=== PATIENT | male | born 1960 | race Asian ===

== ENCOUNTER 2023-02-26 10:39 | Emergency (ER) | payer OTHER, SELFPAY ==
[2023-02-26 10:58] VITALS: BP 159/106; PULSE 75; RESP 16; TEMP 36.3; O2SAT 99
--- NOTE | 2023-02-26 11:13 | ED.URI ---
HPI - URI/Sore Throat General Chief Complaint: Upper Respiratory Infection Stated Complaint: congestion,cough,sore throat,headache Time Seen by Provider: 02/26/23 11:02 Source: patient and RN notes reviewed Mode of arrival: ambulatory Limitations: no limitations History of Present Illness HPI Narrative: Patient presents today complaining of sore throat, congestion, cough, headache since last night with worsening this morning. Denies fever or shortness of breath. States son is also sick with similar symptoms. Currently rates his sore throat 03/07 and has been taking Tylenol with some mild relief of headache. Related Data Home Medications Medication Instructions Recorded Confirmed allopurinol 100 mg tablet mg 02/26/23 canagliflozin 300 mg tablet mg 02/26/23 (Invokana) enalapril maleate 5 mg tablet mg 02/26/23 fenofibrate 160 mg tablet mg 02/26/23 fluoxetine 40 mg capsule mg 02/26/23 glipizide 2.5 mg tablet, extended mg PO 02/26/23 release 24 hr loratadine 10 mg tablet mg 02/26/23 metformin 500 mg tablet,extended mg PO 02/26/23 release 24 hr metoprolol succinate 50 mg mg PO 02/26/23 tablet,extended release 24 hr metoprolol succinate 50 mg mg PO 02/26/23 tablet,extended release 24 hr montelukast 10 mg tablet mg 02/26/23 omega-3 fatty acids 500 mg PO DAILY 02/26/23 02/26/23 Review of Systems Review of Systems: CONSTITUTIONAL: Denies body aches, fever, chills, or sweats. EYES: Denies visual changes, redness, or discharge. ENT: Denies rhinorrhea, or otalgia.+ sore throat, congestion CARDIOVASCULAR: Denies chest pain, palpitations, or edema. RESPIRATORY: Denies dyspnea.+ cough GASTROINTESTINAL: Denies abdominal pain, nausea, vomiting, or diarrhea. GENITOURINARY: Denies dysuria or hematuria. SKIN: Denies rash, itching, or wounds. MUSCULOSKELETAL: Denies back pain, joint pain, or myalgia. NEUROLOGIC: Denies numbness, tingling, or weakness.+ headache PSYCH: Denies depression or anxiety. PMFSH Comments At time of signature, I have reviewed and agree with nursing past medical, surgical, social and family history unless otherwise noted. Please see nursing chart for further information. There is no relevant family history pertinent to the presenting complaint Exam Narrative: GENERAL: Mildly ill-appearing, well-nourished, and in no acute distress. HEAD: Normocephalic, atraumatic. EYES: EOMI. No redness or drainage. Conjunctivae normal. ENT: Mucous membranes pink and moist. Nares congested with rhinorrhea. TMs normal bilaterally. Throat normal. Uvula midline. NECK: Normal AROM. Supple. No lymphadenopathy. CHEST: No respiratory distress. Clear to auscultation. HEART: Regular rate and rhythm. No murmur appreciated. Normal peripheral pulses. EXTREMITIES: Normal range of motion. No edema. SKIN: Warm, dry, no rash. Capillary refill normal. Normal skin turgor. NEURO: No focal deficits. Alert and oriented x3. Gait steady. PSYCH: Normal affect. No signs of depression or anxiety. Course Course Level of Care: Express Care Visit Vital Signs Vital signs: Vital Signs Temperature 97.3 F L 02/26/23 10:58 Pulse Rate 75 02/26/23 10:58 Respiratory Rate 16 02/26/23 10:58 Blood Pressure 159/106 H 02/26/23 10:58 Pulse Oximetry 99 02/26/23 10:58 Temperature 97.3 F L 02/26/23 10:58 Pulse Rate 75 02/26/23 10:58 Respiratory Rate 16 02/26/23 10:58 Blood Pressure 159/106 H 02/26/23 10:58 Pulse Oximetry 99 02/26/23 10:58 Reviewed. Pt has been instructed to follow up with his PCP regarding his elevated blood pressure today. MDM - URI/Sore Throat MDM Narrative Medical decision making narrative: Given patient's early swab collection and son positive during this visit as well with patient with similar symptoms, I will also treat patient with amoxicillin for presumed strep infection. Anticipatory guidance given. Differential Diagnosis Differential diagnosis: Likely
== END 2023-02-26 11:33 | disposition home or self-care (01) ==
PROVIDERS: Emergency Provider Nurse Practitioner
DX: J02.9 Acute pharyngitis, unspecified (principal); Z79.84 Long term (current) use of oral hypoglycemic drugs
CPT/HCPCS: 87081; 87880; 99213; G0463

== ENCOUNTER 2024-05-05 08:03 | Emergency (ER) | payer OTHER, SELFPAY ==
--- NOTE | 2024-05-05 08:16 | ED.SKABFB ---
HPI - Skin/Abscess/Foreign Bdy General Chief complaint: Skin/Abscess/Foreign Body Stated complaint: Bite left leg Time Seen by Provider: 05/05/24 08:22 Source: patient, RN notes reviewed and old records reviewed Mode of arrival: ambulatory Limitations: no limitations History of Present Illness HPI narrative: 63 year old male patient presents to Express Care with complaints of being bit or stung by something on his left lower leg on Thursday when he was outside. He has had progressively increased redness around area with swelling of left lower leg into foot. Patient reports that he has not had any fevers chills or sweats or any body aches. Patient has 0.5cm raised lesion to the left lower medial aspect of his left lower leg with surrounding redness noted and swelling. Patient denies any pain to his left calf negative CORINNA's sign. MD complaint: insect bite/sting Onset (ago): day(s) (day 3 of symptoms) Location: [facility] Severity scale (1-10): 7 Pain Consistency: constant Treatments prior to arrival: other (cortisone ointment to area) Related Data Home Medications Medication Instructions Recorded Confirmed allopurinol 100 mg tablet 100 mg PO BID 02/26/23 05/05/24 atorvastatin 80 mg tablet 80 mg PO DAILY 02/26/23 05/05/24 canagliflozin 300 mg tablet 300 mg PO DAILY 02/26/23 05/05/24 (Invokana) enalapril maleate 5 mg tablet 5 mg PO DAILY 02/26/23 05/05/24 fenofibrate 160 mg tablet 160 mg PO DAILY 02/26/23 05/05/24 fluoxetine 40 mg capsule 40 mg PO DAILY 02/26/23 05/05/24 glipizide 2.5 mg tablet, extended 2.5 mg PO DAILY 02/26/23 05/05/24 release 24 hr loratadine 10 mg tablet 10 mg PO BID 02/26/23 05/05/24 metformin 500 mg tablet,extended 2,000 mg PO DAILY 02/26/23 05/05/24 release 24 hr metoprolol succinate 50 mg 50 mg PO DAILY 02/26/23 05/05/24 tablet,extended release 24 hr montelukast 10 mg tablet 10 mg PO DAILY 02/26/23 05/05/24 omega-3 fatty acids 500 mg PO DAILY 02/26/23 05/05/24 Allergies Allergy/AdvReac Type Severity Reaction Status Date / Time acetaminophen [From Percocet] Allergy Swelling Verified 05/05/24 08:37 lisinopril Allergy Swelling Verified 05/05/24 08:37 oxycodone [From Percocet] Allergy Swelling Verified 05/05/24 08:37 Review of Systems Review of Systems: CONSTITUTIONAL: Denies fever, chills, or sweats. CARDIOVASCULAR: Denies chest pain, palpitations, or edema. RESPIRATORY: Denies cough or dyspnea. GASTROINTESTINAL: Denies abdominal pain, nausea, vomiting SKIN: Reports redness and swelling. to the medial posterior aspect of left lower leg with lesion from bite or sting with surrounding redness Denies purulent drainage, pain to area with palpation and itching MUSCULOSKELETAL: Denies myalgia. NEUROLOGIC: Denies headache, numbness All systems reviewed & are unremarkable except as noted in HPI and below PMFSH Past Medical History Medical History Diabetes Elevated cholesterol Hypertension Sleep apnea with use of continuous positive airway pressure (CPAP) Surgical History Surgical History History of ankle surgery right ankle fusion Social History Social History (Updated 05/05/24 @ 16:29 by Dee Terry NP) Smoking status: Former smoker Additional smoking assessment comments: quit 15 years ago Alcohol intake: current Alcohol use details: rare social Substance use type: does not use Living arrangements: with family Gender identity (if verbalized by the patient): Male Comments At time of signature, agree with nursing past medical, surgical, social and family history. There is no relevant family history pertinent to the presenting complaint Exam Narrative: GENERAL: Well-appearing, well-nourished, and in no acute distress. HEAD: Normocephalic, atraumatic. EYES: PERRLA and EOMI. ENT: Nares clear, no rhinorrhea or epistaxis. Mucous membranes moist. NECK: S
[2024-05-05 08:18] VITALS: BP 160/100; PULSE 66; RESP 16; TEMP 36.6; O2SAT 100
== END 2024-05-05 08:53 | disposition home or self-care (01) ==
PROVIDERS: Emergency Provider Registered Nurse; PCP Nurse Practitioner
DX: L03.116 Cellulitis of left lower limb (principal); S80.862A Insect bite (nonvenomous), left lower leg, initial encounter; W57.XXXA Bitten or stung by nonvenomous insect and other nonvenomous arthropods, initial encounter; Z87.891 Personal history of nicotine dependence; E11.9 Type 2 diabetes mellitus without complications; Z79.84 Long term (current) use of oral hypoglycemic drugs; E78.00 Pure hypercholesterolemia, unspecified; I10 Essential (primary) hypertension; G47.30 Sleep apnea, unspecified
CPT/HCPCS: 99213; G0463

== ENCOUNTER 2024-05-10 15:42 | Emergency (ER) | payer OTHER, SELFPAY ==
[2024-05-10 15:58] VITALS: BP 142/96; PULSE 74; RESP 16; TEMP 37.1; O2SAT 99
--- NOTE | 2024-05-10 16:43 | ED.GENADULT ---
HPI - General Adult General Chief complaint: Extremity Problem,Nontraumatic Stated complaint: Left Leg Pain Time Seen by Provider: 05/10/24 16:40 Source: patient, RN notes reviewed and old records reviewed Mode of arrival: ambulatory Limitations: no limitations History of Present Illness HPI narrative: 63-year-old male to Express Care for complaint left knee pain for 2 days. Patient states that he was seen here on 05/05 and diagnosed/ treated for cellulitis left lower leg. Patient states that he returned to work on Thursday. Patient states that yesterday and today are his scheduled days off and that he has had difficulty bearing weight on left leg due to severe pain in left knee. Patient denies any prior injury or surgery to knee. Patient denies numbness, tingling, weakness. Patient ambulated to exam room with slow but steady gait. Patient sitting in exam room in no acute distress. Respirations even and nonlabored. Related Data Home Medications Medication Instructions Recorded Confirmed allopurinol 100 mg tablet 100 mg PO BID 02/26/23 05/10/24 atorvastatin 80 mg tablet 80 mg PO DAILY 02/26/23 05/10/24 canagliflozin 300 mg tablet 300 mg PO DAILY 02/26/23 05/10/24 (Invokana) enalapril maleate 5 mg tablet 5 mg PO DAILY 02/26/23 05/10/24 fenofibrate 160 mg tablet 160 mg PO DAILY 02/26/23 05/10/24 fluoxetine 40 mg capsule 40 mg PO DAILY 02/26/23 05/10/24 glipizide 2.5 mg tablet, extended 2.5 mg PO DAILY 02/26/23 05/10/24 release 24 hr loratadine 10 mg tablet 10 mg PO BID 02/26/23 05/10/24 metformin 500 mg tablet,extended 2,000 mg PO DAILY 02/26/23 05/10/24 release 24 hr metoprolol succinate 50 mg 50 mg PO DAILY 02/26/23 05/10/24 tablet,extended release 24 hr montelukast 10 mg tablet 10 mg PO DAILY 02/26/23 05/10/24 omega-3 fatty acids 500 mg PO DAILY 02/26/23 05/10/24 Allergies Allergy/AdvReac Type Severity Reaction Status Date / Time acetaminophen [From Percocet] Allergy Swelling Verified 05/10/24 17:30 lisinopril Allergy Swelling Verified 05/10/24 17:30 oxycodone [From Percocet] Allergy Swelling Verified 05/10/24 17:30 Review of Systems Review of Systems: All systems reviewed & are unremarkable except as noted in HPI and below Constitutional: Constitutional: Reports no additional constitutional complaints Eyes: Eyes: Reports no additional eye complaints ENT: Reports system reviewed and no additional complaints, except as documented Cardiovascular: Cardiovascular: Reports no additional cardiovascular complaints, Denies chest pain and Denies dyspnea Respiratory: Respiratory: Reports no additional respiratory complaints, Denies cough and Denies dyspnea Musculoskeletal: Musculoskeletal: Reports as per HPI, Reports abnormal gait, Reports arthralgias ( left knee), Denies muscle weakness, Denies numbness and Denies tingling Neurologic: Reports system reviewed and no additional complaints, except as documented Psychiatric: Psychiatric: Reports no additional psychiatric complaints PMFSH Past Medical History Medical History Diabetes Elevated cholesterol Hypertension Sleep apnea with use of continuous positive airway pressure (CPAP) Surgical History Surgical History History of ankle surgery right ankle fusion Social History Social History Smoking status: Former smoker Additional smoking assessment comments: quit 15 years ago Alcohol intake: current Alcohol use details: rare social Substance use type: does not use Living arrangements: with family Gender identity (if verbalized by the patient): Male Comments At the time of my signature, I reviewed and agree with the nursing past medical, surgical, social, and family history. There is no relevant family history pertinent to the patient complaint. Exa
== END 2024-05-10 17:07 | disposition short-term general hospital (02) ==
LOC: EXPGOSH 15:45
PROVIDERS: Emergency Provider Nurse Practitioner Family; PCP Nurse Practitioner
DX: M25.562 Pain in left knee (principal); Z87.891 Personal history of nicotine dependence; E11.9 Type 2 diabetes mellitus without complications; Z79.84 Long term (current) use of oral hypoglycemic drugs; E78.00 Pure hypercholesterolemia, unspecified; I10 Essential (primary) hypertension; G47.30 Sleep apnea, unspecified
CPT/HCPCS: 99212; G0463

== ENCOUNTER 2024-05-10 17:29 | Emergency (ER) | payer OTHER, SELFPAY ==
--- NOTE | ~2024-05-10 | XR_ITS ---
EXAM: XR knee LT min 4V DATE: 05/10/2024 18:30 HISTORY: left knee pain . COMPARISON: None available. FINDINGS: Normal mineralization. No fracture or dislocation. No lytic or blastic lesion. Mild tricom partmental left knee osteoarthritis. Quadriceps enthesopathy. No erosion or periosteal change. Soft t issue thickening and swelling anterior to the patellar tendon. IMPRESSION: No acute osseous finding the left knee. Anterior soft tissue swelling, correlate for cont usion/cellulitis. Reviewed, dictated and finalized at location K. IMPRESSION: No acute osseous finding the left knee. Anterior soft tissue swelli ng, correlate for contusion/cellulitis.
--- NOTE | ~2024-05-10 | US_ITS ---
EXAMINATION: US venous doppler [facility] DATE: 05/10/2024 18:54 INDICATION: leg swelling pain r/o dvt . TECHNIQUE: Grayscale images without and with compression and Doppler images of the left lower extremi ty veins were obtained. COMPARISON: None FINDINGS: The left common femoral vein, profunda (deep) femoral vein, femoral vein, popliteal vein, peroneal v ein, posterior tibial veins, and greater saphenous vein are patent. IMPRESSION: Patent left lower extremity veins. No evidence of deep venous thrombosis. Reviewed, dictated and finalized at location K.
[2024-05-10 17:35] VITALS: BP 157/92; PULSE 78; RESP 20; TEMP 36.6; O2SAT 100
--- NOTE | 2024-05-10 18:14 | ED.EXTPRO ---
HPI - Extremity Problem General Chief complaint: Extremity Problem,Nontraumatic Stated complaint: sent from for possible cellulitis Time Seen by Provider: 05/10/24 20:46 Source: patient Mode of arrival: ambulatory Limitations: no limitations History of Present Illness HPI Narrative: This is a 63-year-old male that presents to the emergency department for left knee pain. Ongoing since last night. Reports swelling of the area. Reports history of gout. Reports pain with range of motion and weight-bearing. No recent injury or trauma. Denies fevers, erythema. Related Data Home Medications Medication Instructions Recorded Confirmed allopurinol 100 mg tablet 100 mg PO BID 02/26/23 05/10/24 atorvastatin 80 mg tablet 80 mg PO DAILY 02/26/23 05/10/24 canagliflozin 300 mg tablet 300 mg PO DAILY 02/26/23 05/10/24 (Invokana) enalapril maleate 5 mg tablet 5 mg PO DAILY 02/26/23 05/10/24 fenofibrate 160 mg tablet 160 mg PO DAILY 02/26/23 05/10/24 fluoxetine 40 mg capsule 40 mg PO DAILY 02/26/23 05/10/24 glipizide 2.5 mg tablet, extended 2.5 mg PO DAILY 02/26/23 05/10/24 release 24 hr loratadine 10 mg tablet 10 mg PO BID 02/26/23 05/10/24 metformin 500 mg tablet,extended 2,000 mg PO DAILY 02/26/23 05/10/24 release 24 hr metoprolol succinate 50 mg 50 mg PO DAILY 02/26/23 05/10/24 tablet,extended release 24 hr montelukast 10 mg tablet 10 mg PO DAILY 02/26/23 05/10/24 omega-3 fatty acids 500 mg PO DAILY 02/26/23 05/10/24 Allergies Allergy/AdvReac Type Severity Reaction Status Date / Time acetaminophen [From Percocet] Allergy Swelling Verified 05/10/24 17:30 lisinopril Allergy Swelling Verified 05/10/24 17:30 oxycodone [From Percocet] Allergy Swelling Verified 05/10/24 17:30 Review of Systems Review of Systems: CONSTITUTIONAL: Denies fever SKIN: Denies erythema MUSCULOSKELETAL: Reports joint pain, and myalgia. NEUROLOGIC: Denies numbness All systems reviewed & are unremarkable except as noted in HPI and below PMFSH Past Medical History Medical History Diabetes Elevated cholesterol Hypertension Sleep apnea with use of continuous positive airway pressure (CPAP) Surgical History Surgical History History of ankle surgery right ankle fusion Social History Social History Smoking status: Former smoker Additional smoking assessment comments: quit 15 years ago Alcohol intake: current Alcohol use details: rare social Substance use type: does not use Living arrangements: with family Gender identity (if verbalized by the patient): Male Exam Narrative: GENERAL: Well-appearing, well-nourished, and in no acute distress. HEAD: Normocephalic, atraumatic. EYES: EOMI. CHEST: Clear to auscultation. No respiratory distress. No wheezes rales or rhonchi HEART: Regular rate and rhythm. No murmur heard. Normal peripheral pulses. EXTREMITIES: Normal range of motion. Mild edema about the left knee anteriorly. No erythema. Normal DP pulse SKIN: Warm, dry, no rash. NEURO: No focal deficits. Alert and oriented x3. PSYCH: Normal mood and affect Course Course Emergency Course: Patient was updated on workup and recommendation for further evaluation. He would like to be discharged at this time. Reports he has an appointment with his primary tomorrow and will follow-up Vital Signs Vital signs: Vital Signs Temperature 98 F 05/10/24 17:35 Pulse Rate 78 05/10/24 17:35 Respiratory Rate 20 05/10/24 17:35 Blood Pressure 157/92 H 05/10/24 17:35 Pulse Oximetry 100 05/10/24 17:35 Oxygen Delivery Room Air 05/10/24 17:35 Temperature 97.7 F 05/10/24 22:03 Pulse Rate 67 05/10/24 22:03 Respiratory Rate 18 05/10/24 22:03 Blood Pressure 176/96 H 05/10/24 22:03 Pulse Oximetry 97 05/10/24 22:03 Oxygen
[2024-05-10 21:35] LABS: Basophils Absolute Auto 0.1 K/mm3 (0.0-0.1); Basophils Percent Auto 0.8 % (0.2-1.2); Eosinophils Absolute Auto 0.2 K/mm3 (0-0.3); Eosinophils Percent Auto 2.8 % (0-4.4); Hematocrit 41.9 % (42.0-52.0); Hemoglobin 14.3 g/dL (14.0-18.0); Immature Granulocyte Absolute 0.03 K/mm3 (0.00-0.031); Immature Granulocyte Percent A 0.4 % (0-0.5); Lymphocytes Absolute Auto 1.49 K/mm3 (0.9-3.2); Lymphocytes Percent Auto 20.7 % (18.3-44.2); Mean Corpuscular HGB Conc 34.1 g/dl (32-36); Mean Corpuscular Hemoglobin 30.4 pg (26-34); Mean Corpuscular Volume 89.1 fl (80-100); Mean Platelet Volume 9.5 fl (7.4-10.4); Monocytes Absolute Auto 0.6 K/mm3 (0.1-0.6); Monocytes Percent Auto 8.6 % (2.6-8.5); Neutrophils Absolute Auto 4.8 K/mm3 (1.3-6.7); Neutrophils Percent Auto 66.7 % (45.5-73.1); Platelet Count Result 245 k/mm3 (150-375); Red Cell Distribution Width 12.5 % (11.5-14.5); White Blood Count 7.2 K/mm3 (4.5-10.0)
[2024-05-10 21:44] LABS: Lactic Acid Reflex 3.2 mmol/L (0.7-2.0)
[2024-05-10 21:45] LABS: Uric Acid 4.9 mg/dL (3.5-8.5)
[2024-05-10 21:51] LABS: Alanine Aminotransferase 18 U/L (6-50); Albumin Level 4.3 g/dL (3.5-5.1); Alkaline Phosphatase 49 U/L (38-126); Anion Gap 10 mmol/L (4-12); Aspartate Amino Transferase 24 U/L (17-59); Bilirubin,Total 0.6 mg/dL (0.2-1.3); Blood Urea Nitrogen 18 mg/dL (9-20); CRP 1.2 mg/dL (<1.0); Calcium 9.2 mg/dL (8.4-10.2); Carbon Dioxide 23 mmol/L (22-30); Chloride 104 mmol/L (98-107); Estimated CRCL calculation 90 ml/min; Estimated Glomerular Filt Rate > 60; Glucose 186 mg/dL (65-110); Potassium 3.8 mmol/L (3.4-5.0); Sodium 137 mmol/L (137-145)
[2024-05-10] MEDS: INDOMETHACIN 25 MG CAPSULE 50 MG PO (21:55)
[2024-05-10 22:03] VITALS: BP 176/96; PULSE 67; RESP 18; TEMP 36.5; O2SAT 97
[2024-05-10] MEDS: SODIUM CHLORIDE 0.9% IV 1,000 ML 999 ML IV CONT (22:27)
[2024-05-10 22:32] LABS: Erythrocyte Sedimentation Rate 15 mm/hr (0-20)
[2024-05-11 00:31] LABS: Reflex Lactic Acid Yes or No Add Lactic
[2024-05-11 00:34] VITALS: BP 137/79; PULSE 79; RESP 16; TEMP 36.5; O2SAT 98
--- NOTE | 2024-05-11 00:36 | PC.NURSE ---
pt verbalized to JOSHUA Cho that he had an eve wrap at home. No eve wrap applied in this er.
== END 2024-05-11 00:36 | disposition home or self-care (01) ==
PROVIDERS: Nurse Practitioner Family; Emergency Provider Physician Assistant; PCP Family Medicine
DX: M70.52 Other bursitis of knee, left knee (principal); M10.9 Gout, unspecified; E87.20 Acidosis, unspecified; R60.0 Localized edema; I10 Essential (primary) hypertension; E11.9 Type 2 diabetes mellitus without complications; E78.00 Pure hypercholesterolemia, unspecified; G47.30 Sleep apnea, unspecified; Z87.891 Personal history of nicotine dependence; Z79.899 Other long term (current) drug therapy; Z79.84 Long term (current) use of oral hypoglycemic drugs
CPT/HCPCS: 36415; 73564; 80053; 83605; 84550; 85025; 85652; 86140; 93971; 96360; 99284; A9270; J7030

== ENCOUNTER 2025-04-01 21:01 | Emergency (ER) | payer OTHER, SELFPAY ==
[2025-04-01 21:02] VITALS: BP 155/91; PULSE 73; RESP 20; TEMP 36.4; O2SAT 95
--- OUTSIDE RECORDS SUMMARY | 2025-04-01 21:03 | XMS_ITS | Encounter Summary ---
Author Name [facility] Organization [facility] Address [address] [place] [address] Care Team Providers Care Maintenance Department Manager Name Role Phone DILEEP HENNING Primary Care Provider Unavailabl e Selected Encounter This section includes the information on record at [place] for the Encounter. Date/Time Encounter Type Encounter Description Reason Pro vider Source IHE Encounter Template Text not used by [facility] Advance Directives: All historical and current Section Date Range: From patient's date of to the date document was created. This section includes ALL of a patient's completed or amended [place] Advance and Rescinded Directives. The entries below indicate that a directive exists for the patient, but an actual copy is not included with this document. The data comes from all [place] facilities. Date Advance Directives Provider Source February 19, 2017 ADVANCE DIRECTIVE DISCUSSION MICHEAL DALTON [facility]
--- OUTSIDE RECORDS SUMMARY | 2025-04-01 21:03 | XMS_ITS | Data Portability ---
Author Organization [facility], 800 [facility] ([place]) Address [address] [place] [address] Care Team Providers Care Cleat Blanker Name Role Phone LISA TANO Primary Care Provider [facility] Referring Provider Assessment Encounter Date Assessment Date Assessment LastModified by Organization Details LastModified Time 11/17/2024 11/17/2024 ASSESSMENT: 1. Right acute ankle pain, status post injury. 2. 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 PLAN: At this point in time this could be an exacerbation of severe arthrosis with an injury. The arthrosis probably stems from his tibiotalar fusion. Our recommendation is to obtain an weightbearing CAT scan to evaluate this. We will see him back after the results. CHIEF COMPLAINT: Right ankle pain. HISTORY OF PRESENT ILLNESS: The patient presents today regarding his right ankle. He had a fusion a few years ago, but recently a couple of months ago he stepped off of some type of platform approximately 2-3 feet high, and landed awkwardly. He has had pain ever since. He has been concerned about this as it is an achy pain. It hurts him all throughout the ankle, but anterolaterally specifically. He has been taking anti-inflammatorie s, modifying his activities. He is here today for evaluation and treatment. PHYSICAL EXAMINATION: CONST: No acute distress. EYES: No icterus. RESP: Breathing appears normal. No use of accessory muscles. CV: Pulses palpable in feet. MSK: On standing alignment, unable to do single-leg heel rise. On sitting examination, tender over the sinus tarsi, slightly over the medial malleolus and lateral malleolus. There is mild edema. SKIN: No jaundice. PSYCH: Stable mood and affect. NEURO: No speech difficulty. Reviewed pertinent diagnostic tests, lab work, and imaging. These were reviewed with the patient. X-rays independently reviewed. 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 PLAN: At this point in time, we discussed his findings of severe arthrosis. We talked about operative and nonoperative treatment. Operative intervention would entail right subtalar fusion at proximal tibia autograft. The risks, benefits and alternatives were discussed. CHIEF COMPLAINT: Right ankle CT follow up. HISTORY OF PRESENT ILLNESS: The patient returns today overall doing the same. He is having pain on a daily basis. It hurts him. It is an achy pain in his ankle. He is here today to discuss his CT scan. PHYSICAL EXAMINATION: CONST: No acute distress. EYES: No icterus. RESP: Breathing appears normal. No use of accessory muscles. CV: Pulses palpable in feet. MSK: Patient s right lower extremity is neurovascularly intact, strength is 5/5, capillary refill is brisk, and sensations are intact. Range of motion is intact as expected. Minimal pain with subtalar motion. Mild edema. Tender over the sinus tarsi. SKIN: No jaundice. PSYCH: Stable mood and affect. NEURO: No speech difficulty. Reviewed pertinent diagnostic tests, lab work, and imaging. These were reviewed with the patient. X-rays and CT scan reviewed independently. [email or web address] Not available 12/06/2024 18:22:51 03/30/2025 03/30/2025 Grant returns today following right ankle hardware removal, subtalar fusion, proximal tibial bone graft. Patient is doing well. Pain has been well-controlled. Physical exam: Incision is well-healed. Calf is soft and nontender on operative extremity. Normal neurovascular function to the operative extremity. Plan: Patient was placed into boot today. Boot is to remain on at all times. Continue to remain nonweightbearing. Patient is to contact our office if they have any questions, concerns, or further problems. Follow up at 6 weeks post-op with x-rays. Patient was also given physical therapy order to set up physical therapy to start after their next appointment. [email or web address] Not available 03/30/2025 10:19:38 Plan of Treatment Reminders Order Date Submit Date Provider Last Modified By Organization Details Last Modified Time Details Appointments Establish ed Patient 10 XR.EST 2024 09:50A M Dr. Brian Marcos Not available Not available Not available Lab None recorded. Referral None recorded. Procedures None recorded. Surgeries None recorded. Imaging CT, ankle, w/o contrast - Procedure : RT ANKLE CT W/O CPT: 64507 ICD10/Dx: M25.571 DOS: TBD Facility: [address] Ordering Provider: BRIAN MARCOS MD Insurance : [place] Notes: 2024 025 [facility], [address] [place] [address], [address], 11/29/2024 14:52:48 Medication Orders None recorded. Patient TargetsNo targets recorded. Patient InstructionsNo instructions recorded. Reason for Referral None Reported. Results Created Date Observation Date Name Description Value Unit Range Abnormal Flag Note LastModifiedBy Organization Detail LastModifiedTime 11/22/19 25 11/17/2024 XR, ankle , 3 or more view [address] [address] Teleph one Name: Grant Sr [id number] am Date: 2024 Age: 63Phys ician: Ezequiel tinoco MD, Luca in : 1960Ex aminat ion: XR ANKLE COMPLE TE RIGHT EXAM: 3 views right ankle HISTOR Y: Pain FINDIN GS: Previo us tibiot alar arthro desis site appear s be well-h ealed. Subtal ar arthro sis is noted in appear s to be modera te to severe . There may be promin ent hardwa re within the subtal ar joint. No acute fractu res. IMPRES KYLE: Likely modera te to severe subtal ar arthro sis. Previo us tibiot alar arthro desis. Electr onical ly signed in Osborn cribe by: LUCA Tinoco MD on:10/30 7:14 AM cc: Page PAGE 1 of [facility] ES 1 INTERFACE [facility] Only - [facility] [address], [place], [address], 11/22/2024 08:17:50 11/30/19 25 11/29/2024 CT, ankle , w/o contr ast [facility] [address] [place] [address] Teleph one [phone] Name: Grant Sr [id number] am Date: 2024 Age: 63Phys ician: Ezequiel tinoco MD, Benjam in : 1960Ex aminat ion: CT ANKLE RIGHT EXAM: CT right ankle and foot withou t IV contra st HISTOR Y: Sandra g injury on right ankle a few months ago. Contin ued pain to rosmery latera l region . Prior fusion . TECHNI QUE: CT of the right ankle and foot was perfor med withou t IV contra st admini strati on. Campbell l and sagitt al reform atted images were obtain ed. Automa josep exposu re contro l was used as a dose optimi zation techni que for the examin ation. 3-D volume render ed images were also obtain ed. COMPAR JOSUE: X-rays 025. FINDIN GS: There is solid tibiot alar and distal tibiof ibular osseou s bridgi ng. There is dorsal plate and screw fixati on fernando sing the tibiot alar joint. No hardwa re compli cation presen t. There is severe anteri or production broacher ior subtal ar osteoa rthrit is. There is mild to modera te midfoo t and first MTP osteoa rthrit is. There are small degene rative calcan eal enthes ophyte s. No fractu re, disloc ation or osseou s resorp tion presen t. IMPRES KYLE: 1. Solid ankle arthro deses. No compli cation . 2. Severe subtal ar osteoa rthrit is. Electr onical ly signed in Osborn cribe by: DANIEL SANTANA MD on:11/29 1:49 PM cc: Page PAGE 1 of [facility] ES 1 [email or web address] [facility] [address], [place], [address], 11/29/2024 17:31:24 01/24/20 25 06/19/2021 imagi ng/di agnos tic resul t No observ ation record ed. [email or web address] Not Available 07:29:34 01/24/2009/18/2021 imagi ng/di agnos tic resul t No observ ation record ed. [email or web address] Not Available 07:29:37 Result Notes Documentation Provider Name and Address Organization Details Recorded Time Xr, Ankle, 3 Or More View : [facility] [address] [place] [address] Name: Grant Saenz Date: 11/17/2024 Age: 63Physician: MD Marcos Benjamin : 1960Examination: XR ANKLE COMPLETE RIGHT EXAM: 3 views right ankle HISTORY: Pain FINDINGS: Previous tibiotalar arthrodesis site appears be well-healed. Subtalar arthrosis is noted in appears to be moderate to severe. There may be prominent hardware within the subtalar joint. No acute fractures. IMPRESSION: Likely moderate to severe subtalar arthrosis. Previous tibiotalar arthrodesis. Electronically signed in PowerScribe by: BRIAN MARCOS MD on:11/22/2024 7:14 AM cc: Page PAGE 1 of [facility] 1 [facility] Available [facility] 11/22/[facility]24 08:17:50 Ct, Ankle, W/o Contrast : [facility] [address] [place] [address] Name: Grant Saenz Date: 11/29/2024 Age: 63Physician: MD Marcos Benjamin : 1960Examination: CT ANKLE RIGHT EXAM: CT right ankle and foot without IV contrast HISTORY: Landing injury on right ankle a few months ago. Continued pain to anterolateral region. Prior fusion. TECHNIQUE: CT of the right ankle and foot was performed without IV contrast administration. Coronal and sagittal reformatted images were obtained. Automated exposure control was used as a dose optimization technique for the examination. 3-D volume rendered images were also obtained. COMPARISON: X-rays 11/17/2024. FINDINGS: There is solid tibiotalar and distal tibiofibular osseous bridging. There is dorsal plate and screw fixation traversing the tibiotalar joint. No hardware complication present. There is severe anterior posterior subtalar osteoarthritis. There is mild to moderate midfoot and first MTP osteoarthritis. There are small degenerative calcaneal enthesophytes. No fracture, dislocation or osseous resorption present. IMPRESSION: 1. Solid ankle arthrodeses. No complication. 2. Severe subtalar osteoarthritis. Electronically signed in PowerScribe by: DANIEL SANTANA MD on:11/29/2024 1:49 PM cc: Page PAGE 1 of [facility] 1 Brian Marcos MD [address] [place] [address], [phone], [facility] 11/29/2024 17:31:24 Problems Name Problem SNOMED Code Status Onset Date Resolution Date Notes Provider Name and Address Organization Details Recorded Time Chronic ankle pain 3509688095354 9 [facility] 2024 [facility] 14:29:15 Osteoarthri tis of joint of right ankle and/or foot 9521664599963 09 Active 2024 Daisy Ortiz [facility] 5 21:04:36 Problem Notes None recorded. Procedures Surgical History Date Name Laterality Status Provider Name and Address Organization Details Recorded Time 03/15/20 25 subtalar arthrodesis [facility] 03/15/2025 16:21:17 Colonoscopy with biopsy completed Not Available Health Note 11/11/2024 17:12:04 Imaging Results None recorded. Procedure Notes None recorded. Medical Equipment None Reported. Allergies Allergen ID Allergen Name Allergen Category Reaction Reaction Severity Criticality Documentation Date Start Date Code Code System Note Provider Name and Address Organization Details Recorded Time 2457801 Product containin g angiotens in-conver ting enzyme inhibitor (product) medicatio n cough Not available Not available 10/28/20232013 75450 009 SNOMED React ion: Cough ; Not Available [facility] 4 04:30:11 7732274 empaglifl ozin medicatio n Not available Not available Not available 07/06/20242023 46585 53 RxNorm Not Available [facility] 4 20:28:10 5820328 acetamino phen / oxycodone medicatio n Not available Not available [facility] 07/06/20242012 31890 3 RxNorm throa t swell ing Antoinette Tanmay [facility] 5 13:23:33 8729895 lisinopri l medicatio n swelling Not available Not available 07/06/20242017 40393 RxNorm Antoinette Keavy [facility] 5 13:22:41 9971125 chlorphen iramine / phenylpro panolamin e medicatio n Not available Not available Not available 02/27/20252006 32805 4 RxNorm Antoinette Tanmay [facility] 5 13:23:49 907849 acetamino phen / oxycodone medicatio n Not available Not available Not available 10/26/20232011 89406 3 RxNorm Not Available [facility] 4 21:48:02 168439 losartan potassium medicatio n Not available Not available Not available 10/26/20232011 00088 0 RxNorm Not Available [facility] 4 21:48:02 Medications Name Sig Start Date Stop Date Status Note LastModified by Organization Details LastModified Time clindamycin HCl 300 mg capsule TAKE 1 CAPSULE BY MOUTH EVERY 8 HOURS WITH FOOD active Not Available Not Available No t Available hydrocodone 5 mg-acetamin ophen 325 mg tablet Take 1-2 tablet(s) EVERY 6 HOURS by oral route. 2024 active Not Available Not Available Not Avai lable acetaminoph en 300 mg-codeine 30 mg tablet TAKE 1-2 TABLETS BY MOUTH EVERY 6 HOURS NEEDED 02/27 completed Not Available Not Available Not Available hydrocodone 7.5 mg-acetamin ophen 325 mg tablet TAKE 1 TABLET BY MOUTH EVERY 6 HOURS NEEDED FOR PAIN active Not Available Not Available No t Available indomethaci n 50 mg capsule TAKE 1 CAPSULE BY MOUTH THREE TIMES DAILY WITH FOOD OR MILK FOR 1 WEEK active Not Available Not Available No t Available mupirocin 2 % topical ointment APPLY TOPICALLY TO THE AFFECTED AREA TWICE DAILY active Not Available Not Available No t Available Vitals None Recorded Social History Question Answer Notes LastModified by Organizat ion Details LastModified Time Tobacco Smoking Status Former Smoker Not Available Health Note 11/11/2024 17:12:04 Do You Have An Advance Directive? No [email or web address] Information not available 11/11/2024 What Is Your Level Of Caffeine Consumption? Occasional [email or web address] Information not available 11/11/2024 How Many Times Per Week Do You Exercise? Less Than 1 Time Per Week [email or web address] Information not available 11/11/2024 When Did You Quit Smoking? 2005 [email or web address] Information not available 11/11/2024 What Was The Date Of Your Most Recent Tobacco Screening? 11/17/2024 [email or web address] Information not available 11/11/2024 What Is Your Relationship Status? [email or web address] Information not available 11/11/2024 Sex: Unknown Functional Status Question Answer Note LastModified by Organizat ion Details LastModified Time How many times per week do you consume alcohol? Less than 1 time per week [email or web address] Information not available 11/11/2024 Do you use any illicit or recreational drugs? No [email or web address] Information not available 11/11/2024 What is your level of alcohol consumption? Occasional [email or web address] Information not available 11/11/2024 Are you currently employed? 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 Occasional [email or web address] Information not available 11/11/2024 Mental Status None recorded. Family History Relationship Description Onset Age of this Age Resolved Age Notes LastModified by Organization Details LastModified Time Mother Alzheimer's disease [email or web address] Not available 2024 17:12:03 Mother Arthritis [email or web address] Not available 11/11/2024 17:12:03 Mother Kidney disease [email or web address] Not available 2024 17:12:03 Brother Asthma [email or web address] Not available 0 11/11/2024 17:12:03 Brother Hypertensive disorder [email or web address] Not available 2024 17:12:03 Sister Family history of malignant neoplasm [email or web address] Not available 2024 17:12:03 Father Hypertensive disorder [email or web address] Not available 2024 17:12:03 Father Cerebrovascu lar accident [email or web address] Not available 17:12:03 Medical History Condition Response High Blood Pressure Y COPD N Depression N Anxiety Disorder N Arthritis Y Cancer N Stroke N Fibromyalgia N Kidney Disease N Attention-deficit Hyperactivity Disorder N Thyroid Problems Y Anemia N Diabetes Y Bleeding Disorder N Hyperlipidemia N Asthma N Seizures N Heart Disease N Osteoporosis Y Past Encounters Encounter ID Performer Location Encounter Start Date Encounter Closed Date Diagnosis/Indication Diagnosis SNOMED-CT Code Diagnosis ICD10 Code Diagnosis Note [id number] Brian Marcos MD [address] [facility]) [address] [place] [address] 11/17/2024 10:03:30 11/17/2024 11:25:56 Chronic ankle pain 3023757265 9109 M25.571 G89.29 Exhaustion due to excessive exertion 77488546 X50.1XXA History of arthrodesis 952162910 Z98.1 [id number] Brian Marcos MD [facility] ([place]) [address], [place] [address] 12/06/2024 09:25:36 12/06/2024 09:47:36 Osteoarthritis of joint of right ankle and/or foot 5533812088 92042 M19.071 History of arthrodesis 318483616 Z98.1 [id number] Germain Powers PA-C [address] [facility] ([place] [address] [place] [address] 03/30/2025 10:14:48 03/31/2025 06:44:49 Osteoarthritis of joint of right ankle and/or foot 7640209074 92742 M19.071 Health Concerns Section Related Observation LastModified by Organization Detai ls LastModified Time None Recorded Concern Status LastModified by Organization Details LastModified Time None Recorded Advance Directives Directive N: Payers Insurance Date Sequence Insurance Name Policy Number Policy Lund Covered Member ID Lund Member ID Guarantor Name 03/29/2025 [facility] Grant Saenz [id number] Grant Saenz 03/27/2025 [employer] (MOVED TO HOLD) Grant Saenz Notes Date Note Type Note Provider Name and Address Organization Details Recorded Time 11/17/2024 text/html Grant Aly a 63 year oldmalepresenting for care. Visit Reason: Ankle or Foot Ankle/Foot/Toe Concerns: -Location: -arch of right foot, dorsal surface of right foot -right anterior, posterior, lateral ankle -Setting of injury/concern: Lost balance and fell approx. 2 -3 ft. High -Sports related injury: no -Duration: approximately 03 month(s) -Pain onset/timing: sudden onset, occurs at night, interrupts sleep -Severity of pain: current severity 06/07 -Quality of pain: aching, sharp, stabbing, throbbing -Exacerbating factors: weight-bearing, walking -Alleviating factors: elevation of ankle/foot, non-weight bearing -Patient complains of: difficulty ambulating, limited ROM -Denies: ecchymosis, catching/locking, deformity, drainage, fevers, warmth, instability, numbness, popping/clicking, erythema, swelling of surrounding area, tightness of shoes, wound/laceration of the affected area -Supportive treatments tried: OTC ankle brace -Prior ankle/foot surgery: yes, described by patient as Right ankle fused, done approximately 04 year(s) ago -Pain impacting ADLs: yes Treatments: -Seen by outside providers: yes, per patient Idusuyi -Prior imaging/studies:MRI, X-ray -Prior imaging/studies location:[facility] -Previous treatments: injections, medications, occupational therapy, physical therapy, surgery -Prior injections: did not improve pain, last injection approximately 6 year(s) ago -Prior medications: Ibuprofen, tylenol , last treatment approximately 3 year(s) ago -Prior occupational therapy: improved symptoms a little, last treatment approximately 3 year(s) ago -Denies prior: acupuncture, chiropractic treatments -Prior injury/difficulty with affected area: patient denies Additional Information: -[place] Referral: Yes -Concern origination: OTHER Camping ROS: General:Unplanned Weight Gain/Loss Cardiac:Negative Respiratory:Negative GI:Negative :Negative Musculoskeletal:Negati ve Skin:Negative Neuro:Negative Endo:Negative Hem:Negative Brian Marcos MD [address] [place] [address], [phone], [facility] 11/18/2024 08:45:26 12/06/2024 text/html Grant Felicianogermaine a 63 year oldmalepresenting for care. Brian Marcos MD [address] [place] [address], [phone], [facility] 12/07/2024 13:41:39 03/30/2025 text/html Grant Aly a 64 year oldmalepresenting for care. Germain Powers PA-C [address] [place] [address], [phone], [facility] 03/30/2025 10:31:13
--- OUTSIDE RECORDS SUMMARY | 2025-04-01 21:04 | XMS_ITS | Encounter Summary ---
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
--- OUTSIDE RECORDS SUMMARY | 2025-04-01 21:04 | XMS_ITS | Encounter Summary ---
Author Name [facility] [place] [facility] [place] [facility] [place] Address [address] [place] [address] Care Team Providers Care Scientist Immunology Name Role Phone DILEEP HENNING Primary Care Provider Unavailabl e Selected Encounter This section includes the information on record at [place] for the Encounter. Date/Time Encounter Type Encounter Description Reason Pro vider Source Mar 01, 2025 05:59 AM Outpatient Encounter COMMUNITY CARE CONSULT IHE Encounter Template Text not used by [place] Plan of Treatment: Future Appointments (+ 6 months) and Future Tests (+/- 45 days) The Plan of Treatment section includes future care activities for the patient from all [place] treatmentfacilities. This section includes future appointments and future orders which are active, pending or scheduled. Future Appointments This section includes appointments that were scheduled to occur 6 months from the date of the Encounter, up to a maximum of 20 appointments. The data comes from all [place] treatment facilities. Appointment Date/Time Appointment Type Appointme nt Facility Name Apr 07, 2025 10:30 AM AMBULATORY - NONE [facility] May 23, 2025 11:00 AM AMBULATORY - MEDICINE [facility] Active, Pending, and Scheduled Orders This section includes a listing of several types of active, pending, and scheduled orders, including clinic medications orders, diagnostic test orders, procedure orders and consult orders; where the start date of the order is 45 days before the date of the Encounter or 45 days after the date of theEncounter. The data comes from all [place] treatment facilities. Test Date/Time Test Type Test Details Facility Name Feb 28, 2025 04:44 PM Consult Order [facility]LE[facility] MANDIBULAR REPOSITIONING DEVICE STL Cons [employer] [facility] Social History: Smoking Status (Most current) and Tobacco Use (All prior to encounter date) This section includes the most current, and the historical, smoking and tobacco- related health factors from the [place] facility where the Encounter took place. Current Smoking Status This section includes the most current smoking, or tobacco-related health factor, from the [place] facility where the Encounter took place. Date/Time Current Smoking Status Comment Facil ity Sep 30, 2019 11:19 AM VA-TOBACCO FORMER USER [facility] Tobacco Use History This section includes a history of the smoking, or tobacco-related health factors, that were collected on or before the date of the Encounter. The data comes from the [place] facility where the Encounter took place. Date/Time Smoking Status/Tobacco Use Comment F acility Sep 30, 2019 11:19 AM [place]-TOBACCO QUIT 5 TO < 15 YRS [facility] February 11, 2017 09:46 AM QUIT TOBACCO >7 YEARS AGO [facility] February 20, 2016 09:01 AM LIFETIME NON-USER OF TOBACCO [facility] Dec 22, 2014 11:03 AM LIFETIME NON-USER OF TOBACCO [facility] Dec 30, 2013 09:52 AM LIFETIME NON-USER OF TOBACCO [facility] Aug 03, 2012 10:16 AM QUIT TOBACCO >12 M O & <7 YRS AGO [facility] Advance Directives: All historical and current Section Date Range: From patient's date of to the date document was created. This section includes ALL of a patient's completed or amended [place] Advance and Rescinded Directives. The entries below indicate that a directive exists for the patient, but an actual copy is not included with this document. The data comes from all [place] facilities. Date Advance Directives Provider Source February 19, 2017 ADVANCE DIRECTIVE DISCUSSION MICHEAL DALTON [facility] Encounter Notes: All associated encounter notes This section contains the clinical notes associated to the Encounter. Date/Time Encounter Note(s) Provider Source Mar 01, 2025 05:59 AM NONVA NOTE: LOCAL TITLE: COMMUNITY CARE-CARE COORDINATION PLAN NOTE [address] STAND[address] TITLE: NONVA NOTE DATE OF NOTE: MAR 01, 2025@05:59 ENTRY DATE: MAR 01, 2025@05:59:43 AUTHOR: RAVINDRA PRICE EXP COSIGNER: URGENCY: STATUS: COMPLETED Community Care Consult: [facility] SLEEP MANDIBULAR REPOSITIONING DEVICE Consult No: [id number] [facility] Referral #: [id number] Chief Complaint: Obstructive Sleep Apnea Patient Admitted? No Level of Care Coordination Moderate Care Coordination was determined from: Chart Review Facility Community Care Office Contact Care Coordination Point of Contact: Ravindra Price RN Services: Moderate Care Coordination Services Case Management, if appropriate Direct communications with interdisciplinary team Continuation of care with current Provider. Auth. to be sent to [facility] and Fax to Provider. Assistance with navigation of scheduling, as needed. Obtain medical records and/or RFS form. Follow up with Episodes of care for Sleep medicine and recommended treatment. /es/ RAVINDRA PRICE REGISTERED NURSE Signed: 03/01/2025 06:02 RAVINDRA PRICE [facility]
--- OUTSIDE RECORDS SUMMARY | 2025-04-01 21:04 | XMS_ITS | Encounter Summary ---
Author Name [facility] [place] Organization [facility] [place] Address [address] [place] [address] Care Team Providers Care Peoplesoft Functional Analyst Name Role Phone DILEEP HENNING Primary Care Provider Unavailabl e Selected Encounter This section includes the information on record at [place] for the Encounter. Date/Time Encounter Type Encounter Description Reason Provider Source Aug 18, 2024 02:30 PM OFFICE O/P EST LOW 20 MIN PRIMARY CARE/MEDICINE ICD-10-CM M25.571 Pain in right ankle and joints of right foot DILEEP HENNING [facility] Encounter Template Text not used by [place] Assessments - Encounter Diagnoses This section includes the primary and secondary diagnoses documented for the Encounter. Date/Time Primary/Secondary Diagnosis Diagnosis Name Provider Source Aug 18, 2024 03:38 PM PRIMARY Pain in right ankle and joints of right foot DILEEP HENNING [facility] Aug 18, 2024 03:38 PM SECONDARY Encounter for immunization KALEN REYES [facility] Plan of Treatment: Future Appointments (+ 6 months) and Future Tests (+/- 45 days) The Plan of Treatment section includes future care activities for the patient from all [place] treatmentfacilities. This section includes future appointments and future orders which are active, pending or scheduled. Future Appointments This section includes appointments that were scheduled to occur 6 months from the date of the Encounter, up to a maximum of 20 appointments. The data comes from all [place] treatment facilities. Appointment Date/Time Appointment Type Appointme nt Facility Name Nov 17, 2024 10:00 AM AMBULATORY - SURGERY [facility] Cate [facility] Nov 23, 2024 09:00 AM AMBULATORY - MEDICINE [facility] Lab Results: +/- 30 days of the encounter This section includes the Chemistry and Hematology Lab Results on record with [place] for the patient. Radiology Reports and Pathology Reports are provided separately, in subsequent sections. Lab Results This section contains the Chemistry/Hematology Results that were resulted 30 days before or 30 daysafter the date of the Encounter. Date/Time Source Result Type Result - Unit Interpretation Reference Range Specimen Type Comment Aug 18, 2024 02:33 PM [facility] GLUCOSE,BLOOD-poct (STL) BLOOD Specimen Type: BLOOD Comment: Test Performed by: [id number] Meter #: [id number] Ordering Provider: DILEEP HENNING Report Released Date/Time: Aug 18, 2024 03:57 PM Reporting Lab: [address] [id number] Performing Lab: [address] [id number] GLUCOSE,BLOOD-poct (STL) 124 mg/dL H 72-99 Vital Signs: All taken on the encounter date This section contains inpatient and outpatient Vital Signs collected on the date of the Encounter. Date/Time Temperature Pulse Blood Pressure Respiratory Rate SP02 Pain Height Weight Body Mass Index Source Aug 18, 2024 02:31 PM 98 79 128/75 16 97 4 71 216.2 30 [facility] Immunizations: All administered on the encounter date This section contains immunizations associated to the Encounter. Immunization Series Date Issued Administered By Site Reaction Lot Number CVX Code Drug Sales Leader Comment(s) Source INFLUENZA, SPLIT VIRUS, TRIVALENT, PF Aug 18, 2024 JACOB REYES A LEFT DELTO ID [id number] [facility] Social History: Smoking Status (Most current) and Tobacco Use (All prior to encounter date) This section includes the most current, and the historical, smoking and tobacco- related health factors from the [facility] where the Encounter took place. Current Smoking Status This section includes the most current smoking, or tobacco-related health factor, from the [place] facility where the Encounter took place. Date/Time Current Smoking Status Comment Suresh diamond May 24, 2024 09:00 AM VA-TOBACCO FORMER USER [facility] Tobacco Use History This section includes a history of the smoking, or tobacco-related health factors, that were collected on or before the date of the Encounter. The data comes from the [place] facility where the Encounter took place. Date/Time Smoking Status/Tobacco Use Comment F acility May 24, 2024 09:00 AM VA-TOBACCO QUIT 15 YRS OR MORE [facility] Apr 23, 2023 11:00 AM VA-TOBACCO FORMER USER [facility] Apr 23, 2023 11:00 AM VA-TOBACCO QUIT 5 TO < 15 YRS [facility] Mar 20, 2022 11:00 AM VA-TOBACCO FORMER USER [facility] Mar 20, 2022 11:00 AM VA-TOBACCO QUIT 5 TO < 15 YRS [facility] Nov 22, 2020 11:00 AM VA-TOBACCO FORMER USER [facility] Nov 22, 2020 11:00 AM VA-TOBACCO QUIT 15 YRS OR MORE [facility] Jan 18, 2018 03:50 PM QUIT TOBACCO >7 YEARS AGO [facility] Oct 09, 2017 10:53 AM QUIT TOBACCO >7 YEARS AGO [facility] Advance Directives: All historical and current Section Date Range: From patient's date of to the date document was created. This section includes ALL of a patient's completed or amended [place] Advance and Rescinded Directives. The entries below indicate that a directive exists for the patient, but an actual copy is not included with this document. The data comes from all [facility]. Date Advance Directives Provider Source February 19, 2017 ADVANCE DIRECTIVE DISCUSSION MICHEAL DALTON [facility] Radiology Reports: +/- 30 days of the encounter Radiology Reports For cases when an order for radiology services may have been completed prior to the date of the Encounter, the report list includes the Radiology Reports that were completed up to 30 days before dateof the Encounter. For cases when an order for radiology services may have been completed after the date of the Encounter, the report list also includes the Radiology Reports that were completed up to30 days after date of the Encounter. The data comes from all [place] treatment facilities. Date/Time Radiology Report Provider Source Aug 18, 2024 06:46 AM ANKLE,RIGHT, 3 VIE WS: ISSAC BUTLER [id number] M Exm Date: AUG 18, 2024@06:46 Req Phys: DILEEP HENNING Pat Loc: -[facility] PACT B PCP (Katy'g Loc) Img Loc: -[facility] RADIOLOGY SUITE Service: Unknown [facility], [address] [place] [address] (Case [id number] COMPLETE) ANKLE,RIGHT, 3 VIEWS (RAD Detailed) CPT:73753 Proc Modifiers : RIGHT, Stand AP, APLatMorts Reason for Study: right ankle pain Clinical History: Report Status: Verified Date Reported: AUG 18, 2024 Date Verified: AUG 18, 2024 Electronic Systems Technician E-Sig:/ES/CATHIE PINK Report: CASE #: [id number] DATE:08/18/2024 3:17 PM CLINICAL HISTORY:right ankle pain TECHNIQUE: ANKLE,RIGHT, 3 VIEWS COMPARISON: Right ankle radiograph from 05/31/2024. Redemonstration of surgical fusion of the ankle joint. No evidence of prosthesis loosening. No new lytic or blastic bony lesion is seen. Marginal osteophytic spur seen at the talonavicular joint. Calcaneal spurs noted. No soft tissue swelling around the ankle seen. Impression: Redemonstration of fusion at the ankle joint without significant interval change Dictated by Adeline Concepcion M.D. (Diagnostic Graphic Engineer). Icathie, have reviewed the images and report and concur with these findings. Primary Interpreting Staff: CATHIE PINK, RADIOLOGIST (Electronic Systems Technician) Primary Interpreting Resident: ADELINE CONCEPCION Resident Physician /CATHIE [facility] Encounter Notes: All associated encounter notes This section contains the clinical notes associated to the Encounter. Date/Time Encounter Note(s) Provider Source Aug 18, 2024 02:58 PM PRIMARY CARE NOTE: LOCAL TITLE: PRIMARY CARE PROVIDER ESTABLISHED VISIT [facility] STANDARD TITLE: PRIMARY CARE NOTE DATE OF NOTE: AUG 18, 2024@14:58 ENTRY DATE: AUG 18, 2024@14:58:43 AUTHOR: DILEEP HENNING EXP COSIGNER: URGENCY: STATUS: COMPLETED PRIMARY CARE PROVIDER ESTABLISHED VISIT ST Has ADDENDA ESTABLISHED PATIENT VDCP-GX-IOGG: REASON FOR VISIT/CHIEF COMPLAINT: - c/o right ankle pain He lost balance & landed on hisbright foot from a height . happened 10 days ago since then his chronic right ankle pain flared up. It is especially worse after walking and when he keeps it in the dependent position for more than half an hour ALLERGIES: PERCOCET, LOSARTAN, LISINOPRIL ALLERGY REVIEW: Allergy list reviewed and remains current. MEDICATION RECONCILIATION: I have reviewed the patient's medication list with the patient and/or his/her care-product manager medical device. Handwritten corrections, additions and/or deletions were made to the list. Corrected Outpatient Medication List was provided to the patient/caregiver. Active Outpatient Medications (including Supplies): Active Non-VA Medications Status 1) Non-VA ALLOPURINOL 100MG TAB 100MG BY MOUTH TWICE A ACTIVE DAY 2) Non-VA ATORVASTATIN CALCIUM 80MG TAB 40MG BY MOUTH ACTIVE EVERY EVENING 3) Non-VA CANAGLIFLOZIN 300MG TAB 300MG BY MOUTH ONCE A ACTIVE DAY 4) Non-VA CHOLECALCIF 50MCG (D3-2,000UNIT) TAB 50MCG BY ACTIVE MOUTH ONCE A DAY 5) Non-VA ENALAPRIL MALEATE 5MG TAB 5MG BY MOUTH ONCE A ACTIVE DAY 6) Non-VA FENOFIBRATE 160MG TAB 160MG BY MOUTH ONCE A ACTIVE DAY 7) Non-VA FISH OIL 1000MG (500MG DHA/EPA) CAP 1000MG BY ACTIVE MOUTH TWICE A DAY 8) Non-VA FISH OIL 1000MG (500MG DHA/EPA) CAP,ORAL BY ACTIVE MOUTH 9) Non-VA FLUOXETINE HCL 20MG CAP 40MG BY MOUTH EVERY ACTIVE MORNING 10) Non-VA FLUTICASONE PROP 50MCG 120D NASAL INHL 2 ACTIVE SPRAYS NOSTRIL(S) ONCE A DAY 11) Non-VA GLIPIZIDE 5MG TAB 2.5MG BY MOUTH EVERY DAIY ACTIVE 12) Non-VA LORATADINE 10MG TAB 10MG BY MOUTH ONCE A DAY ACTIVE 13) Non-VA METFORMIN HCL 1000MG TAB 1000MG BY MOUTH TWICE ACTIVE A DAY WITH MEALS 14) Non-VA METOPROLOL SUCCINATE 100MG SA TAB 50MG BY ACTIVE MOUTH ONCE A DAY Most recent labs : LDL : 90 mg/dL L (05/24/24 09:30) HDL : 36 mg/dL L (05/24/24 09:30) TRI : 1148 mg/dL H (05/24/24 09:30) CHOLESTEROL 197 mg/dL 05/24/2024 09:30 HGA1C 6.6 H % 05/24/2024 09:30 HGA1C 6.2 H % 04/20/2023 09:22 HGA1C 7.0 H % 05/27/2022 10:01 HGA1C 7.4 H % 05/01/2021 13:04 HGA1C 7.5 H % 03/29/2020 09:19 VITAMIN D, 25-HYDROXY 21.2 L ng/mL 05/24/2024 09:30 TSH 0.621 uIU/mL 05/24/2024 09:30 PROST. SPECIFIC AG.(PB-STL) 0.422 ng/mL 05/24/2024 09:30 WBC : 4.9 10*3/uL (05/24/24 09:30) HGB 15.4 g/dL 05/24/2024 09:30 MCV :88.1 fL (05/24/24 09:30) PLT 359 10*3/uL 05/24/2024 09:30 SODIUM 135 L mEq/L 05/24/2024 09:30 POTASSIUM 3.6 mEq/L 05/24/2024 09:30 CALCIUM : 9.9 mg/dL (05/24/24 09:30) CREATININE 0.93 mg/dL 05/24/2024 09:30 GLUCOSE 234 H mg/dL 05/24/2024 09:30 SGOT : 31 U/L (05/24/24 09:30) SGPT : 21 U/L (05/24/24 09:30) ALKALINE PHOSPHATASE 67 U/L 05/24/2024 09:30 Weight : Patient Weight History - Last Four 1. 216.2 lbs. / 98.1 kg. on AUG 18, 2024@14:31:22 2. 214.6 lbs. / 97.3 kg. on MAY 24, 2024@09:44:42 3. 215.8 lbs. / 97.9 kg. on MAR 22, 2024@09:53:26 4. 219.0 lbs. / 99.3 kg. on FEBRUARY 25, 2024@13:03:32 Vitals : ----- Temp : 98 F [36.7 C] (08/18/2024 14:31) BP : 128/75 (08/18/2024 14:31) MI : 79 (08/18/2024 14:31): RR : 16 (08/18/2024 14:31) POX: 97% (08/18/2024:) Objective findings: Alert , oriented X 3 Not in acute distress Extremities- no pedal edema , good pedal pulses, both feet warm Rt ankle : slightly bigger than left ankle , no erythema midline scar anteriorly no point tenderness on palpation ASSESSMENT/PLAN: Above labs reviewed with patient Patient gives verbal permission to leave messages on voice mail # Acute over chronic Rt ankle pain : he had multiple surgeries on Rt ankle , s/p fusion . Xrays : pending advised rest ( he works at [employer]),local ice , elevation of feet Ibuprofen 600 mgs tid , icy hot advised rest for a week from work , but patient declined & requests letter only for 3 days SUMMARY STATEMENT: Plan of care has been discussed with including expected therapeutic benefits and potential side effects of prescribed medication and treatments. verbalizes understanding and is in agreement with the plan of care. Patient was instructed to keep all scheduled appointments and contact spare person for any additional problems. Medication Reconciliation Opt STL: I have reviewed the patient's medication list (including active outpatient prescriptions dispensed from this [facility] (local) and dispensed from another [place] or [facility] facility (remote) as well as inpatient orders (local pending and active), local clinic medications, locally documented non-VA medications, and local prescriptions that have or been discontinued in the past 90 days.) with the patient and/or his/her care-product manager medical device. Handwritten corrections, additions and/or deletions were made to the list, as appropriate. Corrected Outpatient Medication List was provided to the patient/caregiver. RTc :10/2024 /mark/ DILEEP HENNING MD Staff Physician Signed: 08/18/2024 15:38 08/18/2024 ADDENDUM STATUS: COMPLETED Right ankle xray 08/18/2024: COMPARISON: Right ankle radiograph from 05/31/2024. Redemonstration of surgical fusion of the ankle joint. No evidence of prosthesis loosening. No new lytic or blastic bony lesion is seen. Marginal osteophytic spur seen at the talonavicular joint. Calcaneal spurs noted. No soft tissue swelling around the ankle seen. Impression: Redemonstration of fusion at the ankle joint without significant interval change discussed with patient /mark/ DILEEP HENNING MD Staff Physician Signed: 08/18/2024 17:57 DILEEP HENNING [facility] Aug 18, 2024 02:34 PM NURSING NOTE: LOCAL TITLE: V15 PACT FACE TO FACE NOTE STL STANDARD TITLE: NURSING NOTE DATE OF NOTE: AUG 18, 2024@14:34 ENTRY DATE: AUG 18, 2024@14:34:19 AUTHOR: NICKI REYES COSIGNER: URGENCY: STATUS: COMPLETED V15 PACT FACE TO FACE NOTE STL Has ADDENDA Provider Visit: Patient Identifiers : Full Name Date of Reason for visit: Established Follow-Up Mode of Arrival: Ambulatory Allergy Review: PERCOCET, LOSARTAN, LISINOPRIL Allergy list reviewed and remains current. Recent Vital Signs: Temperature: 98 F [36.7 C] (08/18/2024 14:31) Pulse: 79 (08/18/2024 14:31) Respiration: 16 (08/18/2024 14:31) B/P: 128/75 (08/18/2024 14:31) Pain: 4 (08/18/2024 14:31) Wt: 216.2 lb [98.07 kg] (08/18/2024 14:31) Ht: 71 in [180.3 cm] (08/18/2024 14:31) BMI: 30.2 POX: 97% (08/18/2024 14:31) Blood sugar glucometer reading: NA PERSONAL HEALTH INVENTORY Notes: No data available for PHI note titles PERSONAL HEALTH INVENTORY - MAP: Personal Health Inventory (Short) 10/05/2019 Phis What Do You Live For I WOULD REALLY LIKE TO GET A HOLD OF MY DIABETES MANAGEMENT. Php 05/24/2024 Personal Health Plan [place], [place], Purpose (MAP) family What matters most to you in your life right now? --- 's Response: FAMILY WHOLE HEALTH SHARED GOALS: PERSONAL HEALTH PLAN - SHARED GOALS: 05/24/2024 Php Shared Goals management of diabetes 10/05/2019 Php Shared Goals Better DM managment so can be able to do better in life SHARED GOALS == TO STAY HEALTHY Would you like to discuss any personal problem, family problem, alcohol use, drug use, or a mental or emotional illness? No Contact provided Primary Care phone number and encouraged to call if any questions or concerns. Review that after hours nurse line ext.[phone] and emergency room are available 20/04 for patient use. Contact verbalized good understanding. Influenza Immunization - L,N,P,PH,U: Influenza, Trivalent, Preservative Free (Fluarix-Syringe) Administered: INFLUENZA, SPLIT VIRUS, TRIVALENT, PF Date Administered: Aug 18, 2024 14:30 Sales Leader: [employer] Lot: [id number] Exp Date: Mar 27, 2025 [facility]: [phone] Admin Route/Site: INTRAMUSCULAR/LEFT DELTOID Dosage: 0.5mL Vaccine Information Statement(s): INFLUENZA(FLU) VACC(INACTIVATED OR RECOMBINANT)VIS May 03, 2021 ([place]ICAN) Order By: Policy Administered By: Nicki Reyes The Influenza Vaccine Information Statement (VIS) was reviewed with the patient/caregiver which lists the benefits and risks of the vaccine and the risks of not receiving the Influenza vaccine. The patient/caregiver denied any prior severe reaction to this vaccine or its components or a severe allergic reaction, such as anaphylaxis, to any vaccine or any injectable therapy. The patient/caregiver gave verbal consent to receive the vaccine. COVID-19 Immunization - L,N,P,PH,U: Refused Pfizer Monovalent COVID-19 vaccine Immunization: COVID-19 (PFIZER), MRNA, LNP-S, PF, YOSELIN-SUCROSE, 30 MCG/0.3 ML (AGES 12+ YEARS) Refusal Reason: PATIENT DECISION Patient refuses all immunization(s) in the COVID-19 group Date Documented: 08/18/24 14:39 /mark/ NICKI REYES PIT RECORDER LICENSED PRACTIAL NURSE Signed: 08/18/2024 14:40 08/18/2024 ADDENDUM STATUS: COMPLETED RNCM typed letter for pt- excuse from work per PCP until 08/23/2024 /mark/ CLIFF MONTANO MSM, RN,[facility] REGISTERED NURSE Signed: 08/18/2024 15:24 NICKI REYES [facility]
--- OUTSIDE RECORDS SUMMARY | 2025-04-01 21:04 | XMS_ITS | Encounter Summary ---
Author Name [facility] ([place]) Organization [facility] of [facility] ([place]) Address [address] [place] [address] Care Team Providers Care Planning Specialist Name Role Phone DILEEP HENNING Primary Care Provider Unavailabl e Selected Encounter This section includes the information on record at [place] for the Encounter. Date/Time Encounter Type Encounter Description Reason Provider Source May 24, 2024 09:00 AM OFFICE O/P EST MOD 30 MIN PRIMARY CARE/MEDICINE ICD-10-CM I10 Essential (primary) hypertension DILEEP HENNING Stuart Encounter Template Text not used by [place] Assessments - Encounter Diagnoses This section includes the primary and secondary diagnoses documented for the Encounter. Date/Time Primary/Secondary Diagnosis Diagnosis Name Provider Source May 24, 2024 04:24 PM PRIMARY Essential (primary) hypertension DILEEP HENNING [facility] May 24, 2024 04:24 PM SECONDARY Encounter for immunization WANDA PUENTE [facility] May 24, 2024 04:24 PM SECONDARY Gout, unspecified DILEEP HENNING [facility] May 24, 2024 04:24 PM SECONDARY Hyperlipidemia, unspecified DILEEP HENNING [facility] May 24, 2024 04:24 PM SECONDARY Obstructive sleep apnea (adult) (pediatric) DILEEP HENNING [facility] May 24, 2024 04:24 PM SECONDARY Palmar fascial fibromatosis [Dupuytren] DILEEP HENNING [facility] May 24, 2024 04:24 PM SECONDARY Type 2 diabetes mellitus with unspecified complications DILEEP HENNING [facility] Plan of Treatment: Future Appointments (+ 6 months) and Future Tests (+/- 45 days) The Plan of Treatment section includes future care activities for the patient from all [place] [facility] This section includes future appointments and future orders which are active, pending or scheduled. Future Appointments This section includes appointments that were scheduled to occur 6 months from the date of the Encounter, up to a maximum of 20 appointments. The data comes from all [facility]. Appointment Date/Time Appointment Type Appointme nt Facility Name May 25, 2024 01:30 PM AMBULATORY - MEDICINE [facility] Jul 08, 2024 10:00 AM AMBULATORY - MEDICINE [facility] Aug 18, 2024 02:30 PM AMBULATORY MEDICINE [facility] Nov 17, 2024 10:00 AM AMBULATORY - SURGERY [facility] Nov 23, 2024 09:00 AM AMBULATORY - MEDICINE [facility] Active, Pending, and Scheduled Orders This section includes a listing of several types of active, pending, and scheduled orders, including clinic medications orders, diagnostic test orders, procedure orders and consult orders; where the start date of the order is 45 days before the date of the Encounter or 45 days after the date of theEncounter. The data comes from all [facility]. Test Date/Time Test Type Test Details Facility Name May 25, 2024 12:00 AM Laboratory - Chemi stry Order LIPID PANEL (STL) GREEN LI/HEP BLD/PLAS PLASMA SP [facility] Lab Results: +/- 30 days of the encounter This section includes the Chemistry and Hematology Lab Results on record with [place] for the patient. Radiology Reports and Pathology Reports are provided separately, in subsequent sections. Lab Results This section contains the Chemistry/Hematology Results that were resulted 30 days before or 30 daysafter the date of the Encounter. Date/Time Source Result Type Result - Unit Interpretation Reference Range Specimen Type Comment May 24, 2024 09:30 AM [facility] MAGNESIUM PLASMA Specimen Type: PLASMA Comment: LDL calculation invalid when Triglyceride exceeds 250 mg/dl No hemolysis noted. Ordering Provider: DILEEP HENNING Report Released Date/Time: May 24, 2024 10:03 AM Reporting Lab: [facility] [address] [facility] [place] [address] Performing Lab: [facility] [address] [place] [phone] MAGNESIUM 1.9 mg/dL 1.6-2.6 May 24, 2024 09:30 AM [facility] URIC ACID PLASMA Specimen Type: PLASM A Comment: LDL calculation invalid when Triglyceride exceeds 250 mg/dl No hemolysis noted. Ordering Provider: DILEEP HENNING Report Released Date/Time: May 24, 2024 10:11 AM Reporting Lab: [address] [address] Performing Lab: [address] [address] URIC ACID 4.9 mg/dL 3.5-7.2 May 24, 2024 09:30 AM [facility] HGA1C BLOOD Specimen Type: BLOOD No comment entered. Ordering Provider: DILEEP HENNING Report Released Date/Time: May 24, 2024 09:16 AM Reporting Lab: [address] [address] Performing Lab: [address] [address] HGA1C 6.6 H 4.0-6.0 May 24, 2024 09:30 AM [facility] PROST. SPECIFIC AG.(PB-STL) SERUM Specimen Ty pe: SERUM Comment: The listed sex of this patient may not be a typical indication for this test. Therefore, reference ranges or interpretive criteria listed may not be valid. Clinical correlation suggested. Ordering Provider: DILEEP HENNING Report Released Date/Time: May 24, 2024 09:16 AM Reporting Lab: [address] [address] Performing Lab: [address] [address] PROST. SPECIFIC AG.(PB-STL) 0.422 ng/mL 0-4 May 24, 2024 09:30 AM [facility] MICRAL/CREAT PROFILE (STL) URINE Specimen Typ e: URINE No comment entered. Ordering Provider: DILEEP HENNING Report Released Date/Time: May 24, 2024 09:16 AM Reporting Lab: [facility] [address] [place] [phone] Performing Lab: [address] [address] URINE ALBUMIN (PB-STL) 25.7 mg/L uACR (STL) 42 mg/g H 0-29 CREATININE URINE/OTHERS 61.8 mg/dL L 63-16 6 May 24, 2024 09:30 AM [facility] LIPID PANEL (STL) PLASMA Specimen Type: PLASM A Comment: LDL calculation invalid when Triglyceride exceeds 250 mg/dl No hemolysis noted. Ordering Provider: DILEEP HENNING Report Released Date/Time: May 24, 2024 09:16 AM Reporting Lab: [address] [phone] Performing Lab: [address] [address] CHOLESTEROL 197 mg/dL 0-200 TRIGLYCERIDE 1148 mg/dL H 0-150 DIRECT LDL 90 mg/dL L >100 CALCULATED LDL comment mg/dL HDL(New) 36 mg/dL L >40 May 24, 2024 09:30 AM [facility] TSH (MA-PB) SERUM Specimen Type: SERUM Comment: The listed sex of this patient may not be a typical indication for this test. Therefore, reference ranges or interpretive criteria listed may not be valid. Clinical correlation suggested. Ordering Provider: DILEEP HENNING Report Released Date/Time: May 24, 2024 09:16 AM Reporting Lab: [facility] [address] [place] [phone] Performing Lab: [address] [address] TSH 0.621 u[IU]/mL 0.47-5 May 24, 2024 09:30 AM [facility] COMPREHENSIVE METABOLIC PANEL PLASMA Specimen Type: PLASMA Comment: LDL calculation invalid when Triglyceride exceeds 250 mg/dl No hemolysis noted. Ordering Provider: DILEEP HENNING Report Released Date/Time: May 24, 2024 09:16 AM Reporting Lab: [facility] [address] [facility] [address] Performing Lab: [address] [address] CREATININE 0.93 mg/dL 0.7-1.3 UREA NITROGEN 15.3 mg/dL 9.0-25.0 GLUCOSE 234 mg/dL H 72-99 SODIUM 135 meq/L L 136-145 POTASSIUM 3.6 meq/L 3.5-5 CHLORIDE 105 meq/L 98-107 CARBON DIOXIDE 17 meq/L L 22-31 CALCIUM 9.9 mg/dL 8.4-10.4 PROTEIN 8.5 g/dL 6-8.6 ALBUMIN 4.3 g/dL 3.4-5 TOTAL BILIRUBIN 0.5 mg/dL 0.2-1.2 ALKALINE PHOSPHATASE 67 U/L 40-150 AST/SGOT 31 U/L 5-34 ALT/SGPT 21 U/L 8-40 EGFR (CKD-EPI 2020) 93.4 >60 May 24, 2024 09:30 AM [facility] VITAMIN D, 25-HYDROXY SERUM Specimen Type: SE RUM Comment: The listed sex of this patient may not be a typical indication for this test. Therefore, reference ranges or interpretive criteria listed may not be valid. Clinical correlation suggested. Ordering Provider: DILEEP HENNING Report Released Date/Time: May 24, 2024 09:16 AM Reporting Lab: [address] [address] Performing Lab: [address] [address] VITAMIN D, 25-HYDROXY 21.2 ng/mL L 30-96 May 24, 2024 09:30 AM [facility] URINALYSIS W/ CX REFLEX (STL-PB) URINE Specim en Type: URINE Comment: High concentrations of glucose and protein affect specific gravity. Therefore, specific gravity is corrected using the concentrations of glucose and protein obtained from test strip measurement. Very high concentrations of glucose (>1000 mg/dL) or protein (>600 mg/dL) in the urine may affect the reliability of the specific gravity results. Clinical correlation is suggested. Ordering Provider: DILEEP HENNING Report Released Date/Time: May 24, 2024 09:16 AM Reporting Lab: [address] [address] Performing Lab: [address] [address] URINE COLOR Light-Yellow Yellow U.BILIRUBIN Negative mg/dL Negative U.PH 6.0 5.0-8.0 APPEARANCE Clear Clear U.NITRITE Negative mg/dL Negative URN.GLUCOSE > mg/dL H Negative URN.PROTEIN Negative mg/dL Negative-20 URN.UROBILINOGEN Normal mg/dL Normal URN.BLOOD Negative mg/dL Negative-Trace URN.KETONES Negative mg/dL Negative-Trac e URN.LEUK.EST. Negative mg/dL Negative-Tr eve URN.SPECIFIC GRAVITY 1.040 H 1.005-1.029 May 24, 2024 09:30 AM [facility] CBC BLOOD Specimen Type: BLOOD No comment entered. Ordering Provider: DILEEP HENNING Report Released Date/Time: May 24, 2024 09:16 AM Reporting Lab: [address] [address] Performing Lab: [address] [address] WBC 4.9 10*3/uL 3.6-11.2 RBC 5.14 10*6/uL 4.10-5.70 HGB 15.4 g/dL 13.1-16.8 HCT 45.3 38.2-48.4 MCV 88.1 fL 80.0-100.0 MCH 30.0 pg 27.0-34.0 MCHC 34.0 g/dL 33.0-36.0 PLT 359 10*3/uL 150-400 MPV 10.4 fL 7.5-11.2 RDW 12.4 11.8-15.1 LYMPHOCYTES, AUTO % 26 MONOCYTES, AUTO % 5 NEUTROPHILS, AUTO % 64 EOSINOPHILS, AUTO % 3 BASOPHILS, AUTO % 2 LYMPHOCYTES, ABSOLUTE 1.30 10*3/uL 0.77- 4.50 MONOCYTES, ABSOLUTE 0.26 10*3/uL 0.19-0. 80 NEUTROPHILS, ABSOLUTE 3.13 10*3/uL 2.10- 8.00 EOSINOPHILS, ABSOLUTE 0.16 10*3/uL 0.00- 0.60 BASOPHILS, ABSOLUTE 0.08 10*3/uL 0.00-0. 20 Vital Signs: All taken on the encounter date This section contains inpatient and outpatient Vital Signs collected on the date of the Encounter. Date/Time Temperature Pulse Blood Pressure Respiratory Rate SP02 Pain Height Weight Body Mass Index Source May 24, 2024 09:44 AM 97.5 76 134/88 16 98 3 214.6 30 [facility] Immunizations: All administered on the encounter date This section contains immunizations associated to the Encounter. Immunization Series Date Issued Administered By Site Reaction Lot Number CVX Code Drug Threader Operator Comment(s) Source TDAP May 24, 2024 WANDA PUENTE RIGHT DELTO ID [id number] 115 [facility] D AT [facility] Social History: Smoking Status (Most current) and [...] Date/Time Current Smoking Status Comment Facil ity May 24, 2024 09:00 AM [place]-TOBACCO QUIT 15 YRS OR MORE [facility] Tobacco Use History This section includes a history of the smoking, or tobacco-related health factors, that were collected on or before the date of the Encounter. The data comes from the [place] facility where the Encounter took place. Date/Time Smoking Status/Tobacco Use Comment F acility May 24, 2024 09:00 AM [place]-TOBACCO QUIT 15 YRS OR MORE [facility] Apr 23, 2023 11:00 AM VA-TOBACCO FORMER USER [facility] Apr 23, 2023 11:00 AM VA-TOBACCO QUIT 5 TO < 15 YRS [facility] Mar 20, 2022 11:00 AM VA-TOBACCO FORMER USER [facility] Mar 20, 2022 11:00 AM VA-TOBACCO QUIT 5 TO < 15 YRS [facility] Nov 22, 2020 11:00 AM VA-TOBACCO FORMER USER [facility] Nov 22, 2020 11:00 AM [place]-TOBACCO QUIT 15 YRS OR MORE [facility] Jan 18, 2018 03:50 PM QUIT TOBACCO >7 YEARS AGO [facility] Oct 09, 2017 10:53 AM QUIT TOBACCO >7 YEARS AGO [facility] Advance Directives: All historical and current Section [...] 19, 2017 ADVANCE DIRECTIVE DISCUSSION MICHEAL DALTON [facility] Radiology Reports: +/- 30 days of the [...] the Encounter. The data comes from all [place] treatment facilities. Date/Time Radiology Report Provider Source May 31, 2024 08:36 AM ANKLE,RIGHT, 3 VIE WS: GRANT BUTLER [id number] -1960 M Ex Date: MAY 31, 2024@08:36 Req Phys: DILEEP HENNING Pat [facility] P[facility] (Req'g Loc) Img Loc: -MAIN RADIOLOGY SUITE Service: [facility], [address] [address] (Case [id number] COMPLETE) ANKLE,RIGHT, 3 VIEWS (RAD Detailed) CPT:18121 Proc Modifiers : RIGHT, Stand AP, APLatMorts Reason for Study: ANKLE PAIN & SWELLING Clinical History: MULTIPLE SURGEIES WITH FUSIOIN IN 2020 Report Status: Verified Date Reported: MAY 31, 2024 Date Verified: MAY 31, 2024 Special Crimes Investigator E-Sig:/ES/ANABELL DAVIS MD Report: Case #[id number]. Right ankle examination. COMPARISON: 02/11/2022. Finding: Three views of the right ankle examination shows surgical fusion of the ankle joint. No evidence of prosthesis loosening. No new lytic or blastic bony lesion is seen. Marginal osteophytic spur seen at the talonavicular joint. Calcaneal spurs noted. Mild soft tissue swelling around the ankle seen. No radiopaque foreign body. Impression: Soft tissue swelling. Surgical fusion at the ankle joint shows no significant interval change. No radiopaque foreign body. Primary Interpreting Staff: ANABELL DAVIS MD, Staff Physician - Radiologist (Special Crimes Investigator) /ANABELL SALES [facility] Encounter Notes: All associated encounter notes This section contains the clinical notes associated to the Encounter. Date/Time Encounter Note(s) Provider Source May 25, 2024 03:30 PM PHYSICIAN LETTERS: LOCAL TITLE: TEST RESULT GENERAL LETTER STL STANDARD TITLE: PHYSICIAN LETTERS DATE OF NOTE: MAY 25, 2024@15:30 ENTRY DATE: MAY 25, 2024@15:30:30 AUTHOR: DILEEP HENNING EXP COSIGNER: URGENCY: STATUS: COMPLETED [facility] [address] [place] [address] MAY 25, 2024 GRANT BUTLER [address] [place] [address] DR NENO COLLINS [address] [place] [address] Dear Grant Butler, I would like to update you on your recent test results. LIPID PROFILE - High cholesterol and triglycerides (lipids) are risk factors for heart disease. Your cholesterol should fall between 140 and 200, and your triglycerides levels should be less than or equal to 150. HDL is the good cholesterol and should ideally be greater than 40. LDL is the bad cholesterol and optimal levels should be less than 100 (near optimal is between 100 and 129). TRIGLYCERIDE 1148 H mg/dL 05/24/2024 09:30 CHOLESTEROL 197 mg/dL 05/24/2024 09:30 HDL(New) 36 L mg/dL 05/24/2024 09:30 DIRECT LDL 90 L mg/dL 05/24/2024 09:30 These results are abnormal. Triglycerides are very high. Please have a repeat cholesterol test drawn after fasting for 10 hours. This can be done at [facility] or through [facility]. Continue atorvastatin, fenofibrate and fish oil capsules. Avoid sweets and sweetened drinks HEMOGLOBIN A1C - Gives us information about your diabetes (sugar or glucose) control over the past 3 months. HGA1C 6.6 H % 05/24/2024 09:30 These readings are within normal limits. CBC - A complete blood count (CBC) gives important information about the kinds and numbers of cells in the blood, especially red blood cells, white blood cells, and platelets. HGB 15.4 g/dL 05/24/2024 09:30 HEMATOCRIT 45.3 % (05/24/24 09:30) PLT 359 10*3/uL 05/24/2024 09:30 WHITE BLOOD COUNT 4.9 10*3/uL (05/24/24 09:30) These readings are within normal limits. CHEM 7 - This is important information about the current status of your kidneys, liver, and electrolyte and acid/base balance as well as of your blood sugar and blood proteins. SODIUM 135 L mEq/L 05/24/2024 09:30 POTASSIUM 3.6 mEq/L 05/24/2024 09:30 CHLORIDE 105 mEq/L 05/24/2024 09:30 UREA NITROGEN 15.3 mg/dL 05/24/2024 09:30 CREATININE 0.93 mg/dL 05/24/2024 09:30 CALCIUM 9.9 mg/dL 05/24/2024 09:30 CARBON DIOXIDE 17 L mEq/L 05/24/2024 09:30 GLUCOSE 234 H mg/dL 05/24/2024 09:30 EGFR (CKD-EPI 2020) 93.4 05/24/2024 09:30 Glucose readings are high. LIVER FUNCTION PANEL - These are tests for liver function: PROTEIN 8.5 g/dL 05/24/2024 09:30 ALBUMIN 4.3 g/dL 05/24/2024 09:30 TOTAL BILIRUBIN 0.5 mg/dL 05/24/2024 09:30 ALKALINE PHOSPHATASE 67 U/L 05/24/2024 09:30 AST/SGOT 31 U/L 05/24/2024 09:30 ALT/SGPT 21 U/L 05/24/2024 09:30 These readings are within normal limits. PSA - Prostate-specific antigen is a protein produced by cells of the prostate gland. The PSA test measures the level of PSA in the blood. PSA PROST. SPECIFIC AG.(PB-STL) 0.422 ng/mL 05/24/2024 09:30 These readings are within normal limits. TSH - Thyroid-stimulating hormone (also known as TSH or thyrotropin) is a peptide hormone synthesized and secreted by thyrotrope cells in the anterior pituitary gland, which regulates the endocrine function of the thyroid gland. TSH TSH 0.621 uIU/mL 05/24/2024 09:30 These readings are within normal limits. VITAMIN D - Helps promote the proper utilization of calcium and phosphorus, thereby producing proper bone maintenance. VITAMIN D, 25-HYDROXY 21.2 L ng/mL 05/24/2024 09:30 These readings are low. Recommend taking cholecalciferol 2000 units daily URINALYSIS - A urinalysis (or UA) is an array of tests performed on urine and one of the most common methods of medical diagnosis. URINALYSIS URINE COLOR Light-Yellow 05/24/2024 09:30 APPEARANCE Clear 05/24/2024 09:30 U.PH 6.0 05/24/2024 09:30 U.BILIRUBIN Negative mg/dL 05/24/2024 09:30 U.NITRITE Negative mg/dL 05/24/2024 09:30 These readings are within normal limits. PLAN If you have any questions please call your watch caser. I look forward to seeing you at your next clinic appointment. Thank you for choosing the [facility] for your healthcare. FUTURE APPOINTMENTS: 11/23/2024 09:00 [facility] PACT B PCP 05/23/2025 11:00 [facility] P[facility] Sincerely, DILEEP HENNING MD Staff Physician GRANT BUTLER RAMA D [facility] May 24, 2024 10:06 AM PRIMARY CARE NOTE: LOCAL TITLE: PRIMARY CARE PROVIDER ESTABLISHED VISIT ST STANDARD TITLE: PRIMARY CARE NOTE DATE OF NOTE: MAY 24, 2024@10:06 ENTRY DATE: MAY 24, 2024@10:06:20 AUTHOR: DILEEP HENNING EXP COSIGNER: URGENCY: STATUS: COMPLETED ESTABLISHED PATIENT [id number]: REASON FOR VISIT/CHIEF COMPLAINT: - - Chief Complaint: Follow-up on diabetes and hypertriglyceridemia c/p cramps in bila lower extremities , worse in RLE He is compliant with all his medications He follows multiple private physicians including [facility] PCP :[facility] :[facility] -No chest pain/dyspnea on exertion/lightheadedness -Normal appetite, no blood in stool Significant medical history: Type 2 diabetes mellitus Hypertension Hyperlipidemia (hypertriglyceridemia) Chronic right ankle pain with multiple surgeries, s/p fusion Left fifth metatarsal fracture 01/2022, healed now Chronic low back pain Gout Bilateral Dupuytren's contractures s/p surgery on Left s/p xiaflex inj & manipulation 01/2024 of Rt ring finger Bilateral hearing loss-uses hearing aids Chronic Tinnitus Sleep apnea Mood disorder Past surgical history: Multiple surgeries on right ankle... In 1994 and 1995 while in service Right ankle fusion in November/2020 Colonoscopy spring: Normal as per patient, due again in 10 years SH : ----- Quit tobacco in 2013 Quit alcohol in 2013 No recreational drug use Occupation: Works in [employer] ALLERGIES: PERCOCET, LOSARTAN, LISINOPRIL ALLERGY REVIEW: Allergy list reviewed and remains current. MEDICATION RECONCILIATION: I have reviewed the patient's medication list with the patient and/or his/her care-finance assistant. Handwritten corrections, additions and/or deletions were made to the list. Corrected Outpatient Medication List was provided to the patient/caregiver. Active Outpatient Medications (including Supplies): Active Outpatient Medications Status 1) ACETAMINOPHEN 500MG TAB TAKE ONE TABLET BY MOUTH FOUR ACTIVE TIMES A DAY NEEDED CAUTION: DO NOT EXCEED 4000MG PER DAY ACETAMINOPHEN (APAP) FROM ALL MEDS. Active Non-VA Medications Status 1) Non-VA ALLOPURINOL [...] (500MG DHA/EPA) CAP 1000MG BY ACTIVE MOUTH ONCE A DAY 8) Non-VA FISH OIL 1000MG [...] 50MG BY ACTIVE MOUTH ONCE A DAY 15 Total Medications Most recent labs : LDL : 91 HDL : 46 mg/dL (04/20/23 09:22) TRI : 132 mg/dL (04/20/23 09:22) CHOLESTEROL 163 mg/dL 04/20/2023 09:22 HGA1C 6.2 H % 04/20/2023 09:22 HGA1C 7.0 H % 05/27/2022 10:01 HGA1C 7.4 H % 05/01/2021 13:04 HGA1C 7.5 H % 03/29/2020 09:19 HGA1C 7.8 H % 10/05/2019 12:36 VITAMIN D, 25-HYDROXY 26.6 L ng/mL 04/20/2023 09:22 TSH 0.634 uIU/mL 04/20/2023 09:22 PROST. SPECIFIC AG.(PB-STL) 0.324 ng/mL 04/20/2023 09:22 WBC : 4.6 10*3/uL (04/20/23 09:22) HGB 14.5 g/dL 04/20/2023 09:22 MCV :89.5 fL (04/20/23 09:22) PLT 306 10*3/uL 04/20/2023 09:22 SODIUM 139 mEq/L 04/20/2023 09:22 POTASSIUM 3.8 mEq/L 04/20/2023 09:22 CALCIUM : 9.8 mg/dL (04/20/23 09:22) CREATININE 0.95 mg/dL 04/20/2023 09:22 GLUCOSE 116 H mg/dL 04/20/2023 09:22 SGOT : 17 U/L (04/20/23 09:22) SGPT : 21 U/L (04/20/23 09:22) ALKALINE PHOSPHATASE 52 U/L 04/20/2023 09:22 Weight : Patient Weight History - Last Four 1. 214.6 lbs. / 97.3 kg. on MAY 24, 2024@09:44:42 2. 215.8 lbs. / 97.9 kg. on MAR 22, 2024@09:53:26 3. 219.0 lbs. / 99.3 kg. on FEBRUARY 25, 2024@13:03:32 4. 218.3 lbs. / 99.0 kg. on FEBRUARY 23, 2024@10:54:04 Vitals : ----- Temp : 97.5 F [36.4 C] (05/24/2024 09:44) BP : 134/88 (05/24/2024 09:44) ID : [id number] (05/24/2024 09:44): RR : 16 (05/24/2024 09:44) POX: 98% (05/24/2024 09:44) Objective findings: Alert , oriented X 3 Not in acute distress HEENT - moist mucous membranes NECK - supple , no adenopathy, no bruits Heart - s1s2, rrr, no murmurs Chest - CTA regina with no distress Abdomen - soft, nontender, no organomegaly Extremities- no pedal edema , good pedal pulses, both feet warm fused mildly edematous Rt ankle ASSESSMENT/PLAN: --Above labs reviewed with patient Patient gives verbal permission to leave messages on voice mail # Type 2 diabetes mellitus: Well controlled He is on Metformin 1000 mg twice daily, Canagliflozin 300 mg daily, Glipizide 2.5 mgs daily # Hypertension: Blood pressure well controlled Continue Enalapril 5 mg, Metoprolol succinate 50 mg once daily # Hyperlipidemia::LDL at goal , He is on Atorvastatin 40 mgs daily .He is also on Fenofibrate and Fish oil for high triglycerides, prescribed by private PCP Triglycerides improved # Gout: Recent gout falre in Rt knee 2 weeks ago , continue Allopurinol 100 mg twice daily; check Uric acid # Right ankle pain with multiple surgeries: he is seeing private Ortho He has both service connection and workman comp for right ankle pain Currently not using any anti-inflammatory medications # Sleep apnea: Continue to use a CPAP machine # Mood disorder : Stable on Fluoxetine 40 mg # Allergic rhinitis: Continue Flonase spray, Loratadine . Symptoms stable # Vitamin d def : advised choolecalcifetol 2000 units daily # RT janette contracture :s/p xiaflex inj & manipulation 01/2024 not an active issue now # Cramps : discussed streching daily, if cramps are bad , stop atorvostatin for 4-5 days & restart gradually every other day SUMMARY STATEMENT: Plan of care has been discussed with including expected therapeutic benefits and potential side effects of prescribed medication and treatments. [place] verbalizes understanding and is in agreement with the plan of care. Patient was instructed to keep all scheduled appointments and contact curber for any additional problems. Medication Reconciliation Opt STL: I have reviewed the patient's medication list (including active outpatient prescriptions dispensed from this [place] (local) and dispensed from another [place] or DoD facility (remote) as well as inpatient orders (local pending and active), local clinic medications, locally documented non-VA medications, and local prescriptions that have or been discontinued in the past 90 days.) with the patient and/or his/her care-finance assistant. Handwritten corrections, additions and/or deletions were made to the list, as appropriate. Corrected Outpatient Medication List was provided to the patient/caregiver. RTC :10/2024 /mark/ DILEEP HENNING MD Staff Physician Signed: 05/24/2024 16:24 DILEEP HENNING [facility] May 24, 2024 09:45 AM NURSING NOTE: LOCAL TITLE: V15 PACT FACE TO FACE NOTE STL STANDARD TITLE: NURSING NOTE DATE OF NOTE: MAY 24, 2024@09:45 ENTRY DATE: MAY 24, 2024@09:45:50 AUTHOR: CLIFF PUENTE EXP COSIGNER: URGENCY: STATUS: COMPLETED V15 PACT FACE TO FACE NOTE STL Has ADDENDA Provider Visit: Patient Identifiers : Full Name Date of Telephone Number Full Address Reason for visit: Established Follow-Up pt here for pain in right leg - groin Mode of Arrival: Ambulatory Allergy Review: PERCOCET, LOSARTAN, LISINOPRIL Allergy list reviewed and remains current. Recent Vital Signs: Temperature: 97.5 F [36.4 C] (05/24/2024 09:44) Pulse: 76 (05/24/2024 09:44) Respiration: 16 (05/24/2024 09:44) B/P: 134/88 (05/24/2024 09:44) Pain: 3 (05/24/2024 09:44) Wt: 214.6 lb [97.34 kg] (05/24/2024 09:44) Ht: 71 in [180.3 cm] (02/25/2024 13:03) BMI: 30.0 POX: 98% (05/24/2024 09:44) PERSONAL HEALTH INVENTORY Notes: No data available for PHI note titles PERSONAL HEALTH INVENTORY - MAP: Personal Health Inventory (Short) 10/05/2019 Phis What Do You Live For I WOULD REALLY LIKE TO GET A HOLD OF MY DIABETES MANAGEMENT. What matters most to you in your life right now? [place] Response: family WHOLE HEALTH SHARED GOALS: PERSONAL HEALTH PLAN - SHARED GOALS: Php 10/05/2019 Php Shared Goals Better DM managment so can be able to do better in life SHARED GOALS management of diabetes Would you like to discuss any personal problem, family problem, alcohol use, drug use, or a mental or emotional illness? No Contact provided Primary Care phone number and encouraged to call if any questions or concerns. Review that after hours nurse line [phone] and emergency room are available 20/04 for patient use. Contact verbalized good understanding. Alcohol Use Screen (AUDIT-C): Alcohol Screen: SCREEN FOR ALCOHOL (AUDIT-C) An alcohol screening test (AUDIT-C) was negative (score=2). 1. How often did you have a drink containing alcohol in the past year? Consider a drink to be a 12 ounce can or bottle of regular beer, 8 ounces of malt liquor, a 5 ounce glass of table wine, or a 1.5 ounce shot of liquor (like scotch, gin, or vodka). Monthly or less 2. How many drinks containing alcohol did you have on a typical day when you were drinking in the past year? One or two drinks 3. How often did you have six or more drinks on one occasion in the past year? Less than monthly Depression Screening: Perform PHQ-2 A PHQ-2 screen was performed. The score was 0 which is a negative screen for depression. Over the past two weeks, how often have you been bothered by the following problems? 1. Little interest or pleasure in doing things Not at all 2. Feeling down, depressed, or hopeless Not at all Tobacco Use Screening: The patient is a former tobacco user. The patient quit fifteen or more years ago. PAVE Foot Check: A complete foot check was completed at this encounter. VISUAL INSPECTION: Includes inspection for skin breaks, deformity, erythema, trauma, pallor on elevation, dependent rubor, nail deformities, extensive callus and pitting edema. Visual exam results: Normal Comment: calluses bilateral great toes PEDAL PULSES: Includes palpation of dorsalis and posterior tibial pulses and signs/symptoms of vascular compromise like pain, pallor, parasthesia or paralysis. Present (even if diminished) SENSORY CHECK: Includes 10 gram Monofilament (Stratford-Sandra) test of sensation. Intact (Greater than or equal to 80% of sites checked) Abnormal (Less than 80% of sites checked): Intact LOW-RISK: LOW RISK INFORMATION PROVIDED: 1. Advised patient not to walk barefoot. 2. Explained the importance of daily foot checks for changes. 3. Stressed the importance of daily foot hygiene, including bathing and complete drying. The patient verbalized understanding and was offered a detailed handout on diabetic foot care. Homelessness/Food Insecurity Screen: In the past 2 months, have you been living in stable housing that you own, rent, or stay in as part of a household? Yes - Living in stable housing. Are you worried or concerned that in the next 2 months you may NOT have stable housing that you own, rent, or stay in as part of a household? No - Not worried about housing near future The [place] reports the following: Within the past 12 months, you worried whether your food would run out before you got money to buy more. Never true Within the past 12 months, the food you bought just didn't last and you didn't have money to get more. Never true Cigarette Pack Year History: The patient previously used cigarettes and quit smoking greater than or equal to 15 years ago. /mark/ CLIFF PUENTE MSM, RN,CCM REGISTERED NURSE Signed: 05/24/2024 10:03 05/24/2024 ADDENDUM STATUS: COMPLETED Td / Tdap Immunization: Administered: TDAP Date Administered: May 24, 2024 09:00 Series: (None selected) Threader Operator: SANOFI PASTEUR Lot: [id number] Exp Date: Sep 27, 2025 [facility]: [phone] Admin Route/Site: INTRAMUSCULAR/RIGHT DELTOID Dosage: 0.5mL Vaccine Information Statement(s): TDAP (TETANUS, DIPHTHERIA, PERTUSSIS) VACCINE VIS May 03, 2021 ([place]RA[place]) Order By: Dileep Henning Administered By: Cliff Puente Vaccine Information Sheet (VIS) was given to the patient/caregiver, education regarding adverse reactions was discussed, as well as barriers to learning, if any, were acknowledged. /juan PUENTE MSM, RN,CCM REGISTERED NURSE Signed: 05/24/2024 10:24 CLIFF PUENTE [facility]
--- OUTSIDE RECORDS SUMMARY | 2025-04-01 21:04 | XMS_ITS | Patient Health Record ---
Author Organization [facility] Address [address] [place], [place] [id number] Care Team Providers Care Java Portal Developer Name Role Phone KRISTIN WELLS Unavailable [phone] Juan Joe Unavailable Unavailable Reason For Referral No Information Medications Medication SIG (Take, Route, Frequency, Duration) Notes Start Date End Date Status Medrol Dosepak ORAL Medrol DosepakOr iginal MedicationMedrol Dosepak *Reorder from [employer] for eRx and Interaction Alerts* 12/15/2017 Active Plan Of Treatment No Information Insurance Providers Payer Name Payer Address Payer Phone Subscriber Number Group Number Insured Name Patient Relationship to Insured Coverage Start Date Coverage End Date [facility] [address] [place] [phone] [id number] ISSAC BUTLER Self - patient is the insured
--- OUTSIDE RECORDS SUMMARY | 2025-04-01 21:04 | XMS_ITS | Clinical Summary ---
Author Organization [facility] Address [address] [place] [address] Phone Care Team Providers Care Property Underwriter Name Role Phone Fam Hinton MD Primary Care Provider + Allergies Active Allergy Reactions Criticality Noted Date Comments Lisinopril Swelling 03/23/2018 Losartan Swelling 01/21/2018 Oxycodone-Acetaminophen Swelling 08/04/2017 Medications loratadine (CLARITIN) 10 MG Tablet Take 10 mg by mouth daily. Active metoprolol Succinate (TOPROL-XL) 50 MG TABLET SR 24 HR Take 50 mg by mouth daily. Active chlorthalidone (HYGROTON) 25 MG Tablet Take 25 mg by mouth daily. Active enalapril (VASOTEC) 5 MG Tablet Take 5 mg by mouth daily. Active metFORMIN (GLUCOPHAGE) 1000 MG Tablet Take 1,000 mg by mouth 2 times daily (with meals). Active FLUoxetine (PROZAC) 40 MG Capsule Take 40 mg by mouth daily. Active fluticasone (FLONASE) 50 MCG/ACT Suspension 1-2 Sprays by Nasal route daily. Use in each nostril as directed. Active Langston-3 Fatty Acids (OMEGA-3 FISH OIL PO) Take by mouth. Active ibuprofen (MOTRIN) 600 MG Tablet Take 1 Tab by mouth every 8 hours. 60 Tab 01/21/2018 Active diazePAM (VALIUM) 5 MG Tablet Take 1 Tab by mouth every 8 hours as needed for Muscle spasms. 20 Tab 03/23/2018 Active Fenofibrate Micronized 134 MG Capsule Take 134 mg by mouth daily. Active naproxen (NAPROSYN) 500 MG Tablet Take 1 Tab by mouth 2 times daily as needed for Moderate or more severe pain. 20 Tab 12/01/2018 Active traMADol (ULTRAM) 50 MG Tablet Take 1 Tab by mouth every 8 hours as needed for Moderate or more severe pain. 15 Tab 12/01/2018 Active Immunizations Immunization Administration Dates Next Due TDAP Vaccine 08/04/2017 Social History Tobacco Use Types Packs/Day Years Used Date Smoking Tobacco: Former Smokeless Tobacco: Never Alcohol Use Standard Drinks/Week Comments No 0 (1 standard drink = 0.6 oz pur e alcohol) Sex and Gender Information Value Date Recorded Sex Assigned at Not on file Legal Sex Male 8:54 PM CDT Gender Identity Not on file Sexual Orientation Not on file Last Filed Vital Signs Vital Sign Reading Time Taken Comments Blood Pressure 118/62 08/15/2022 11:04 AM CELEBRITY MANAGER Pulse 88 08/15/2022 8:34 AM CELEBRITY MANAGER Temperature 36.4 C (97.5 F) 08/15/2022 8:34 AM CELEBRITY MANAGER Respiratory Rate 16 08/15/2022 8:34 AM CELEBRITY MANAGER Oxygen Saturation 97% 08/15/2022 8:34 AM CELEBRITY MANAGER Inhaled Oxygen Concentration - - Weight 102.5 kg (226 lb) 08/15/2022 8:34 AM CELEBRITY MANAGER Height 180.3 cm (5' 11) 08/15/2022 8:34 AM CELEBRITY MANAGER Body Mass Index 31.52 08/15/2022 8:34 AM CELEBRITY MANAGER Plan of Treatment Health Maintenance Due Date Last Done Comments Cologuard 12/20/2007 Colonoscopy 12/20/2007 Colorectal Cancer Screening 12/20/2007 Immunochemical Fecal Occult Blood 12/20/2007 Zoster Immunization (1 of 2) 2012 Pneumococcal Immunization (50+ years) (2 of 2 - PCV) 02/21/2016 02/20/2015 SARS-COV-2 Immunization ( season) 2024 11/16/2020, 10/26/2020 Influenza Immunization (Season Ended) 2025 08/05/2021, 08/10/2019, 07/29/2018, Additional history exists Respiratory Syncytial Virus (RSV) Immunization (Adult) (1 - 1-dose 75+ series) 2037 Pneumococcal Immunization Combined Discontinued 02/20/2015 DTaP/Tdap/Td Immunization Discontinued 08/04/2017, 05/2013 Hepatitis C Virus (HCV) Screening Completed 08/04/2017 Hepatitis B Immunization Aged Out No longer eligible based on patient's age to complete this topic Human Papillomavirus (HPV) Immunization Aged Out No longer eligible based on patient's age to complete this topic Meningococcal Immunization (ACWY) Aged Out No longer eligible based on patient's age to complete this topic Rotavirus Immunization Aged Out No lo nger eligible based on patient's age to complete this topic Procedures Procedure Name Priority Date/Time Associated Diagnosis Comments HEPATITIS C ANTIBODY STAT 08/04/2017 1:08 PM CELEBRITY MANAGER from Last 3 Months or Most Recently Relevant to Health Maintenance Results * Hepatitis C Antibody (08/04/2017 1:08 PM CELEBRITY MANAGER) hepatitis C antibody 0.41 <1 S/CO 08/04/2017 11:58 PM CELEBRITY MANAGER [facility] Comment: Signal/Cutoff ratio < 0.79 is Nondetected Signal/Cutoff ratio 0.80-0.99 is Grayzone Signal/Cutoff ratio > 0.99 is Detected Supplemental assays are recommended if signal/cutoff ratio is >/=1.00. Signal/cutoff ratio result >/= 5.00 is 97% predictive of positivity for recombinant immunoblot assay (RIBA) and will be reported to the [place] Department of Public Health as required. Blood specimen (specimen) Venipuncture / Unknown 08/04/2017 1:08 PM CELEBRITY MANAGER 08/04/2017 1:13 PM CELEBRITY MANAGER us Vern Lei PAC CHEMISTRY ORDERABLES Final Result [facility] [address] [place] [address], [place] from Last 3 Months or Most Recently Relevant to Health Maintenance Insurance [facility] [address] [place] [phone] [facility]PS [facility]C [facility] GENER[facility] GENERIC [id number] GENER[facility] Care Teams Property Underwriter Relationship Specialty Start Date End Date Fam Hinton MD [address] [place] [id number] PCP - General General Surgery 08/04/17
--- OUTSIDE RECORDS SUMMARY | 2025-04-01 21:04 | XMS_ITS | Continuity of Care Document ---
Author Name [facility] Organization [facility] Care Team Providers Care Room Cleaner Name Role Phone [facility] Unavailable Unavailable Problems Combined list of problems from Department of Defense and Veterans Affairs facilities. It does not include entries that were removed or entered in error. Problem Status Onset Date Problem Type Date of Resolution Comments Source Allergic rhinitis Active Condition [facility] Ankle pain Active Condition [facility] Bilateral Dupuytren's disease of palm of hands Active Condition [facility] Closed fracture of fifth metatarsal bone of left foot Active Condition [facility] Diabetes mellitus Active Condition [facility] Exposure to potentially hazardous substance Active Condition [facility] Gout Active Condition [facility] Hearing loss Active Condition [facility] Hyperlipidemia Active Condition [facility] Hypertensive disorder Active Condition [facility] Hypertriglyceridemia Active Condition [facility] Knee pain Active Condition [facility] Low back pain Active Condition [facility] Mood disorder Active Condition [facility] NASAL ALLERGIES Active Condition [facility]esity Active Condition [facility] Osteomalacia Active Condition [facility] Shoulder pain Active Condition [facility] Sleep apnea Active Condition [facility] Tinnitus Active Condition [facility] Type 2 diabetes mellitus Active Condition [facility] Diagnosis: ICD-10-CM E11.9 Type 2 diabetes mellitus without complications Active Diagnosis [facility] Diagnosis: ICD-10-CM Z71.9 Counseling, unspecified Active Diagnosis [facility] Diagnosis: ICD-10-CM G47.33 Obstructive sleep apnea (adult) (pediatric) Active Diagnosis [facility] Diagnosis: ICD-10-CM F39 Unspecified mood [affective] disorder Active Diagnosis [facility] Diagnosis: ICD-10-CM M25.571 Pain in right ankle and joints of right foot Active Diagnosis [facility] Diagnosis: ICD-10-CM E78.5 Hyperlipidemia, unspecified Active Diagnosis [facility] Diagnosis: ICD-10-CM Z13.5 Encounter for screening for eye and ear disorders Active Diagnosis 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] Active Diagnosis [facility] Diagnosis: ICD-10-CM R52 Pain, unspecified Active Diagnosis [facility] Diagnosis: ICD-10-CM H90.3 Sensorineural hearing loss, bilateral Active Diagnosis [facility] Diagnosis: ICD-10-CM E11.8 Type 2 diabetes mellitus with unspecified complications Active Diagnosis [facility] Medications Combined list of outpatient medications from Department of Defense and Veterans Affairs facilities.Medications provided include 1) outpatient medications from the last 15 months, and 2) patient-reported medications. Medication Details Route Status Patient Instructions Prescription Expires Prescription Number Last Dispense Date Ordering Provider Order Date Order Qty Source ACETAMINOPH EN 500MG TAB TAKE ONE TABLET BY MOUTH FOUR TIMES A DAY NEEDED CAUTION: DO NOT EXCEED 4000MG PER DAY ACETAMIN OPHEN (APAP) FROM ALL MEDS. ORAL ACTIVE 08/30/2025 [id number] JUVENCIODEBORAH A D 2023 300 [facility] ACETAMINOPH EN 500MG TAB TAKE ONE TABLET BY MOUTH FOUR TIMES A DAY NEEDED CAUTION: DO NOT EXCEED 4000MG PER DAY ACETAMIN OPHEN (APAP) FROM ALL MEDS. ORAL DISCONT INUED 06/10/2024 [id number] JUVENCIO,DEBORAH A D 2023 300 [facility] ALLOPURINOL 100MG TAB TAKE ONE TABLET BY MOUTH TWICE A DAY ORAL ACTIVE JUVENCIO,DEBORAH A D 2021 [facility] ATORVASTATI N CA 80MG TAB TAKE ONE-HALF TABLET BY MOUTH EVERY EVENING ORAL ACTIVE JUVENCIO,DEBORAH A D 2023 [facility] CANAGLIFLOZ IN 300MG TAB TAKE ONE TABLET BY MOUTH ONCE A DAY ORAL ACTIVE JUVENCIO,DEBORAH A D 2021 [facility] CHOLECALCIF KATIE 50MCG (2,000UNIT) TAB TAKE ONE TABLET BY MOUTH ONCE A DAY ORAL ACTIVE JUVENCIO,DEBORAH A D 2023 [facility] CHOLECALCIF KATIE 50MCG (2,000UNIT) TAB TAKE ONE TABLET BY MOUTH ONCE A DAY ORAL ACTIVE JUVENCIO,DEBORAH A D 2022 [facility] CYCLOBENZAP RINE HCL 10MG TAB TAKE ONE TABLET BY MOUTH THREE TIMES A DAY NEEDED MAY CAUSE DROWSINE SS. DO NOT DRINK ALCOHOL WHILE TAKING THIS MEDICATI ON. ORAL 04/21/2024 [id number] Fito ROSADO ATRIJACQUIA F 2023 30 [facility] ENALAPRIL MALEATE 5MG TAB TAKE ONE TABLET BY MOUTH ONCE A DAY ORAL ACTIVE HARPAL ADORNO TTA 2013 [facility] FENOFIBRATE 160MG TAB TAKE ONE TABLET BY MOUTH ONCE A DAY ORAL ACTIVE JUVENCIO,DEBORAH A D 2021 [facility] FISH OIL 1000MG (500MG DHA/EPA) CAP,ORAL TAKE BY MOUTH Q DAILY ORAL ACTIVE JUVENCIO,DEBORAH A D 2023 [facility] FISH OIL 1000MG (500MG DHA/EPA) CAP,ORAL TAKE 1 CAPSULE BY MOUTH TWICE A DAY ORAL ACTIVE JUVENCIO,DEBORAH A D 2023 [facility] FLUOXETINE HCL 20MG CAP TAKE 2 CAPSULES BY MOUTH EVERY MORNING ORAL ACTIVE Maria Esther CARMICHAEL 2016 [facility] FLUTICASONE PROPIONATE 50MCG/SPRAY SOLN,NASAL, 16GM INSTILL 2 SPRAYS IN NOSTRIL( S) ONCE A DAY NASAL ACTIVE JUVENCIO,DEBORAH A D 2021 [facility] GLIPIZIDE 5MG TAB TAKE ONE-HALF TABLET BY MOUTH Q DAIY ORAL ACTIVE DEBORAH HENNING Jaydon D 2023 [facility] IBUPROFEN 400MG TAB TAKE ONE TABLET BY MOUTH FOUR TIMES A DAY NEEDED FOR PAIN TAKE WITH FOOD. ORAL DISCONT INUED BY PROVIDE R 06/10/2024 [id number] DEBORAH HENNING Jaydon D 2023 360 [facility] IPRATROPIUM BR 0.06% SOLN,SPRAY, NASAL USE 1 SPRAY INTO NOSTRIL( S) TWICE A DAY FOR NON-JESSE RGIC RHINITIS NASAL ACTIVE 12/01/2025 [id number] Ирина DIAZ MD [address] [facility] LIDOCAINE 5% OINT,TOP APPLY LIGHTLY TO AFFECTED AREA(S) ONCE A DAY NEEDED FOR PAIN TOPICA L 12/23/2024 [id number] 5 Maria Esther INIGUEZIMHAWA N 2024 35 [facility] LORATADINE 10MG TAB TAKE ONE TABLET BY MOUTH ONCE A DAY ORAL ACTIVE HARPAL ADORNO TTA 2013 [facility] Hugo MELOXICAM 15MG TAB TAKE ONE TABLET BY MOUTH ONCE A DAY NEEDED FOR PAIN ORAL ACTIVE 12/21/2025 [id number] 5 Maria Esther INIGUEZIMMA N 2024 30 [facility] MELOXICAM 15MG TAB TAKE ONE TABLET BY MOUTH ONCE A DAY NEEDED FOR PAIN ORAL DISCONT INUED 12/23/2024 [id number] 5 Maria Esther INIGUEZ HIDIMMA N 2024 30 [facility] METFORMIN HCL 1000MG TAB TAKE ONE TABLET BY MOUTH TWICE A DAY WITH MEALS ORAL ACTIVE HARPAL ADORNO TTA 2013 [facility] METOPROLOL SUCCINATE 100MG TAB,SA TAKE ONE-HALF TABLET BY MOUTH ONCE A DAY ORAL ACTIVE Maria Esther CARMICHAEL 2014 [facility] NAPROXEN 500MG TAB TAKE ONE TABLET BY MOUTH TWICE A DAY TAKE WITH FOOD. ORAL 04/21/2024 [id number] ASHLEEP ATRICIA F [address] [facility] Allergies, Adverse Reactions, Alerts Combined list of allergies from [facility] and [facility] facilities. It does not include entries that were removed or entered in error. Substance Category Reaction Severity Reaction type Status Date Reported Comments Source LISINOPRIL Propensity to adverse reactions to drug (finding) active 8 [facility] LOSARTAN Propensity to adverse reactions to drug (finding) Angioedema active 2 [facility] PERCOCET Propensity to adverse reactions to drug (finding) Airway constrictio n active 2 [facility] Immunizations Combined list of available immunizations from the [facility] and [facility] facilities. Immunization Series Date Given Administered By Site Reaction Lot Number CVX Code Drug Counseling Psychologist Status Comments Source INFLUENZA, SPLIT VIRUS, TRIVALENT, PF 2023 JACOB LINTON A LEFT DELTO ID [id number] 140 complet ed [facility] TDAP 2023 WANDA MONTANO RIGHT DELTO ID [id number] 115 complet ed [facility] ZOSTER RECOMBINANT 2 2022 GRANT SCHAFER RIGHT DELTO ID [id number] 187 complet ed [facility] PNEUMOCOCCAL CONJUGATE PCV20, POLYSACCHARID E [id number] CONJUGATE, ADJUVANT, PF 2022 JACOB LINTON A RIGHT DELTO ID [id number] 216 complet ed [facility] ZOSTER RECOMBINANT 2022 JACOB LINTON A LEFT DELTO ID [id number] 187 complet ed [facility] INFLUENZA, INJECTABLE, QUADRIVALENT, PRESERVATIVE FREE 2020 150 complet ed [facility] COVID-19 (PFIZER), MRNA, LNP-S, PF, 30 MCG/0.3 ML DOSE 2 2020 208 complet ed PFR; [id number]; 1 [facility] COVID-19 (PFIZER), MRNA, LNP-S, PF, 30 MCG/0.3 ML DOSE 1 2020 208 complet ed PFR; [id number]; 1 [facility] INFLUENZA, UNSPECIFIED FORMULATION [address] [facility] INFLUENZA, UNSPECIFIED FORMULATION [address] [facility] INFLUENZA, UNSPECIFIED FORMULATION [address] [facility] PNEUMOCOCCAL POLYSACCHARID E [id number] 2014 NONE 33 complet ed Completed Series, [facility] INFLUENZA, UNSPECIFIED FORMULATION [address] [facility] INFLU[facility], UNSPECIFIED FORMULATION 2013 NONE 88 complet ed Completed Series, [facility] TDAP 2012 115 complet ed Right Deltoid [facility] INFLUENZA, UNSPECIFIED FORMULATION [address] [facility] INFLUENZA, UNSPECIFIED FORMULATION [address] [facility] INFLUENZA, UNSPECIFIED FORMULATION [address] [facility] Results Combined list of recent chemistry, hematology and other laboratory results from Department of Defense and Veterans Affairs, ranging from 15 months to all on record, depending upon the facility. Order Name Results Value Reference Range Date Interpretation Specimen Comments Source MICRAL/CR EAT PROFILE (STL) ALBUMIN [MASS/VOLUM E] IN URINE 10.1 mg/L 11/30 Specimen Type: URINE No comment entered. Ordering Provider: DILEEP HENNING Report Released Date/Time: May 24, 2024 10:04 AM Reporting Lab: [facility] [address] [phone] Performing Lab: [facility] [address] [address] [facility] MICRAL/CR EAT PROFILE (STL) ALBUMIN/CRE ATININE [MASS RATIO] IN URINE 20 mg/g 0 - 29 11/30 Specimen Type: URINE No comment entered. Ordering Provider: DILEEP HENNING Report Released Date/Time: May 24, 2024 10:04 AM Reporting Lab: [facility] [address] [place] [phone] Performing Lab: [address] [phone] [facility] MICRAL/CR EAT PROFILE (STL) CREATININE [MASS/VOLUM E] IN URINE 50.1 mg/dL 63 - 166 11/30 L Specimen Type: URINE No comment entered. Ordering Provider: DILEEP HENNING Report Released Date/Time: May 24, 2024 10:04 AM Reporting Lab: [address] [phone] Performing Lab: [phone] [place] [address] HGA1C HEMOGLOBIN A1C/HEMOGLO BIN.TOTAL IN BLOOD 6.9 4.0 - 6.0 11/30 H Specimen Type: BLOOD No comment entered. Ordering Provider: DILEEP HENNING Report Released Date/Time: May 24, 2024 10:04 AM Reporting Lab: [address] [phone] Performing Lab: [address] [phone] [facility] LIPID PANEL (STL) CHOLESTEROL [MASS/VOLUM E] IN SERUM OR PLASMA 186 mg/dL 0 - 200 11/30 Specimen Type: PLASMA Comment: LDL calculation invalid when Triglycerid e exceeds 250 mg/dl Ordering Provider: DILEEP HENNING Report Released Date/Time: May 25, 2024 03:34 PM Reporting Lab: [address] [phone] Performing Lab: [address] [address] [facility] LIPID PANEL (STL) TRIGLYCERID E [MASS/VOLUM E] IN SERUM OR PLASMA 274 mg/dL 0 - 150 11/30 H Specimen Type: PLASMA Comment: LDL calculation invalid when Triglycerid e exceeds 250 mg/dl Ordering Provider: DILEEP HENNING Report Released Date/Time: May 25, 2024 03:34 PM Reporting Lab: [address] [address] Performing Lab: [address] [address] [facility] LIPID PANEL (STL) CHOLESTEROL IN LDL [MASS/VOLUM E] IN SERUM OR PLASMA BY DIRECT ASSAY 126 mg/dL 100 11/30 Specimen Type: PLASMA Comment: LDL calculation invalid when Triglycerid e exceeds 250 mg/dl Ordering Provider: DILEEP HENNING Report Released Date/Time: May 25, 2024 03:34 PM Reporting Lab: [address] [phone] Performing Lab: [address] [phone] [facility] LIPID PANEL (STL) CHOLESTEROL IN LDL [MASS/VOLUM E] IN SERUM OR PLASMA BY CALCULATION commen tmg/dL 11/30 Specimen Type: PLASMA Comment: LDL calculation invalid when Triglycerid e exceeds 250 mg/dl Ordering Provider: DILEEP HENNING Report Released Date/Time: May 25, 2024 03:34 PM Reporting Lab: [address] [address] Performing Lab: [address] [address] [facility] LIPID PANEL (STL) CHOLESTEROL IN HDL [MASS/VOLUM E] IN SERUM OR PLASMA 49 mg/dL 40 11/30 Specimen Type: PLASMA Comment: LDL calculation invalid when Triglycerid e exceeds 250 mg/dl Ordering Provider: DILEEP HENNING Report Released Date/Time: May 25, 2024 03:34 PM Reporting Lab: [address] [address] Performing Lab: [place] [id number] [place] [address] [facility] GLUCOSE,B LOOD-poct (STL) GLUCOSE [MASS/VOLUM E] IN BLOOD BY AUTOMATED TEST STRIP 124 mg/dL 72 - 99 08/18 H Specimen Type: BLOOD Comment: Test Performed by: [id number] Meter #: [id number] Ordering Provider: DILEEP HENNING Report Released Date/Time: Aug 18, 2024 03:57 PM Reporting Lab: [address] [address] Performing Lab: [address] [phone] [facility] MAGNESIUM MAGNESIUM [MASS/VOLUM E] IN SERUM OR PLASMA 1.9 mg/dL 1.6 - 2.6 05/24 Specimen Type: PLASMA Comment: LDL calculation invalid when Triglycerid e exceeds 250 mg/dl No hemolysis noted. Ordering Provider: DILEEP HENNING Report Released Date/Time: May 24, 2024 10:03 AM Reporting Lab: [facility] [address] [place] [phone] Performing Lab: [address] [phone] [place] [address] URIC ACID URATE [MASS/VOLUM E] IN SERUM OR PLASMA 4.9 mg/dL 3.5 - 7.2 05/24 Specimen Type: PLASMA Comment: LDL calculation invalid when Triglycerid e exceeds 250 mg/dl No hemolysis noted. Ordering Provider: DILEEP HENNING Report Released Date/Time: May 24, 2024 10:11 AM Reporting Lab: [facility] [address] [place] [phone] Performing Lab: [address] [address] [facility] PROST. SPECIFIC AG.(PB-ST L) PROSTATE SPECIFIC AG [MASS/VOLUM E] IN SERUM OR PLASMA 0.422 ng/mL 0 - 4 05/24 Specimen Type: SERUM Comment: The listed sex of this patient may not be a typical indication for this test. Therefore, reference ranges or interpretiv e criteria listed may not be valid. Clinical correlation suggested. Ordering Provider: DILEEP HENNING Report Released Date/Time: May 24, 2024 09:16 AM Reporting Lab: [facility] [address] [phone] Performing Lab: [facility] [address] [place] [phone] [facility] HGA1C HEMOGLOBIN A1C/HEMOGLO BIN.TOTAL IN BLOOD 6.6 4.0 - 6.0 05/24 H Specimen Type: BLOOD No comment entered. Ordering Provider: DILEEP HENNING Report Released Date/Time: May 24, 2024 09:16 AM Reporting Lab: [facility] [address] [place] [phone] Performing Lab: [facility] [address] [place] [phone] [facility] LIPID PANEL (STL) CHOLESTEROL [MASS/VOLUM E] IN SERUM OR PLASMA 197 mg/dL 0 - 200 05/24 Specimen Type: PLASMA Comment: LDL calculation invalid when Triglycerid e exceeds 250 mg/dl No hemolysis noted. Ordering Provider: DILEEP HENNING Report Released Date/Time: May 24, 2024 09:16 AM Reporting Lab: [facility] [address] [phone] Performing Lab: [facility] [address] [place] [phone] [facility] LIPID PANEL (STL) TRIGLYCERID E [MASS/VOLUM E] IN SERUM OR PLASMA 1148 mg/dL 0 - 150 05/24 H Specimen Type: PLASMA Comment: LDL calculation invalid when Triglycerid e exceeds 250 mg/dl No hemolysis noted. Ordering Provider: DILEEP HENNING Report Released Date/Time: May 24, 2024 09:16 AM Reporting Lab: [facility] [address] [place] [phone] Performing Lab: [facility] [address] [place] [phone] [facility] LIPID PANEL (STL) CHOLESTEROL IN LDL [MASS/VOLUM E] IN SERUM OR PLASMA BY DIRECT ASSAY 90 mg/dL 100 05/24 L Specimen Type: PLASMA Comment: LDL calculation invalid when Triglycerid e exceeds 250 mg/dl No hemolysis noted. Ordering Provider: DILEEP HENNING Report Released Date/Time: May 24, 2024 09:16 AM Reporting Lab: [facility] [address] [facility] [phone] Performing Lab: [facility] [address] [place] [phone] [place] [address] LIPID PANEL (STL) CHOLESTEROL IN LDL [MASS/VOLUM E] IN SERUM OR PLASMA BY CALCULATION commen tmg/dL 05/24 Specimen Type: PLASMA Comment: LDL calculation invalid when Triglycerid e exceeds 250 mg/dl No hemolysis noted. Ordering Provider: DILEEP HENNING Report Released Date/Time: May 24, 2024 09:16 AM Reporting Lab: [facility] [address] [address] Performing Lab: [facility] [address] [facility] [phone] [facility] LIPID PANEL (STL) CHOLESTEROL IN HDL [MASS/VOLUM E] IN SERUM OR PLASMA 36 mg/dL 40 05/24 L Specimen Type: PLASMA Comment: LDL calculation invalid when Triglycerid e exceeds 250 mg/dl No hemolysis noted. Ordering Provider: DILEEP HENNING Report Released Date/Time: May 24, 2024 09:16 AM Reporting Lab: [facility] [address] [facility] [phone] Performing Lab: [facility] [address] [facility] [phone] [facility] MICRAL/CR EAT PROFILE (STL) ALBUMIN [MASS/VOLUM E] IN URINE 25.7 mg/L 05/24 Specimen Type: URINE No comment entered. Ordering Provider: DILEEP HENNING Report Released Date/Time: May 24, 2024 09:16 AM Reporting Lab: [facility] [address] [phone] Performing Lab: [facility] [address] [phone] [facility] MICRAL/CR EAT PROFILE (STL) ALBUMIN/CRE ATININE [MASS RATIO] IN URINE 42 mg/g 0 - 29 05/24 H Specimen Type: URINE No comment entered. Ordering Provider: DILEEP HENNING Report Released Date/Time: May 24, 2024 09:16 AM Reporting Lab: [facility] [address] [phone] Performing Lab: [facility] [address] [address] [facility] MICRAL/CR EAT PROFILE (STL) CREATININE [MASS/VOLUM E] IN URINE 61.8 mg/dL 63 - 166 05/24 L Specimen Type: URINE No comment entered. Ordering Provider: DILEEP HENNING Report Released Date/Time: May 24, 2024 09:16 AM Reporting Lab: [facility] [address] [phone] Performing Lab: [facility] [address] [place] [phone] [facility] Vital Signs Combined list of inpatient and outpatient Vital Signs from Department of Defense and Veterans Affairs, ranging from 12 months to all on record, depending upon the facility. Vital Sign Value Date Comments Source SYSTOLIC BLOOD PRESSURE 128 08/18/20 24 14:31:22 [facility] DIASTOLIC BLOOD PRESSURE 75 024 14:31:22 [facility] PULSE OXIMETRY 97 08/18/2024 14:31:22 [facility] WEIGHT 216.2 08/18/2024 14:31:22 [facility] BMI 30 kg/m2 08/18/2024 14:31:22 [facility] PAIN 4 08/18/2024 14:31:22 [facility] HEIGHT 71 08/18/2024 14:31:22 [facility] TEMPERATURE 98 08/18/2024 14:31:22 [facility] PULSE 79 08/18/2024 14:31:22 [facility] RESPIRATION 16 08/18/2024 14:31:22 [facility] SYSTOLIC BLOOD PRESSURE 134 05/24/20 09:44:42 [facility] DIASTOLIC BLOOD PRESSURE 88 024 09:44:42 [facility] PULSE OXIMETRY 98 05/24/2024 09:44:42 [facility] WEIGHT 214.6 05/24/2024 09:44:42 [facility] BMI 30 kg/m2 05/24/2024 09:44:42 [facility] PAIN 3 05/24/2024 09:44:42 [facility] TEMPERATURE 97.5 05/24/2024 09:44:42 [facility] PULSE 76 05/24/2024 09:44:42 [facility] RESPIRATION 16 05/24/2024 09:44:42 [facility] Encounters Combined list of: 1) Encounters from Department of Veterans Affairs facilities going backup to the last 18 months, not all VA inpatient encounters are included; 2) Encounters from the Department of [facility] facilities going backup to 280 months. Location Location Details Encounter Type Encounter Number Reason For Visit Attending Provider ADM Date DC Date Status Disposition Source [facility] OFFICE O/P EST MOD 30 MIN [id number] Diagnos is: ICD-10- CM E11.8 Type 2 diabete s mellitu s with unspeci fied complic ations DILEEP HENNING 10/21 [facility] Outpatient Encounter [id number] 11/12 [facility] THERAPEUTI C ACTIVITIES [id number] Diagnos is: ICD-10- CM M25.571 Pain in right ankle and joints of right foot TITA CRUZ 11/12 [facility] [id number] 12/07 [facility] Encounter [id number] 12/21 [facility] OFFICE O/P NEW MOD 45 MIN [id number] Diagnos is: ICD-10- CM M72.0 Palmar fascial fibroma tosis [Dupuyt mason] [facility] 02/01 [facility] QNHP OL DIG ASSMT&MGMT 5-10 [id number] Diagnos is: ICD-10- CM M72.0 Palmar fascial fibroma tosis [Dupuyt mason] Maria Esther BEARD 02/03 [facility] Outpatient Encounter [id number] 02/07 [facility] TYMPANOMET RY [id number] Diagnos is: ICD-10- CM H90.3 Sensori neural hearing loss, bilater JOSÉ MIGUEL Michelle M 02/08 [facility] HEARING AID EXAM BOTH EARS [id number] Diagnos is: ICD-10- CM H90.3 Sensori neural hearing loss, reginaater JOSÉ MIGUEL Michelle M 02/08 [facility] OFFICE O/P EST LOW 20 MIN [id number] Diagnos is: ICD-10- CM M72.0 Palmar fascial fibroma tosis [Dupuyt mason] CAROLINA WISDOM [facility] 02/22 [facility] OT EVAL MOD COMPLEX 45 MIN [id number] Diagnos is: ICD-10- CM M72.0 Palmar fascial fibroma tosis [Dupuyt mason] RANJITH ROD K 02/24 [facility] OFFICE O/P EST SF 10 MIN [id number] Diagnos is: ICD-10- CM M72.0 Palmar fascial fibroma tosis [Dupuyt mason] CAROLINA WISDOM [facility] 02/24 [facility] HC PRO PHONE CALL 5-10 MIN [id number] Diagnos is: ICD-10- CM M72.0 Palmar fascial fibroma tosis [Dupuyt mason] CIELO GARCIA 03/09 [facility] Outpatient Encounter [id number] 03/10 [facility] HEARING AID SUP/ACCESS /DEV [id number] Diagnos is: ICD-10- CM H90.3 Sensori neural hearing loss, bilater al JOSÉ MIGUEL BACON 03/11 [facility] OFF/OP EST MAY X REQ PHY/QHP [id number] [id number] Diagnos is: ICD-10- CM R52 Pain, unspeci fied NATHALIA-TA NNER,EMILY DETTE G 03/11 [facility] OFFICE O/P EST HI 40 MIN [id number] Diagnos is: ICD-10- CM M72.0 Palmar fascial fibroma tosis [Dupuyt mason] CIELO GARCIA RONNA 03/11 [facility] OFFICE O/P EST SF 10 MIN [id number] Diagnos is: ICD-10- CM M72.0 Palmar fascial fibroma tosis [Dupuyt mason] CAROLINA WISDOM ESH 03/22 [facility] OFFICE O/P EST LOW 20 MIN [id number] Diagnos is: ICD-10- CM M54.2 Cervica LEAH OrtizIA F 03/22 [facility] Outpatient Encounter [id number] DILEEP HENNING 04/14 [facility] Outpatient Encounter [id number] 04/19 [facility] Outpatient Encounter [id number] 04/19 [facility] OFF/OP EST MAY X REQ PHY/QHP [id number] Diagnos is: ICD-10- CM Z71.9 Career Development Facilitator ing, unspeci Maria Esther Escalona F 05/24 [facility] OFFICE O/P EST MOD 30 MIN [id number] Diagnos is: ICD-10- CM I10 Essenti al (primar y) hyperte nsion DILEEP HENNING D 05/24 [facility] Outpatient Encounter [id number] 05/24 [facility] Outpatient Encounter [id number] 05/24 [facility] FUNDUS PHOTOGRAPH Y W/I&R [id number] [id number] Diagnos is: ICD-10- CM Z13.5 Encount er for screeni ng for eye and ear disorde rs DILEEP HENNING 05/24 [facility] Outpatient Encounter [id number] Diagnos is: ICD-10- CM Z13.5 Encount er for screeni ng for eye and ear disorde rs MEIR,NISAH Johnson 05/25 [facility] Outpatient Encounter [id number] Diagnos is: ICD-10- CM E78.5 Hyperli pidemia , unspeci fied DILEEP HENNING 05/25 [facility] OFF/OP EST MAY X REQ PHY/QHP [id number] [id number] Diagnos is: ICD-10- CM Z71.9 Career Development Facilitator ing, unspeci fiMaria Esther East F 07/08 [facility] Outpatient Encounter [id number] 07/14 [facility] Outpatient Encounter [id number] DILEEP HENNING 08/15 [facility] OFFICE O/P EST LOW 20 MIN [id number] [id number] Diagnos is: ICD-10- CM M25.571 Pain in right ankle and joints of right foot DILEEP HENNING 08/18 [facility] Outpatient Encounter [id number] 10/18 [facility] Outpatient Encounter [id number] 10/20 [facility] Outpatient Encounter [id number] DILEEP HENNING 11/21 [facility] SYNCH AUDIO-ONLY EST MOD 30 [id number] Diagnos is: ICD-10- CM F39 Unspeci fied mood [affect navid] disorde KEMAR MorganMMA N 11/23 [facility] OFFICE O/P NEW SF 15 MIN [id number] Diagnos is: ICD-10- CM G47.33 Obstruc tive sleep apnea (adult) (pediat ez) MEHUL DIAZ MD 11/30 [facility] Outpatient Encounter [id number] 12/01 [facility] Outpatient Encounter [id number] 02/23 [facility] OFF/OP EST MAY X REQ PHY/QHP [id number] Diagnos is: ICD-10- CM Z71.9 Career Development Facilitator ing, unspeci fied Maria Esther MONTANO 02/24 [facility] DETERMINE REFRACTIVE STATE [id number] Diagnos is: ICD-10- CM E11.9 Type 2 diabete s mellitu s without complic ations Jaydon RODRIGUEZ 02/28 [facility] Outpatient Encounter [id number] 03/01 [facility] Social History Combined list of available smoking, tobacco, and other social history from Department of Defense and Veterans Affairs facilities. Social History Type Response Date Comment Sourc e Tobacco smoking status NHIS VA-TOBACCO QUIT 15 YRS OR MORE 05/24/2024 [facility] History of tobacco use VA-TOBACCO FORMER USER 05/24/2024 [facility] History of tobacco use VA-TOBACCO QUIT 5 TO < 15 YRS 04/23/2023 [facility] History of tobacco use VA-TOBACCO FORMER USER 03/20/2022 [facility] History of tobacco use VA-TOBACCO FORMER USER 11/22/2020 [facility] History of tobacco use VA-TOBACCO FORMER USER 09/30/2019 [facility] History of tobacco use QUIT TOBACCO >7 YEARS AGO 01/18/2018 [facility] History of tobacco use QUIT TOBACCO >7 YEARS AGO 10/09/2017 [facility] History of tobacco use QUIT TOBACCO >7 YEARS AGO 02/11/2017 [facility] History of tobacco use LIFETIME NON-USER OF TOBACCO 02/20/2016 [facility] History of tobacco use LIFETIME NON-USER OF TOBACCO 12/22/2014 [facility] History of tobacco use LIFETIME NON-USER OF TOBACCO 12/30/2013 [facility] History of tobacco use QUIT TOBACCO >12 MO and <7 YRS AGO 08/03/2012 [facility] Plan of Care List of future care activities from [facility] facilities. Additional future care activities may be listed in the Assessment and Plan section. Date/Time Care Activity Care Activity Detail Facili ty 04/07/2025 AMBULATORY - NONE AMBULATORY - NONE [facility] Advance Directives List of completed, amended, or rescinded Advance Directives on record at [facility] facilities. An actual copy of the Directive is not included. Date Advance Directive Provider Source 02/19/2017 ADVANCE DIRECTIVE DISCUSSION MICHEAL DALTON [facility]
--- OUTSIDE RECORDS SUMMARY | 2025-04-01 21:04 | XMS_ITS | Clinical Summary ---
Author Organization [facility] Address [facility] [place] [address] Care Team Providers Care Pipelaying Fitter Name Role Phone Juan Joe MD Primary Care Provider [phone] Allergies Active Allergy Reactions Criticality Noted Date Comments Lisinopril Swelling 03/23/2018 Losartan Swelling High 01/21/2018 Oxycodone-Acetaminophen Throat swelling,Unknown High 12/07/2012 Medications metoprolol succinate ER 50 MG 24 hr tablet Take 1 tablet (50 mg total) by mouth daily. Active fenofibrate 160 MG tablet Take 1 tablet (160 mg total) by mouth daily. Active loratadine 10 MG tablet Take 1 tablet (10 mg total) by mouth daily. May take extra dose if needed Active enalapril 5 MG tablet Take 1 tablet (5 mg total) by mouth daily. Active metFORMIN 500 MG tablet Take 2 tablets (1,000 mg total) by mouth 2 (two) times daily with meals. Active FLUoxetine 40 MG capsule Take 1 capsule (40 mg total) by mouth daily. Active [place]-3 Fatty Acids (FISH OIL) 1200 MG Cap Take 1,200 mg by mouth daily. Active canagliflozin (INVOKANA) 100 MG tablet Take 1 tablet (100 mg total) by mouth every morning before breakfast. Active Active Problems Problem Noted Date Diagnosed Date Osteoarthrosis of ankle and foot, right 01/10/20 21 Instability of ankle, right 01/09/2021 Family History Medical History Relation Comments Hypertension Father Stroke Father Alzheimers Mother Relation Status Comments Father Mother Social History Tobacco Use Types Packs/Day Years Used Date Smoking Tobacco: Former Cigarettes Q uit: 2009 Smokeless Tobacco: Never Tobacco Cessation:Counseling Given: Not Answered Alcohol Use Standard Drinks/Week Comments Not Currently 0 (1 standard drink = 0.6 oz pur e alcohol) rarely Sex and Gender Information Value Date Recorded Sex Assigned at Not on file Legal 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 Gender Identity Not on file Sexual Orientation Not on file Last Filed Vital Signs Vital Sign Reading Time Taken Comments Blood Pressure 128/63 03/17/2023 9:17 AM CDT Pulse 68 03/17/2023 9:17 AM CDT Temperature 36.2 C (97.2 F) 03/17/2023 9:17 AM CDT Respiratory Rate 16 03/17/2023 9:17 AM CDT Oxygen Saturation 98% 03/17/2023 9:17 AM CDT Inhaled Oxygen Concentration - - Weight 103.4 kg (228 lb) 03/10/2023 2:57 PM CDT Height 180.3 cm (5' 11) 03/10/2023 2:57 PM CDT Body Mass Index 31.8 03/10/2023 2:57 PM CDT Plan of Treatment Health Maintenance Due Date Last Done Comments Annual Physical 1965 Hepatitis C 1980 Pneumococcal Vaccine: 50+ Years (1 of 1 - PCV) 2012 Zoster Vaccines (1 of 2) 2012 COVID-19 Vaccine (1 - 2023-2 5 season) 2024 PHQ-2 (Physician [place]) 09/28/2024 DTaP, Tdap and Td Vaccines ( 2 - Td or Tdap) 08/04/2027 08/04/2017 Colorectal Cancer Screening Colonoscopy (10 Years) 03/17/2033 03/17/2023, 03/17/2023, RSV Immunization or 60+ Years (1 - 1-dose 75+ series) 2037 Meningococcal B Vaccine Aged Out No l onger eligible based on patient's age to complete this topic Meningococcal Vaccine Aged Out No daniela amrik eligible based on patient's age to complete this topic RSV Immunizations Under 20 Months Aged Out No longer eligible b ased on patient's age to complete this topic Medical Devices Implanted Type Area Cabinet Maker Device Identifier Shelf Expiration Date Model / Serial / Lot Graft Bone Bonus Triad Cancellous Cortical 5cc Allograft - [id number] Implanted:Qty: 1 on 11/29/2020 by Aniya Lugo MD at [facility] Bone Right: Ankle [employer] 10/20/2024 [id number] / [id number] / N/A 5.5 X 40 Non Locking Screw Implanted:Qty: 2 on 11/29/2020 by Aniya Lugo MD at [facility] Right: Ankle [employer] [id number] / / 3.5 X 28 Mm Locking Screw Implanted:Qty: 1 on 11/29/2020 by Aniya Lugo MD at [facility] Right: Ankle [employer] [id number] / / NA [place] Anterior Plate Implanted:Qty: 1 on 11/29/2020 by Aniya Lugo MD at [facility] Right: Ankle [employer] [id number] / / NA 3.5 X 34 Mm Locking Screw Implanted:Qty: 1 on 11/29/2020 by Aniya Lugo MD at [facility] Right: Ankle [employer] [id number] / / NA 5.5 X 30 Mm Non Locking Screw Implanted:Qty: 1 on 11/29/2020 by Aniya Lugo MD at [facility] Right: Ankle [employer] [id number] / / NA 5.5 X 32 Mm Locking Screw Implanted:Qty: 2 on 11/29/2020 by Aniya Lugo MD at [facility] Right: Ankle [employer] [id number] / / NA 5.5 X 38 Non Locking Screw Implanted:Qty: 1 on 11/29/2020 by Aniya Lugo MD at [facility] Right: Ankle [employer] [id number] / / Explanted Type Area Cabinet Maker Device Identifier Shelf Expiration Date Model / Serial / Lot Drill Bit 2.5mm X 60mm OZ [employer] - [id number] Explanted:Qty: 1 on 11/29/2020 by Aniya Lugo MD at [facility] Drill Right: Ankle [employer] [id number] / / 3.8 Mm Drill Explanted:Qty: 1 on 11/29/2020 by Aniya Lugo MD at [facility] Right: Ankle [employer] [id number] / / NA Temporary Fixation Pin Explanted:Qty: 1 on 11/29/2020 by Aniya Lugo MD at [facility] Right: Ankle [employer] [id number] / / NA 2.5 K-Wire Explanted:Qty: 1 on 11/29/2020 by Aniya Lugo MD at [facility] Right: Ankle [employer] [id number] / / NA Procedures Procedure Name Priority Date/Time Associated Diagnosis Comments COLONOSCOPY 03/17/2023 6:46 AM CDT from Last 3 Months or Most Recently Relevant to Health Maintenance Results * Colonoscopy (03/17/2023 6:46 AM CDT) Yuri Warner MD GI PROCEDURE ORDERABLES Final Result from Last 3 Months or Most Recently Relevant to Health Maintenance Insurance [employer] Member Subscriber Plan / Payer ( fective 2024-Present) Name:Grant Saenz Relation to Subscriber:Self Name:Grant Saenz Payer ID:Not on file Group ID:[id number] Type:Not on file Advance Directives Documents on File Type Date Recorded Patient Candy Packer Expl anation Legal Documents 05/28/2021 11:04 AM RECVD & CMPLTD ATTY REQ. FOR HB BILLS FOR SFL FOR RACHELLE CORCORAN LAW Care Teams Pipelaying Fitter Relationship Specialty Start Date End Date Juan Joe MD [address] [place] [address] PCP - General FAMILY PRACTICE 08/01/19
--- OUTSIDE RECORDS SUMMARY | 2025-04-01 21:04 | XMS_ITS ---
Author Name [facility] Organization [facility] Address [address] [place] [id number] Care Team Providers Care Fishing Captain Name Role Phone DILEEP HENNING Primary Care Provider Unavailabl e Selected Encounter This section includes the information on record at [facility] for the Encounter. Date/Time Encounter Type Encounter Description Reason Provider Source Feb 28, 2025 01:30 PM DETERMINE REFRACTIVE STATE OPTOMETRY ICD-10-CM E11.9 Type 2 diabetes mellitus without complications CRISTOBAL RODRIGUEZ [facility] Encounter Template Text not used by [facility] Assessments - Encounter Diagnoses This section includes the primary and secondary diagnoses documented for the Encounter. Date/Time Primary/Secondary Diagnosis Diagnosis Name Provider Source Feb 28, 2025 02:36 PM PRIMARY Type 2 diabetes mellitus without complications MO RODRIGUEZ ON [facility] Feb 28, 2025 02:36 PM SECONDARY Combined forms of age-related cataract, bilateral MO RODRIGUEZ ON [facility] Feb 28, 2025 02:36 PM SECONDARY Unspecified disorder of refraction MO RODRIGUEZ ON [facility] Plan of Treatment: Future Appointments (+ 6 months) and Future Tests (+/- 45 days) The Plan of Treatment section includes future care activities for the patient from all [place] treatmentfacilities. This section includes future appointments and future orders which are active, pending or scheduled. Future Appointments This section includes appointments that were scheduled to occur 6 months from the date of the Encounter, up to a maximum of 20 appointments. The data comes from all [place] treatment facilities. Appointment Date/Time Appointment Type Appointme nt Facility Name Apr 07, 2025 10:30 AM AMBULATORY - NONE [facility] May 23, 2025 11:00 AM AMBULATORY - MEDICINE [facility] Active, Pending, and Scheduled Orders This section includes a listing of several types of active, pending, and scheduled orders, including clinic medications orders, diagnostic test orders, procedure orders and consult orders; where the start date of the order is 45 days before the date of the Encounter or 45 days after the date of theEncounter. The data comes from all [facility] treatment [facility]. Test Date/Time Test Type Test Details Facility Name Feb 28, 2025 04:44 PM Consult Order [facility] MANDIBULAR REPOSITIONING DEVICE ST[facility] Cons Health Information Assistant's [facility] Social History: Smoking Status (Most current) and Tobacco Use (All prior to encounter date) This section includes the most current, and the historical, smoking and tobacco- related health factors from the [facility] facility where the Encounter took place. Current Smoking Status This section includes the most current smoking, or tobacco-related health factor, from the [facility] facility where the Encounter took place. Date/Time Current Smoking Status Comment Suresh ity Sep 30, 2019 11:19 AM HI-TOBACCO QUIT 5 TO < 15 YRS [facility] Tobacco Use History This section includes a history of the smoking, or tobacco-related health factors, that were collected on or before the date of the Encounter. The data comes from the [facility] facility where the Encounter took place. Date/Time Smoking Status/Tobacco Use Comment F acyonatan Sep 30, 2019 11:19 AM HI-TOBACCO QUIT 5 TO < 15 YRS [facility] February 11, 2017 09:46 AM QUIT TOBACCO >7 YEARS AGO [facility] February 20, 2016 09:01 AM LIFETIME NON-USER OF TOBACCO [facility] Dec 22, 2014 11:03 AM LIFETIME NON-USER OF TOBACCO [facility] Dec 30, 2013 09:52 AM LIFETIME NON-USER OF TOBACCO [facility] Aug 03, 2012 10:16 AM QUIT TOBACCO >12 M O & <7 YRS AGO [facility] Advance Directives: All historical and current Section Date Range: From patient's date of to the date document was created. This section includes ALL of a patient's completed or amended [place] Advance and Rescinded Directives. The entries below indicate that a directive exists for the patient, but an actual copy is not included with this document. The data comes from all [place] facilities. Date Advance Directives Provider Source February 19, 2017 ADVANCE DIRECTIVE DISCUSSION MICHEAL DALTON [facility] Encounter Notes: All associated encounter notes This section contains the clinical notes associated to the Encounter. Date/Time Encounter Note(s) Provider Source Feb 28, 2025 01:53 PM OPTOMETRY NOTE: LOCAL TITLE: EYEGLASS PRESCRIPTION NOTE [facility] STANDARD TITLE: OPTOMETRY NOTE DATE OF NOTE: FEB 28, 2025@13:53 ENTRY DATE: FEB 28, 2025@13:53:06 AUTHOR: JOSHUA RODRIGUEZ EXP COSIGNER: URGENCY: STATUS: COMPLETED DATE OF LAST EYE EXAM:FEB 28, 2025 OD: -1.25 sph 20/20-2 OS: -0.75 sph 20/20-1 Add: +2.50 LENS MATERIAL: Polycarbonate LENS TYPE: PAL - Previous wearer Other Add Ons: Anti-reflective Additional Comments: /mark/ JOSHUA RODRIGUEZ OD Staff Physician, Optometry Signed: 02/28/2025 13:53 JOSHUA RODRIGUEZ [facility] Feb 28, 2025 01:36 PM OPTOMETRY NOTE: LOCAL TITLE: OPTOMETRY NOTE STANDARD TITLE: OPTOMETRY NOTE DATE OF NOTE: FEB 28, 2025@13:36 ENTRY DATE: FEB 28, 2025@13:36:30 AUTHOR: JOSHUA RODRIGUEZ EXP COSIGNER: URGENCY: STATUS: COMPLETED Last seen 11/19/22 Reason for visit: ocular health exam CC: 1. Vision fluctuates at times can be blurry lost glasses for about 2 weeks habitual glasses from 2022 2. Type 2 Diabetes bg control stable per pt no history of retinopathy Ocular meds: none Ocular ROS: 1. Diabetes without retinopathy OU 2. Headaches 3. Immature Cataracts OU 4. Refractive Error with Presbyopia OU Family OcHX: (-) blindness (-) glaucoma (-) AMD (+) RD - sister Cardiovascular ROS: no change from problem & medication lists [facility] Problem list, medications and allergies reviewed: CPRS Serology for Diabetes GLUCOSE 234 H mg/dL 05/24/2024 09:30 HGA1C 6.9 H % 11/30/2024 09:57 Cardiovascular BP: 128/75 (08/18/2024 14:31) Pulse: 79 (08/18/2024 14:31) Neuro: Orientation: Normal Psych: Mood/Affect: Normal Depression/suicide ideation: NO VISUAL ACUITY With correction Distance Visual Acuity O.D. 20/40 O.S. 20/40-2 Pupils PERRL OU (-)APD Confrontation: FTFC OU Extra-Ocular Muscles Full OU, (-) diplopia, (-) pain Externals/adnexa: Unremarkable OU Refraction: 11/19/22 O.D. -0.25 - 0.75 x 060 20/20 O.S. plano - 0.75 x 060 20/20- Add: + 2.25 Refraction 02/28/25 OD: -1.25 sph 20/20-2 OS: -0.75 sph 20/20-1 Add: +2.50 SLIT LAMP EXAMINATION Lids/Lashes/Lacrimal MGD OU Conjunctiva/Sclera White/quiet OU Cornea Clear OU Ant Chamber Deep and quiet OU; no cells or flare Iris Normal, (-)NVI OU Lens Tr-1 NS cataract OU; cortical spoke nasal OD, mild peripheral cortical OS Intraocular Pressures (Goldmann) 1 gtt fluress Date: O.D. O.S. Time Meds 02/28/25 14 14 1352 none RETINAL EVALUATION 1 phenyleph 2.5%, 1 trop 1% OU DFE Dilated retinal exam Optic Nerve OD: 0.50 CDR Flat, pink, distinct (-)NVD OS: 0.45 CDR Flat, pink, distinct (-)NVD Vessels: 2/3 OU; no tortuosity noted Macula: O.D. Flat, clear (-)CSME O.S. Flat, clear (-)CSME Periphery: OD: Flat and attached; no holes, tears, detachments 360 OS: Flat and attached; no holes, tears, detachments 360 Vitreous: No PVD O.U. Assessment/Plan 02/28/2025 1. Diabetes without retinopathy - Last HgA1C 6.9 - No DME OU - Advised pt on importance of tight bg control - Monitor with annual DFE 2. 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 - not visually significant - ed. pt on findings - Monitor at this time 3. Refractive error/Presbyopia - increase in bva w/refraction - sig change in refraction today - pt appreciated change - order new glasses Pt educated on all findings RTC 12 months with CEE, sooner with changes /es/ JOSHUA RODRIGUEZ, OD Staff Physician, Optometry Signed: 02/28/2025 14:37 JOSHUA RODRIGUEZ [facility]
--- OUTSIDE RECORDS SUMMARY | 2025-04-01 21:04 | XMS_ITS | Continuity of Care Document ---
Author Organization [facility] Address [address] [place] [address] Phone Care Team Providers Care Instrument And Controls Technician Name Role Phone Fawn Adams DPM Unavailable Unavailable Procedures Procedure Date Medical Testimony Deposition X-ray exam foot, minimum 3 views 2022 Independent Medical Examination SAGAR Pre Payment Advance Directives Directive Yes / No Effective Date File Name No Information Encounters Encounter Description Practice Location Reason(s) For Visit Diagnoses Date Provider Providers Copied on Encounter [facility], [address] [place] [address], [id number], [place] tel:[phone] [facility] No Information 4 Angie R. [address] [facility], [address], [id number] , [place]. tel: [phone] Independent Medical Examination SAGAR [facility], [address] [place] [address], [id number], [place] tel:[phone] [facility] right ankle (chief complaint) Pain in right ankle and joints of right foot 3 Angie R. [address] [facility], [facility] [[email or web address] [address], [place], [place], [id number] , [place]. tel: [phone] [facility], [address] [place] [address], [id number], tel:[phone] [facility] No Information 3 Angie Pyle [facility], [address], [place], [place], [id number] , . tel: [phone] Family History Family Member Type Diagnosis Age At Onset Mother Problem (finding) Gout Father Problem (finding) Stroke Sister Problem (finding) Cancer, unknown Father Problem (finding) Heart Disease Mother Problem (finding) Osteoarthritis Payers Payer name Insurance type Covered alliance party ID Authoriza tion(s) No Information Social History Type Description Quantity Date Captured Comments Sex Male Smoking Status No Information Chief Complaint And Reason For Visit No Information Reason For Referral Reason For Referral No Information Plan Of Treatment Date Type Action Status Referral Ordered: X-ray exam foot, minimum 3 views RT ordered History Of Present Illness Encounter Date Complaint History Of Prese nt Illness right ankle Grant comes int he office today for an SAGAR. Functional Status Date Functional Assessmen t No Information Instructions Date Instruction Additional Infor mation No Information Assessments Type Assessment Date No Information Patient Care Teams Name Effective Dates (start - stop) Status Members No Information
--- NOTE | 2025-04-01 21:07 | ED_ITS ---
HPI - Allergic Reaction General Chief complaint: Allergic Reaction Stated complaint: possible allergic reaction Time Seen by Provider: 04/01/25 21:07 Source: patient Mode of arrival: ambulatory Limitations: no limitations History of Present Illness HPI narrative: 64-year-old male with a history of JARRED,hypertension, diabetes mellitus, dyslipidemia, gout status post recent right ankle fusion on hydrocodone/ acetaminophen presents to the ED with a 2 day history of -- swelling of the fingers of both hands with itching. No joint pain. No throat swelling/ tongue swelling, shortness of breath / wheezing or lightheadedness. The patient cleaned his wound and was exposed to gasoline 2 days ago. No new medication other than his pain medication which includes hydrocodone /acetaminophen no skin rash on the rest of the body. No hives. patient is listed as allergic to estimate a fan, oxycodone and lisinopril. MD complaint: allergic reaction Onset (ago): day(s) ( Two days) Exposure: unknown and medication ( patient takes) Symptoms: other ( Finger swelling with itching) Treatment prior to arrival: none Previous Allergic Reaction History: none Related Data Home Medications ?Medication ?Instructions ?Recorded ?Confirmed ?Last Taken ?Type allopurinol 100 mg tablet 100 mg PO BID 02/26/23 05/10/24 Unknown History atorvastatin 80 mg tablet 80 mg PO DAILY 02/26/23 05/10/24 Unknown History canagliflozin 300 mg tablet 300 mg PO DAILY 02/26/23 05/10/24 Unknown History (Invokana) enalapril maleate 5 mg tablet 5 mg PO DAILY 02/26/23 05/10/24 Unknown History fenofibrate 160 mg tablet 160 mg PO DAILY 02/26/23 05/10/24 Unknown History fluoxetine 40 mg capsule 40 mg PO DAILY 02/26/23 05/10/24 Unknown History glipizide 2.5 mg tablet, extended 2.5 mg PO DAILY 02/26/23 05/10/24 Unknown History release 24 hr loratadine 10 mg tablet 10 mg PO BID 02/26/23 05/10/24 Unknown History metformin 500 mg tablet,extended 2,000 mg PO DAILY 02/26/23 05/10/24 Unknown History release 24 hr metoprolol succinate 50 mg 50 mg PO DAILY 02/26/23 05/10/24 Unknown History tablet,extended release 24 hr montelukast 10 mg tablet 10 mg PO DAILY 02/26/23 05/10/24 Unknown History omega-3 fatty acids 500 mg PO DAILY 02/26/23 05/10/24 Unknown History Allergies Allergy/AdvReac Type Severity Reaction Status Date / Time acetaminophen (From Percocet) Allergy Swelling Verified 04/01/25 21:12 lisinopril Allergy Swelling Verified 04/01/25 21:12 oxycodone (From Percocet) Allergy Swelling Verified 04/01/25 21:12 Review of Systems 2 Review of Systems: All systems reviewed & are unremarkable except as noted in HPI and below Constitutional: Constitutional: Reports as per HPI and Reports no additional constitutional complaints Eyes: Eyes: Reports as per HPI and Reports no additional eye complaints ENT: Reports system reviewed and no additional complaints, except as documented and Reports as per HPI Cardiovascular: Cardiovascular: Reports as per HPI and Reports no additional cardiovascular complaints Respiratory: Respiratory: Reports as per HPI and Reports no additional respiratory complaints Gastrointestinal: Gastrointestinal: Reports as per HPI and Reports no additional gastrointestinal complaints Genitourinary: Genitourinary: Reports no additional male genitourinary complaints and Reports as per HPI Musculoskeletal: Comments: status post right ankle fusion Integumentary/Breasts: Skin/Breast: Reports system reviewed and no additional complaints, except as docu and Reports as per HPI Comments: finger swelling with itching of the fingers Neurologic: Reports system reviewed and no additional complaints, except as documented and Reports as per HPI Psychiatric: Psychiatric: Reports no additional psychiatric complaints and Reports as per HPI Endocrine: Endocrine: Reports no additional endocrine complaints and Reports as per HPI Hematologic/Lymphatic: Hematologic/Lymphatic: Reports no additional hematologic/lymphatic complaints and Reports as per HPI Allergic/Immunologic: Allergic/Immunologic: Reports no additional allergic/immunologic complaints and Reports as per HPI [facility] Past Medical History Medical History Diabetes Sleep apnea with use of continuous positive airway pressure (CPAP) Elevated cholesterol Hypertension Surgical History Surgical History History of ankle surgery right ankle fusion Social History Social History Smoking status: Former smoker Additional smoking assessment comments: quit 15 years ago Alcohol intake: current Alcohol use details: rare social Substance use type: does not use Living arrangements: with family Gender identity (if verbalized by the patient): Male Exam 2 Narrative: blood pressure 155/91 Const: General: no acute distress Nutritional Appearance: well nourished Orientation/consciousness: patient oriented x3 Limitations: no limitations HENMT: Head: normal to inspection Ears: external ears normal F eve/Nose/Sinus: Normal external nose present Face and sinus: normal facial exam Mouth: Yes Normal oral and palatal mucosa present Throat: posterior oropharynx normal Eyes: Conjunctivae: conjunctivae normal Pupils: Equal, round and reactive pupils present EOM: EOMs intact bilaterally Direct Ophthalmoscopy: no photophobia Neck: Neck: normal visual inspection, no lymphadenopathy and no meningeal signs Chest: Chest palpation & inspection: normal inspection of the chest Resp: Effort & Inspection: normal respiratory effort Auscultation: clear to auscultation bilaterally Cardio: Rate: regular rate Rhythm: regular rhythm GI: GI Palp: Yes Soft to palpation Auscultation: normal bowel sounds O ther: no tenderness/ rigidity /rebound : General: Yes no CVA tenderness Back/Spine/Pelvis: Back: no CVA tenderness Skin: General skin exam: normal color Rashes: no rashes Other: fingers erythematous with swelling Neuro: General: patient oriented x3, moves all extremities, no meningeal signs, no focal motor deficits and CN's II-XI intact bilaterally Cranial nerves: Yes Nystagmus not present Speech: normal speech Gait exam (Neuro): Normal gait present Extrem: General: normal to inspection and no clubbing, cyanosis or edema O ther: erythematous swelling of fingers with itching Psych: Mental Status: mental status grossly normal Affect: normal affect Attitude: cooperative Course Course Emergency Course: finger swelling with erythema and itching- Patient has a normal white cell count. CRP is elevated 1.9. CARMEN CCP pending. Patient is recovering from right ankle fusion. He has a history of diabetes mellitus. Will hold off steroids for now. Would use Benadryl p.r.n.. The patient has allergy to Lisinopril and oxycodone. it continues to be on enalapril and hydrocodone. Would recommend changing these medications. Vital Signs Vital signs: Vital Signs Temperature 36.4 C 04/01/25 21:02 Pulse Rate 73 04/01/25 21:02 Respiratory Rate 20 04/01/25 21:02 Blood Pressure 155/91 H 04/01/25 21:02 Pulse Oximetry 95 04/01/25 21:02 Oxygen Delivery Room Air 04/01/25 21:02 Temperature 36.4 C 04/01/25 21:02 Pulse Rate 73 04/01/25 21:02 Respiratory Rate 20 04/01/25 21:02 Blood Pressure 155/91 H 04/01/25 21:02 Pulse Oximetry 95 04/01/25 21:02 Oxygen Delivery Room Air 04/01/25 21:02 MDM - Allergic Reaction MDM Narrative Medical decision making narrative: Contact dermatitis allergic reaction to hydrocodone and a cm Differential Diagnosis Differential diagnosis: Likely adverse reaction to drug Lab Data Attestation: I reviewed the patient's lab results. 04/01/25 22:15 04/01/25 22:15 Labs: Lab Results 04/01/25 Range/Units 22:15 WBC 8.2 (4.8-10.8) K/mm3 RBC 5.03 (4.70-6.10) M/mm3 Hgb 14.8 (14.0-18.0) g/dL Hct 44.8 (40.0-54.0) % MCV 89.1 (78.0-102.0) fL MCH 29.4 (27.0-31.0) pg MCHC 33.0 (32-36) g/dL RDW 12.6 (11.6-14.4) % Plt Count 358 (150-420) K/mm3 MPV 9.3 (8.7-11.0) fl Immature Gran % (Auto) 0.6 H (0.0-0.0) % Neut % (Auto) 70.2 H (50.0-70.0) % Lymph % (Auto) 19.1 (18.0-42.0) % [place] % (Auto) 5.9 (2.0-11.0) % Eos % (Auto) 3.7 (1.0-6.0) % Baso % (Auto) 0.5 (0.0-1.0) % Lymph # (Auto) 1.56 (1.10-4.50) K/mm3 [place] # (Auto) 0.48 (0.10-0.90) K/mm3 Eos # (Auto) 0.30 (0.02-0.50) K/mm3 Baso # (Auto) 0.04 (0.00-0.10) K/mm3 Abs Immat Gran (auto) 0.05 H (0.00-0.00) K/mm3 Absolute Neuts (auto) 5.75 (1.70-7.20) K/mm3 Absolute Nucleated RBC 0.00 (0.00-0.00) K/mm3 Nucleated RBC % 0.0 (0-0.0) % Sodium 138 (137-145) mmol/L Potassium 3.7 (3.4-5.0) mmol/L Chloride 106 (98-107) mmol/L Carbon Dioxide 21 L (22-30) mmol/L Anion Gap 11 (4-12) mmol/L BUN 18 (9-20) mg/dL Creatinine 1.10 (0.7-1.3) mg/dL Estim Creat Clear Calc 74 ml/min Estimated GFR > 60 (59 - ) Glucose 181 H (65-110) mg/dL Calculated Osmolality 292 (285-295) mOsm/kg Uric Acid 4.4 (3.5-8.5) mg/dL Calcium 9.7 (8.4-10.2) mg/dL Total Bilirubin 0.5 (0.2-1.3) mg/dL AST 26 (17-59) U/L ALT 26 (6-50) U/L Alkaline Phosphatase 57 (38-126) U/L Total Creatine Kinase 50 L (55-170) U/L C-Reactive Protein 1.9 H (<1.0) mg/dL Total Protein 7.6 (6.3-8.2) g/dL Albumin 4.5 (3.5-5.1) g/dL Cycl Citrul Peptide IgG Pending CARMEN Ref Lab Pending Discharge Plan Discharge Clinical Impression: Allergic reaction Qualifiers: Encounter type: initial encounter Qualified Code(s): T78.40XA - Allergy, unspecified, initial encounter Contact dermatitis Qualifiers: Contact dermatitis type: unspecified Contact dermatitis trigger: unspecified trigger Qualified Code(s): L25.9 - Unspecified contact dermatitis, unspecified cause Patient Disposition: Home Condition: Stable Instructions: Antibiotic Form, Contact Dermatitis (ED) Patient Language: Gibraltarian Prescriptions: No Action fluoxetine 40 mg capsule 40 mg PO DAILY enalapril maleate 5 mg tablet 5 mg PO DAILY metoprolol succinate 50 mg tablet extended release 24 hr 50 mg PO DAILY allopurinol 100 mg tablet 100 mg PO BID glipizide 2.5 mg tablet extended release 24hr 2.5 mg PO DAILY montelukast 10 mg tablet 10 mg PO DAILY metformin 500 mg tablet extended release 24 hr 2,000 mg PO DAILY Rx Instructions: see RX for instructions loratadine 10 mg tablet 10 mg PO BID Fish Oil Capsule 500 mg PO DAILY fenofibrate 160 mg tablet 160 mg PO DAILY Invokana 300 mg tablet 300 mg PO DAILY atorvastatin 80 mg Tablet 80 mg PO DAILY mupirocin 2 % ointment 1 applic topical BID Qty: 22 0RF clindamycin HCl 300 mg capsule 300 mg PO Q8H Qty: 30 0RF Rx Instructions: take with food indomethacin 50 mg capsule 50 mg PO TID 7 Days Qty: 21 0RF Rx Instructions: administer with food or milk Follow-up/Referrals: Juan Joe M.D. [Primary Care Provider] - Time of Disposition: 23:01
--- OUTSIDE RECORDS SUMMARY | 2025-04-01 21:49 | XMS_ITS | Encounter Summary ---
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
--- OUTSIDE RECORDS SUMMARY | 2025-04-01 21:49 | XMS_ITS | Clinical Summary ---
Author Organization [facility] Address [address] [place] [address] Phone Care Team Providers Care Business Development Analyst Name Role Phone Fam Hinton MD Primary [...] Use in each nostril as directed. Active [place]-3 Fatty Acids (OMEGA-3 FISH OIL PO) Take [...] Comments Blood Pressure 118/62 08/15/2022 11:04 AM TURN OUT WORKER Pulse 88 08/15/2022 8:34 AM TURN OUT WORKER Temperature 36.4 C (97.5 F) 08/15/2022 8:34 AM TURN OUT WORKER Respiratory Rate 16 08/15/2022 8:34 AM TURN OUT WORKER Oxygen Saturation 97% 08/15/2022 8:34 AM TURN OUT WORKER Inhaled Oxygen Concentration - - Weight 102.5 kg (226 lb) 08/15/2022 8:34 AM TURN OUT WORKER Height 180.3 cm (5' 11) 08/15/2022 8:34 AM TURN OUT WORKER Body Mass Index 31.52 08/15/2022 8:34 AM TURN OUT WORKER Plan of Treatment Health Maintenance Due Date [...] HEPATITIS C ANTIBODY STAT 08/04/2017 1:08 PM TURN OUT WORKER from Last 3 Months or Most Recently Relevant to Health Maintenance Results * Hepatitis C Antibody (08/04/2017 1:08 PM TURN OUT WORKER) hepatitis C antibody 0.41 <1 S/CO 08/04/2017 11:58 PM TURN OUT WORKER [facility] Comment: Signal/Cutoff ratio < 0.79 is Nondetected Signal/Cutoff ratio 0.80-0.99 is Grayzone Signal/Cutoff ratio > 0.99 is Detected Supplemental assays are recommended if signal/cutoff ratio is >/=1.00. Signal/cutoff ratio result >/= 5.00 is 97% predictive of positivity for recombinant immunoblot assay (RIBA) and will be reported to the [place] Department of Public Health as required. Blood specimen (specimen) Venipuncture / Unknown 08/04/2017 1:08 PM TURN OUT WORKER 08/04/2017 1:13 PM TURN OUT WORKER us Vern Lei PAC CHEMISTRY ORDERABLES Final Result [facility] [address] [place] [address], [place] from Last 3 Months or Most Recently Relevant to Health Maintenance Insurance [facility] WPS XXXWKC [facility] GENERIC XXXWKC [facility] XXXWKC [facility] GENERIC [facility]IC XXXWKC [facility] GENERIC [id number] GENERIC XXXWKC [facility]C [facility] Care Teams Business Development Analyst Relationship Specialty Start Date End Date Fam Hinton MD [address] [place] [address] PCP - General General Surgery 08/04/17
--- OUTSIDE RECORDS SUMMARY | 2025-04-01 21:49 | XMS_ITS | Clinical Summary ---
Author Organization [facility] Address [facility] [place] [address] Care Team Providers Care Health Informatics Specialist Name Role Phone Juan Joe MD Primary Care Provider [phone] Allergies Active Allergy Reactions Criticality Noted Date [...] (40 mg total) by mouth daily. 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 Gender Identity Not on file Sexual Orientation [...] - 2023-2 5 season) 2024 PHQ-2 (Physician Manzanita) 09/28/2024 DTaP, Tdap and Td Vaccines ( [...] this topic Medical Devices Implanted Type Area Flag Car Driver Device Identifier Shelf Expiration Date Model / Serial / Lot Graft Bone Bonus Triad Cancellous Cortical 5cc Allograft - [id number] Implanted:Qty: 1 on 11/29/2020 by Aniya Lugo MD at [facility] Bone Right: Ankle [employer] 10/20/2024 [id number] / [id number] / N/A 5.5 X 40 Non Locking Screw Implanted:Qty: 2 on 11/29/2020 by Aniya Lugo MD at [facility] Right: Ankle [employer] [id number] / / 3.5 X 28 Mm Locking Screw Implanted:Qty: 1 on 11/29/2020 by Aniya Lugo MD at [facility] Right: Ankle [employer] [id number] / / NA Cody Anterior Plate Implanted:Qty: 1 on 11/29/2020 by Aniya Lugo MD at [facility] Right: Ankle [employer] [id number] / / NA 3.5 X 34 Mm Locking Screw Implanted:Qty: 1 on 11/29/2020 by Aniya Lugo MD at [facility] Right: Ankle [employer] [id number] / / NA 5.5 X 30 Mm Non Locking Screw Implanted:Qty: 1 on 11/29/2020 by Aniya Lugo MD at [facility] Right: Ankle [employer] [id number] / / NA 5.5 X 32 Mm Locking Screw Implanted:Qty: 2 on 11/29/2020 by Aniya Lugo MD at [facility] Right: Ankle [employer] [id number] / / NA 5.5 X 38 Non Locking Screw Implanted:Qty: 1 on 11/29/2020 by Aniya Lugo MD at [facility] Right: Ankle [employer] [id number] / / Explanted Type Area Flag Car Driver Device Identifier Shelf Expiration Date Model / Serial / Lot Drill Bit 2.5mm X 60mm Vionic - [id number] Explanted:Qty: 1 on 11/29/2020 by Aniya Lugo MD at [facility] Drill Right: Ankle [employer] [id number] / / 3.8 Mm Drill Explanted:Qty: 1 on 11/29/2020 by Aniya Lugo MD at [facility] Right: Ankle [employer] [id number] / / NA Temporary Fixation Pin Explanted:Qty: 1 on 11/29/2020 by Aniya Lugo MD at [facility] Right: Ankle [employer] [id number] / / NA 2.5 K-Wire Explanted:Qty: 1 on 11/29/2020 by Aniya Lugo MD at [facility] Right: Ankle [employer] [id number] / / NA Procedures Procedure Name Priority [...] Documents on File Type Date Recorded Patient Project Production Engineer Expl anation Legal Documents 05/28/2021 11:04 AM RECVD & CMPLTD ATTY REQ. FOR HB BILLS FOR SFL FOR RACHELLE CORCORAN LAW Care Teams Health Informatics Specialist Relationship Specialty Start Date End Date Juan Joe MD [address] [place] [address] PCP - General FAMILY PRACTICE 08/01/19
--- OUTSIDE RECORDS SUMMARY | 2025-04-01 21:49 | XMS_ITS | Continuity of Care Document ---
Author Organization [facility] Address [address] [place] [address] Phone Care Team Providers Care Cone Machine Feeder Name Role Phone Fawn Adams DPM Unavailable Unavailable Procedures Procedure Date Medical Testimony Deposition X-ray exam foot, minimum 3 views 2022 Independent Medical Examination SAGAR Pre Payment Advance Directives Directive Yes / No Effective Date File Name No Information Encounters Encounter Description Practice Location Reason(s) For Visit Diagnoses Date Provider Providers Copied on Encounter [facility], [address] [place] [address], [id number], [place] tel:[phone] [facility] No Information 4 Angie R. [address] [facility], [address], [id number] , [place]. tel: [phone] Independent Medical Examination SAGAR [facility], [address] [place] [address], [id number], [place] tel:[phone] [facility] right ankle (chief complaint) Pain in right ankle and joints of right foot 3 Angie R. [address] [facility], [facility] [address], [place], [place], [id number] , [place]. tel: [phone] [facility], [address] [place] [address], [id number], tel:[phone] [facility] No Information 3 Angie Pyle [facility], [address], [place], [place], [id number] , . tel: [phone] Family History Family Member Type Diagnosis Age At Onset Mother Problem (finding) Gout Father Problem (finding) Stroke Sister Problem (finding) Cancer, unknown Father Problem (finding) Heart Disease Mother Problem (finding) Osteoarthritis Payers Payer name Insurance type Covered constitution party ID Authoriza tion(s) No Information Social [...]
--- OUTSIDE RECORDS SUMMARY | 2025-04-01 21:49 | XMS_ITS | Continuity of Care Document ---
Author Name [facility] Organization [facility] Care Team Providers Care Poultry Slaughterer Name Role Phone [facility] Unavailable Unavailable Problems Combined list of problems from Department of Defense and Veterans Affairs facilities. It does not include entries that were removed or entered in error. Problem Status Onset Date Problem Type Date of Resolution Comments Source Allergic rhinitis Active Condition [facility] Ankle pain Active Condition [facility] Bilateral Dupuytren's disease of palm of hands Active Condition [facility] Closed fracture of fifth metatarsal bone of left foot Active Condition [facility] Diabetes mellitus Active Condition [facility] Exposure to potentially hazardous substance Active Condition [facility] Gout Active Condition [facility] Hearing loss Active Condition [facility] Hyperlipidemia Active Condition [facility] Hypertensive disorder Active Condition [facility] Hypertriglyceridemia Active Condition [facility] Knee pain Active Condition [facility] Low back pain Active Condition [facility] Mood [facility] Active Condition [facility] NASAL ALLERGIES Active Condition [facility] Obesity Active Condition [facility] Osteomalacia Active Condition [facility] Shoulder pain Active Condition [facility] Sleep apnea Active Condition [facility] Tinnitus Active Condition [facility] Type 2 diabetes mellitus Active Condition [facility] Diagnosis: ICD-10-CM E11.9 Type 2 diabetes mellitus without complications Active Diagnosis [facility] Diagnosis: ICD-10-CM Z71.9 Counseling, unspecified Active Diagnosis [facility] Diagnosis: ICD-10-CM G47.33 Obstructive sleep apnea (adult) (pediatric) Active Diagnosis [facility] Diagnosis: ICD-10-CM F39 Unspecified mood [affective] disorder Active Diagnosis [facility] Diagnosis: ICD-10-CM M25.571 Pain in right ankle and joints of right foot Active Diagnosis [facility] Diagnosis: ICD-10-CM E78.5 Hyperlipidemia, unspecified Active Diagnosis [facility] Diagnosis: ICD-10-CM Z13.5 Encounter for screening for eye and ear disorders Active Diagnosis [facility] Diagnosis: ICD-10-CM I10 Essential (primary) hypertension Active Diagnosis [facility] Diagnosis: ICD-10-CM M54.2 Cervicalgia Active Diagnosis [facility] Diagnosis: ICD-10-CM 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 Diagnosis: ICD-10-CM E11.8 Type 2 diabetes mellitus with unspecified complications Active Diagnosis [facility] Medications Combined list of outpatient medications from [...] (APAP) FROM ALL MEDS. ORAL ACTIVE 08/30/2025 [id number] JUVENCIODEBORAH A D 2023 300 [facility] ACETAMINOPH EN 500MG TAB TAKE ONE TABLET BY MOUTH FOUR TIMES A DAY NEEDED CAUTION: DO NOT EXCEED 4000MG PER DAY ACETAMIN OPHEN (APAP) FROM ALL MEDS. ORAL DISCONT INUED 06/10/2024 [id number] 4 JUVENCIO,DEBORAH A D 2023 300 [facility] ALLOPURINOL 100MG TAB TAKE ONE TABLET BY MOUTH TWICE A DAY ORAL ACTIVE JUVENCIO,DEBORAH A D 2021 [facility] ATORVASTATI N CA 80MG TAB TAKE ONE-HALF TABLET BY MOUTH EVERY EVENING ORAL ACTIVE JUVENCIO,DEBORAH A D 2023 [facility] CANAGLIFLOZ IN 300MG TAB TAKE ONE TABLET BY MOUTH ONCE A DAY ORAL ACTIVE JUVENCIO,DEBORAH A D 2021 [facility] CHOLECALCIF KATIE 50MCG (2,000UNIT) TAB TAKE ONE TABLET BY MOUTH ONCE A DAY ORAL ACTIVE JUVENCIO,DEBORAH A D 2023 [facility] CHOLECALCIF KATIE 50MCG (2,000UNIT) TAB TAKE ONE TABLET BY MOUTH ONCE A DAY ORAL ACTIVE JUVENCIO,DEBORAH A D 2022 [facility] CYCLOBENZAP RINE HCL 10MG TAB TAKE ONE TABLET BY MOUTH THREE TIMES A DAY NEEDED MAY CAUSE DROWSINE SS. DO NOT DRINK ALCOHOL WHILE TAKING THIS MEDICATI ON. ORAL 04/21/2024 [id number] Fito ROSADO ATRIJACQUIA F 2023 30 [facility] ENALAPRIL MALEATE 5MG TAB TAKE ONE TABLET BY MOUTH ONCE A DAY ORAL ACTIVE HARPAL ADORNO TTA 2013 [facility] FENOFIBRATE 160MG TAB TAKE ONE TABLET BY MOUTH ONCE A DAY ORAL ACTIVE JUVENCIO,DEBORAH A D 2021 [facility] FISH OIL 1000MG (500MG DHA/EPA) CAP,ORAL TAKE BY MOUTH Q DAILY ORAL ACTIVE JUVENCIO,DEBORAH A D 2023 [facility] FISH OIL 1000MG (500MG DHA/EPA) CAP,ORAL TAKE 1 CAPSULE BY MOUTH TWICE A DAY ORAL ACTIVE JUVENCIO,DEBORAH A D 2023 [facility] FLUOXETINE HCL 20MG CAP TAKE 2 CAPSULES BY MOUTH EVERY MORNING ORAL ACTIVE Maria Esther CARMICHAEL 2016 [facility] FLUTICASONE PROPIONATE 50MCG/SPRAY SOLN,NASAL, 16GM INSTILL 2 SPRAYS IN NOSTRIL( S) ONCE A DAY NASAL ACTIVE JUVENCIO,DEBORAH A D 2021 [facility] GLIPIZIDE 5MG TAB TAKE ONE-HALF TABLET BY MOUTH Q DAIY ORAL ACTIVE DEBORAH HENNING Jaydon D 2023 [facility] IBUPROFEN 400MG TAB TAKE ONE TABLET BY MOUTH FOUR TIMES A DAY NEEDED FOR PAIN TAKE WITH FOOD. ORAL DISCONT INUED BY PROVIDE R 06/10/2024 [id number] DEBORAH HENNING Jaydon D 2023 360 [facility] IPRATROPIUM BR 0.06% SOLN,SPRAY, NASAL USE 1 SPRAY INTO NOSTRIL( S) TWICE A DAY FOR NON-JESSE RGIC RHINITIS NASAL ACTIVE 12/01/2025 [id number] Ирина DIAZ MD 2024 15 [facility] LIDOCAINE 5% OINT,TOP APPLY LIGHTLY TO AFFECTED AREA(S) ONCE A DAY NEEDED FOR PAIN TOPICA L 12/23/2024 [id number] Maria Esther INIGUEZIMHAWA N 2024 35 [facility] LORATADINE 10MG TAB TAKE ONE TABLET BY MOUTH ONCE A DAY ORAL ACTIVE HARPAL ADORNO TTA 2013 [facility] Hugo MELOXICAM 15MG TAB TAKE ONE TABLET BY MOUTH ONCE A DAY NEEDED FOR PAIN ORAL ACTIVE 12/21/2025 [id number] 5 Maria Esther INIGUEZIMMA N 2024 30 [facility] MELOXICAM 15MG TAB TAKE ONE TABLET BY MOUTH ONCE A DAY NEEDED FOR PAIN ORAL DISCONT INUED 12/23/2024 [id number] 5 Maria Esther INIGUEZ HIDIMMA N 2024 30 [facility] METFORMIN HCL 1000MG TAB TAKE ONE TABLET BY MOUTH TWICE A DAY WITH MEALS ORAL ACTIVE HARPAL ADORNO TTA 2013 [facility] METOPROLOL SUCCINATE 100MG TAB,SA TAKE ONE-HALF TABLET BY MOUTH ONCE A DAY ORAL ACTIVE Maria Esther CARMICHAEL 2014 [facility] NAPROXEN 500MG TAB TAKE ONE TABLET BY MOUTH TWICE A DAY TAKE WITH FOOD. ORAL 04/21/2024 [id number] 4 ASHLEEP ATRICIA F 2023 60 [facility] Allergies, Adverse Reactions, Alerts Combined list of allergies from [facility] facilities. It does not include entries that were removed or entered in error. Substance Category Reaction Severity Reaction type Status Date Reported Comments Source LISINOPRIL Propensity to adverse reactions to drug (finding) active 8 [facility] LOSARTAN Propensity to adverse reactions to drug (finding) Angioedema active 2 [facility] PERCOCET Propensity to adverse reactions to drug (finding) Airway constrictio n active 2 [facility] Immunizations Combined list of available immunizations from the [facility] facilities. Immunization Series Date Given Administered By Site Reaction Lot Number CVX Code Drug Sql Manager Status Comments Source INFLUENZA, SPLIT VIRUS, TRIVALENT, PF 2023 JACOB LINTON A LEFT DELTO ID [id number] 140 complet ed [facility] TDAP 2023 WANDA MONTANO RIGHT DELTO ID [id number] 115 complet ed [facility] ZOSTER RECOMBINANT 2 2022 GRANT SCHAFER RIGHT DELTO ID [id number] 187 complet ed [facility] PNEUMOCOCCAL CONJUGATE PCV20, POLYSACCHARID E [id number] CONJUGATE, ADJUVANT, PF 2022 JACOB LINTON A RIGHT DELTO ID [id number] 216 complet ed [facility] ZOSTER RECOMBINANT 2022 JACOB LINTON A LEFT DELTO ID [id number] 187 complet ed [facility] INFLUENZA, INJECTABLE, QUADRIVALENT, PRESERVATIVE FREE 2020 150 complet ed [facility] COVID-19 (PFIZER), MRNA, LNP-S, PF, 30 MCG/0.3 ML DOSE 2 2020 208 complet ed PFR; [id number]; 1 [facility] COVID-19 (PFIZER), MRNA, LNP-S, PF, 30 MCG/0.3 ML DOSE 1 2020 208 complet ed PFR; [id number]; 1 [facility] INFLUENZA, UNSPECIFIED FORMULATION 2017 88 complet ed [facility] INFLUENZA, UNSPECIFIED FORMULATION 2016 88 complet ed [facility] INFLUENZA, UNSPECIFIED FORMULATION 2014 88 complet ed [facility] PNEUMOCOCCAL POLYSACCHARID E [id number] 2014 NONE 33 complet ed Completed Series, [facility] INFLUENZA, UNSPECIFIED FORMULATION 2013 88 complet ed [facility] INFLUENZA, UNSPECIFIED FORMULATION 2013 NONE 88 complet ed Completed Series, [facility] N TDAP 2012 115 complet ed Right Deltoid [facility] INFLUENZA, UNSPECIFIED FORMULATION 2011 88 complet ed [facility] INFLUENZA, UNSPECIFIED FORMULATION 2010 88 complet ed [facility] INFLUENZA, UNSPECIFIED FORMULATION 2009 88 complet ed [facility] Results Combined list of recent [...] May 24, 2024 10:04 AM Reporting Lab: [facility] [address] [facility] [phone] Performing Lab: [facility] [address] [facility] [phone] [facility] MICRAL/CR EAT PROFILE (STL) ALBUMIN/CRE ATININE [MASS RATIO] IN URINE 20 mg/g 0 - 29 11/30 Specimen Type: URINE No comment entered. Ordering Provider: DILEEP HENNING Report Released Date/Time: May 24, 2024 10:04 AM Reporting Lab: [facility] [address] [place] [phone] Performing Lab: [address] [address] [facility] MICRAL/CR EAT PROFILE (STL) CREATININE [MASS/VOLUM E] IN URINE 50.1 mg/dL 63 - 166 11/30 L Specimen Type: URINE No comment entered. Ordering Provider: DILEEP HENNING Report Released Date/Time: May 24, 2024 10:04 AM Reporting Lab: [address] [address] Performing Lab: [address] [phone] [place] [address] HGA1C HEMOGLOBIN A1C/HEMOGLO BIN.TOTAL IN BLOOD 6.9 4.0 - 6.0 11/30 H Specimen Type: BLOOD No comment entered. Ordering Provider: DILEEP HENNING Report Released Date/Time: May 24, 2024 10:04 AM Reporting Lab: [address] [address] Performing Lab: [address] [address] [facility] LIPID PANEL (STL) CHOLESTEROL [MASS/VOLUM E] IN SERUM OR PLASMA 186 mg/dL 0 - 200 11/30 Specimen Type: PLASMA Comment: LDL calculation invalid when Triglycerid e exceeds 250 mg/dl Ordering Provider: DILEEP HENNING Report Released Date/Time: May 25, 2024 03:34 PM Reporting Lab: [address] [address] Performing Lab: [address] [address] [facility] LIPID PANEL (STL) TRIGLYCERID E [MASS/VOLUM E] IN SERUM OR PLASMA 274 mg/dL 0 - 150 11/30 H Specimen Type: PLASMA Comment: LDL calculation invalid when Triglycerid e exceeds 250 mg/dl Ordering Provider: DILEEP HENNING Report Released Date/Time: May 25, 2024 03:34 PM Reporting Lab: [address] [address] Performing Lab: [address] [address] [facility] LIPID PANEL (STL) CHOLESTEROL IN LDL [MASS/VOLUM E] IN SERUM OR PLASMA BY DIRECT ASSAY 126 mg/dL 100 11/30 Specimen Type: PLASMA Comment: LDL calculation invalid when Triglycerid e exceeds 250 mg/dl Ordering Provider: DILEEP HENNING Report Released Date/Time: May 25, 2024 03:34 PM Reporting Lab: [address] [address] Performing Lab: [address] [address] [facility] LIPID PANEL (STL) CHOLESTEROL IN LDL [MASS/VOLUM E] IN SERUM OR PLASMA BY CALCULATION commen tmg/dL 11/30 Specimen Type: PLASMA Comment: LDL calculation invalid when Triglycerid e exceeds 250 mg/dl Ordering Provider: DILEEP HENNING Report Released Date/Time: May 25, 2024 03:34 PM Reporting Lab: [address] [address] Performing Lab: [address] [address] [facility] LIPID PANEL (STL) CHOLESTEROL IN HDL [MASS/VOLUM E] IN SERUM OR PLASMA 49 mg/dL 40 11/30 Specimen Type: PLASMA Comment: LDL calculation invalid when Triglycerid e exceeds 250 mg/dl Ordering Provider: DILEEP HENNING Report Released Date/Time: May 25, 2024 03:34 PM Reporting Lab: [address] [address] Performing Lab: [place] [address] [place] [address] [facility] GLUCOSE,B LOOD-poct (STL) GLUCOSE [MASS/VOLUM E] IN BLOOD BY AUTOMATED TEST STRIP 124 mg/dL 72 - 99 08/18 H Specimen Type: BLOOD Comment: Test Performed by: [id number] Meter #: [id number] Ordering Provider: DILEEP HENNING Report Released Date/Time: Aug 18, 2024 03:57 PM Reporting Lab: [address] [address] Performing Lab: [address] [address] [facility] HGA1C HEMOGLOBIN A1C/HEMOGLO BIN.TOTAL IN BLOOD 6.6 4.0 - 6.0 05/24 H Specimen Type: BLOOD No comment entered. Ordering Provider: DILEEP HENNING Report Released Date/Time: May 24, 2024 09:16 AM Reporting Lab: [facility] [address] [place] [address] Performing Lab: [address] [address] [facility] LIPID PANEL (STL) CHOLESTEROL [MASS/VOLUM E] IN SERUM OR PLASMA 197 mg/dL 0 - 200 05/24 Specimen Type: PLASMA Comment: LDL calculation invalid when Triglycerid e exceeds 250 mg/dl No hemolysis noted. Ordering Provider: DILEEP HENNING Report Released Date/Time: May 24, 2024 09:16 AM Reporting Lab: [facility] [address] [place] [phone] Performing Lab: [facility] [address] [place] [phone] [facility] LIPID PANEL (STL) TRIGLYCERID E [MASS/VOLUM E] IN SERUM OR PLASMA 1148 mg/dL 0 - 150 05/24 H Specimen Type: PLASMA Comment: LDL calculation invalid when Triglycerid e exceeds 250 mg/dl No hemolysis noted. Ordering Provider: DILEEP HENNING Report Released Date/Time: May 24, 2024 09:16 AM Reporting Lab: [facility] [address] [facility] [address] Performing Lab: [facility] [address] [place] [phone] [facility] LIPID PANEL (STL) CHOLESTEROL IN LDL [MASS/VOLUM E] IN SERUM OR PLASMA BY DIRECT ASSAY 90 mg/dL 100 05/24 L Specimen Type: PLASMA Comment: LDL calculation invalid when Triglycerid e exceeds 250 mg/dl No hemolysis noted. Ordering Provider: DILEEP HENNING Report Released Date/Time: May 24, 2024 09:16 AM Reporting Lab: [address] [address] Performing Lab: [address] [address] [facility] LIPID PANEL (STL) CHOLESTEROL IN LDL [MASS/VOLUM E] IN SERUM OR PLASMA BY CALCULATION commen tmg/dL 05/24 Specimen Type: PLASMA Comment: LDL calculation invalid when Triglycerid e exceeds 250 mg/dl No hemolysis noted. Ordering Provider: DILEEP HENNING Report Released Date/Time: May 24, 2024 09:16 AM Reporting Lab: [facility] [address] [place] [phone] Performing Lab: [address] [address] [facility] LIPID PANEL (STL) CHOLESTEROL IN HDL [MASS/VOLUM E] IN SERUM OR PLASMA 36 mg/dL 40 05/24 L Specimen Type: PLASMA Comment: LDL calculation invalid when Triglycerid e exceeds 250 mg/dl No hemolysis noted. Ordering Provider: DILEEP HENNING Report Released Date/Time: May 24, 2024 09:16 AM Reporting Lab: [facility] [address] [place] [phone] Performing Lab: [facility] [address] [place] [phone] [facility] MAGNESIUM MAGNESIUM [MASS/VOLUM E] IN SERUM OR PLASMA 1.9 mg/dL 1.6 - 2.6 05/24 Specimen Type: PLASMA Comment: LDL calculation invalid when Triglycerid e exceeds 250 mg/dl No hemolysis noted. Ordering Provider: DILEEP HENNING Report Released Date/Time: May 24, 2024 10:03 AM Reporting Lab: [address] [address] Performing Lab: [address] [address] [facility] MICRAL/CR EAT PROFILE (STL) ALBUMIN [MASS/VOLUM E] IN URINE 25.7 mg/L 05/24 Specimen Type: URINE No comment entered. Ordering Provider: DILEEP HENNING Report Released Date/Time: May 24, 2024 09:16 AM Reporting Lab: [address] [address] Performing Lab: [phone] [place] [address] MICRAL/CR EAT PROFILE (STL) ALBUMIN/CRE ATININE [MASS RATIO] IN URINE 42 mg/g 0 - 29 05/24 H Specimen Type: URINE No comment entered. Ordering Provider: DILEEP HENNING Report Released Date/Time: May 24, 2024 09:16 AM Reporting Lab: [address] [address] Performing Lab: [address] [phone] [place] [address] MICRAL/CR EAT PROFILE (STL) CREATININE [MASS/VOLUM E] IN URINE 61.8 mg/dL 63 - 166 05/24 L Specimen Type: URINE No comment entered. Ordering Provider: DILEEP HENNING Report Released Date/Time: May 24, 2024 09:16 AM Reporting Lab: [address] [address] Performing Lab: [address] [address] [facility] PROST. SPECIFIC AG.(PB-ST L) PROSTATE SPECIFIC AG [...] May 24, 2024 09:16 AM Reporting Lab: [facility] [address] [facility] [address] Performing Lab: [place] [id number] [facility] [address] [facility] URIC ACID URATE [MASS/VOLUM E] IN SERUM OR PLASMA 4.9 mg/dL 3.5 - 7.2 05/24 Specimen Type: PLASMA Comment: LDL calculation invalid when Triglycerid e exceeds 250 mg/dl No hemolysis noted. Ordering Provider: DILEEP HENNING Report Released Date/Time: May 24, 2024 10:11 AM Reporting Lab: [facility] [address] [facility] [address] Performing Lab: [address] [address] [facility] Vital Signs Combined list of inpatient and outpatient Vital Signs from Department of Defense and Veterans Affairs, ranging from 12 months to all on record, depending upon the facility. Vital Sign Value Date Comments Source SYSTOLIC BLOOD PRESSURE 128 08/18/20 24 14:31:22 [facility] DIASTOLIC BLOOD PRESSURE 75 024 14:31:22 [facility] PULSE OXIMETRY 97 08/18/2024 14:31:22 [facility] WEIGHT 216.2 08/18/2024 14:31:22 [facility] BMI 30 kg/m2 08/18/2024 14:31:22 [facility] PAIN 4 08/18/2024 14:31:22 [facility] HEIGHT 71 08/18/2024 14:31:22 [facility] TEMPERATURE 98 08/18/2024 14:31:22 [facility] PULSE 79 08/18/2024 14:31:22 [facility] RESPIRATION 16 08/18/2024 14:31:22 [facility] SYSTOLIC BLOOD PRESSURE 134 05/24/20 09:44:42 [facility] DIASTOLIC BLOOD PRESSURE 88 024 09:44:42 [facility] PULSE OXIMETRY 98 05/24/2024 09:44:42 [facility] WEIGHT 214.6 05/24/2024 09:44:42 [facility] BMI 30 kg/m2 05/24/2024 09:44:42 [facility] PAIN 3 05/24/2024 09:44:42 [facility] TEMPERATURE 97.5 05/24/2024 09:44:42 [facility] PULSE 76 05/24/2024 09:44:42 [facility] RESPIRATION 16 05/24/2024 09:44:42 [facility] Encounters Combined list of: 1) Encounters from Department of Veterans Affairs facilities going backup to the last 18 months, not all VA inpatient encounters are included; 2) Encounters from the Department of [facility] facilities going backup to 280 months. Location Location Details Encounter Type Encounter Number Reason For Visit Attending Provider ADM Date DC Date Status Disposition Source [facility] OFFICE O/P EST MOD 30 MIN [id number] Diagnos is: ICD-10- CM E11.8 Type 2 diabete s mellitu s with unspeci fied complic ations DILEEP HENNING 10/21 [facility] Outpatient Encounter [id number] 11/12 [facility] THERAPEUTI C ACTIVITIES [id number] Diagnos is: ICD-10- CM M25.571 Pain in right ankle and joints of right foot TITA CRUZ 11/12 [facility] En[facility] [id number] 12/07 [facility] Encounter [id number] 12/21 [facility] OFFICE O/P NEW MOD 45 MIN [id number] Diagnos is: ICD-10- CM M72.0 Palmar fascial fibroma tosis [Dupuyt mason] CAR[place]INA WISDOM [facility] 02/01 [facility] QNHP OL DIG ASSMT&MGMT 5-10 [id number] Diagnos is: ICD-10- CM M72.0 Palmar fascial fibroma tosis [Dupuyt mason] Maria Esther BEARD 02/03 [facility] Outpatient Encounter [id number] 02/07 [facility] [place] [id number] Diagnos is: ICD-10- CM H90.3 Sensori neural hearing loss, bilater JOSÉ MIGUEL Michelle M 02/08 [facility] HEARING AID EXAM BOTH EARS [id number] Diagnos is: ICD-10- CM H90.3 Sensori neural hearing loss, reginaater JOSÉ MIGUEL Michelle M 02/08 [facility] OFFICE O/P EST LOW 20 MIN [id number] Diagnos is: ICD-10- CM M72.0 Palmar fascial fibroma tosis [Dupuyt mason] [place] WISDOM [facility] 02/22 [facility] OT EVAL MOD COMPLEX 45 MIN [id number] Diagnos is: ICD-10- CM M72.0 Palmar fascial fibroma tosis [Dupuyt mason] RANJITH ROD K 02/24 [facility] OFFICE O/P EST SF 10 MIN [id number] Diagnos is: ICD-10- CM M72.0 Palmar fascial fibroma tosis [Dupuyt mason] CAR[place]INA WISDOM [facility] 02/24 [facility] HC PRO PHONE CALL 5-10 MIN [id number] Diagnos is: ICD-10- CM M72.0 Palmar fascial fibroma tosis [Dupuyt mason] CIELO GARCIA 03/09 [facility] Outpatient Encounter [id number] 5 03/10 [facility] HEARING AID SUP/ACCESS /DEV [id number] 5 Diagnos is: ICD-10- CM H90.3 Sensori neural hearing loss, bilater al JOSÉ MIGUEL BACON 03/11 [facility] OFF/OP EST MAY X REQ PHY/QHP [id number] 2 Diagnos is: ICD-10- CM R52 Pain, unspeci fied NATHALIA-TA NNER,EMILY DETTE G 03/11 [facility] OFFICE O/P EST HI 40 [place] [id number] Diagnos is: ICD-10- CM M72.0 Palmar fascial fibroma tosis [Dupuyt mason] CIELO GARCIA RONNA 03/11 [facility] OFFICE O/P EST SF 10 MIN [id number] Diagnos is: ICD-10- CM M72.0 Palmar fascial fibroma tosis [Dupuyt mason] CAROLINA WISDOM ESH 03/22 [facility] OFFICE O/P EST LOW 20 MIN [id number] Diagnos is: ICD-10- CM M54.2 Cervica LEAH OrtizIA F 03/22 [facility] Outpatient Encounter [id number] DILEEP HENNING 04/14 [facility] Outpatient Encounter [id number] 04/19 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, unspeci Maria Esther Escalona F 05/24 [facility] OFFICE O/P EST MOD 30 MIN [id number] Diagnos is: ICD-10- CM I10 Essenti al (primar y) hyperte nsion DILEEP HENNING D 05/24 [facility] Outpatient Encounter [id number] 05/24 [facility] Outpatient Encounter [id number] 05/24 [facility] FUNDUS PHOTOGRAPH Y W/I&R [id number] [id number] Diagnos is: ICD-10- CM Z13.5 Encount er for screeni ng for eye and ear disorde rs DILEEP HENNING 05/24 [facility] Outpatient Encounter [id number] Diagnos is: ICD-10- CM Z13.5 Encount er for screeni ng for eye and ear disorde rs MEIR,NISHA Johnson 05/25 [facility] Outpatient Encounter [id number] Diagnos is: ICD-10- CM E78.5 Hyperli pidemia , unspeci fied DILEEP HENNING 05/25 [facility] OFF/OP EST MAY X REQ PHY/QHP [id number] [id number] Diagnos is: ICD-10- CM Z71.9 Retail Marketing Executive ing, unspeci fiMaria Esther East F 07/08 [facility] Outpatient Encounter [id number] 07/14 [facility] Outpatient Encounter [id number] DILEEP HENNING 08/15 [facility] OFFICE O/P EST LOW 20 MIN [id number] [id number] Diagnos is: ICD-10- CM M25.571 Pain in right ankle and joints of right foot DILEEP HENNIGN 08/18 [facility] Outpatient Encounter [id number] 10/18 [facility] Outpatient Encounter [id number] 10/20 [facility] Outpatient Encounter [id number] DILEEP HENNING 11/21 [facility] SYNCH AUDIO-ONLY EST MOD 30 [id number] Diagnos is: ICD-10- CM F39 Unspeci fied mood [affect navid] disorde KEMAR MorganMMA N 11/23 [facility] OFFICE O/P NEW SF 15 MIN [id number] [id number] Diagnos is: ICD-10- CM G47.33 Obstruc tive sleep apnea (adult) (pediat ez) MEHUL DIAZ MD 11/30 [facility] Outpatient Encounter [id number] 12/01 [facility] Outpatient Encounter [id number] 02/23 [facility] OFF/OP EST MAY X REQ PHY/QHP [id number] Diagnos is: ICD-10- CM Z71.9 Retail Marketing Executive ing, unspeci fied Maria Esther MONTANO 02/24 [facility] DETERMINE REFRACTIVE STATE [id number] [id number] Diagnos is: ICD-10- CM E11.9 Type 2 diabete s mellitu s without complic ations Jaydon RODRIGUEZ 02/28 [facility] Outpatient Encounter [id number] 03/01 [facility] Social History Combined list of available smoking, tobacco, and other social history from [facility] Defense and [facility] facilities. Social History Type Response Date Comment Sourc e Tobacco smoking status NHIS VA-TOBACCO QUIT 15 YRS OR MORE 05/24/2024 [facility] History of tobacco use VA-TOBACCO FORMER USER 05/24/2024 [facility] History of tobacco use VA-TOBACCO QUIT 5 TO < 15 YRS 04/23/2023 [facility] History of tobacco use VA-TOBACCO FORMER USER 03/20/2022 [facility] History of tobacco use VA-TOBACCO FORMER USER 11/22/2020 [facility] History of tobacco use VA-TOBACCO FORMER USER 09/30/2019 [facility] History of tobacco use QUIT TOBACCO >7 YEARS AGO 01/18/2018 [facility] History of tobacco use QUIT TOBACCO >7 YEARS AGO 10/09/2017 [facility] History of tobacco use QUIT TOBACCO >7 YEARS AGO 02/11/2017 [facility] History of tobacco use LIFETIME NON-USER OF TOBACCO 02/20/2016 [facility] History of tobacco use LIFETIME NON-USER OF TOBACCO 12/22/2014 [facility] History of tobacco use LIFETIME NON-USER OF TOBACCO 12/30/2013 [facility] History of tobacco use QUIT TOBACCO >12 MO and <7 YRS AGO 08/03/2012 [facility] Plan of Care List of future care activities from Department [facility] facilities. Additional future care activities may be listed in the Assessment and Plan section. Date/Time Care Activity Care Activity Detail Facili ty 04/07/2025 AMBULATORY - NONE AM[facility]ORY - NONE [facility] Advance Directives List of completed, amended, or rescinded Advance Directives on record at Department [facility] facilities. An actual copy of the Directive is not included. Date Advance Directive Provider Source 02/19/2017 ADVANCE DIRECTIVE DISCUSSION MICHEAL DALTON [facility]
[2025-04-01 22:22] LABS: Hematocrit 44.8 % (40.0-54.0); Hemoglobin 14.8 g/dL (14.0-18.0); Immature Granulocyte Percent A 0.6 % (0.0-0.0); Lymphocytes Absolute Auto 1.56 K/mm3 (1.10-4.50); Mean Corpuscular HGB Conc 33.0 g/dL (32-36); Mean Corpuscular Hemoglobin 29.4 pg (27.0-31.0); Mean Corpuscular Volume 89.1 fL (78.0-102.0); Nucleated Red Blood Cells Absolute Auto 0.00 K/mm3 (0.00-0.00); Nucleated Red Blood Cells Perc 0.0 % (0-0.0); Platelet Count Result 358 K/mm3 (150-420); Red Blood Count 5.03 M/mm3 (4.70-6.10); White Blood Count 8.2 K/mm3 (4.8-10.8)
[2025-04-01 22:41] LABS: Alanine Aminotransferase 26 U/L (6-50); Albumin Level 4.5 g/dL (3.5-5.1); Alkaline Phosphatase 57 U/L (38-126); Anion Gap 11 mmol/L (4-12); Aspartate Amino Transferase 26 U/L (17-59); Bilirubin,Total 0.5 mg/dL (0.2-1.3); Blood Urea Nitrogen 18 mg/dL (9-20); CRP 1.9 mg/dL (<1.0); Calcium 9.7 mg/dL (8.4-10.2); Carbon Dioxide 21 mmol/L (22-30); Chloride 106 mmol/L (98-107); Creatine Kinase 50 U/L (55-170); Estimated CRCL calculation 74 ml/min; Estimated Glomerular Filt Rate > 60; Glucose 181 mg/dL (65-110); Osmolality Calculated 292 mOsm/kg (285-295); Sodium 138 mmol/L (137-145); Total Protein 7.6 g/dL (6.3-8.2); Uric Acid 4.4 mg/dL (3.5-8.5)
[2025-04-01 22:43] LABS: Potassium 3.7 mmol/L (3.4-5.0)
[2025-04-01 23:18] VITALS: BP 147/82; PULSE 72; RESP 16; O2SAT 97
[2025-04-04 13:33] LABS: Cyclic Citrullinated Peptide. <16 UNITS
== END 2025-04-01 23:18 | disposition home or self-care (01) ==
PROVIDERS: Emergency Provider Internal Medicine Critical Care Medicine; PCP Family Medicine
DX: L25.9 Unspecified contact dermatitis, unspecified cause (principal); E11.9 Type 2 diabetes mellitus without complications; I10 Essential (primary) hypertension; E78.5 Hyperlipidemia, unspecified; Z79.891 Long term (current) use of opiate analgesic; Z87.891 Personal history of nicotine dependence
CPT/HCPCS: 36415; 80053; 82550; 84550; 85025; 86038; 86039; 86140; 86200; 96372; 99283; J1200

== ENCOUNTER 2025-04-28 08:54 | Outpatient (RCR) | payer OTHER, SELFPAY ==
--- NOTE | 2025-04-28 11:02 | OPREHPOC ---
Outpatient Therapy Plan of Care This is a Multidisciplinary Plan of Care that may contain components documented by all disciplines (PT, OT, and ST.) PT Problem 1 PT Problem #1 Knowledge Deficit PT Goal 1 Goal / Goal Update independent and compliant with HEP Target Visit 6 PT Problem 2 PT Problem #2 Pain PT Goal 1 Goal / Goal Update no pain in the R ankle Target Visit 12 PT Problem 3 PT Problem #3 Impaired Functional Mobility PT Goal 1 Goal / Goal Update 5/5 toe flex and ext of the R foot. patient to transition to ambulation with no boot and no AD. patient to ambulate up steps with reciprocal mechanics and down steps with marked time pattern. Target Visit 12
--- NOTE | 2025-04-28 11:02 | PTOPEVAL1 ---
Assessment and note entered by JT File, PT Evaluation Information Assessment Status Evaluation Diagnosis s/p R ankle fusion ICD-10 Condition Codes (PT) Pain in right ankle and joints of right foot M25. 571 Onset 03/15/25 Subjective Information patient reports he has a history of multiples fusions now of the R ankle. he reports the initial fusion was back in 2020 when they only fused a portion of the R ankle, but reports now it is fully fused. he reports since surgery it has been itching in his boot. he reports he was initially NWB, but reports he is now beginning to barely put weight on the ankle. Reported Pain Level Pain Score 0: Self Report Assessment PT Clinical Summary mr. mims is a pleasant 64 yo man who presents to skilled PT for rehab following R ankle fusion. he presents with limited R ankle ROM, R ankle and toe weakness, and deficits in weight bearing/ ambulation mechanics. continued skilled PT is advised to improve patients objective/functional deficits to return to his prior level functional activity performance/quality of life. Plan of Care Interventions Electrical Stimulation,Gait Training,Hot Pack/Cold Pack,Manual Therapy,Neuro Re-education,Patient/ Caregiver Education,Therapeutic Activities, Therapeutic Exercise PT Services Indicated Yes Treatment Frequency and 2x weekly for 12 visits Duration These treatments will address the objective and functional deficits as defined above. The patient will be advanced safely and appropriately in order for the patient to progress towards his/her prior level of function. Additional exercises will be introduced and as well as a comprehensive home exercise program upon discharge, if needed, ?to ensure carryover of functional gains achieved in the clinic. This treatment plan has been reviewed and agreement upon by the patient.
--- NOTE | 2025-05-31 15:31 | OPREHPOC ---
Outpatient Therapy Plan of Care This is a Multidisciplinary Plan of Care that may contain components documented by all disciplines (PT, OT, and ST.) PT Problem 1 PT Problem #1 Knowledge Deficit PT Goal 1 Goal / Goal Update independent and compliant with HEP Target Visit 6 Progress Met PT Problem 2 PT Problem #2 Pain PT Goal 1 Goal / Goal Update no pain in the R ankle Target Visit 12 Progress Met PT Problem 3 PT Problem #3 Impaired Functional Mobility PT Goal 1 Goal / Goal Update 5/5 toe flex and ext of the R foot. -not met patient to transition to ambulation with no boot and no AD. -met patient to ambulate up steps with reciprocal mechanics and down steps with marked time pattern. -not met Target Visit 12
--- NOTE | 2025-05-31 15:32 | PTOPPROG ---
Assessment and note entered by Feli Pritchard, PT Evaluation Information Assessment Status Progress Diagnosis s/p R ankle fusion ICD-10 Condition Codes (PT) Pain in right ankle and joints of right foot M25. 571 Onset 03/15/25 Subjective Information Grant reports his right ankle and foot is doing well overall. He has not been having pain does note tightness around his inner lower leg and in the calf. He has been walking without his boot or a cane without difficulty. He will see his surgeon on 06/08/25. Assessment PT Clinical Summary Grant Saenz has completed 10 out of 15 skilled PT visits following R ankle fusion. He is reporting no pain just tightness in the lower leg muscles. He has been able to start walking without a boot or AD. He demonstrates steady improvements in gait, balance, functional strength, and toe ROM. He continues to have decreased balance and decreased toe flexion and extension strength. He will continue to benefit from skilled PT to further address physical and functional limitations and return to PLOF. Plan of Care Interventions Electrical Stimulation,Gait Training,Hot Pack/Cold Pack,Manual Therapy,Neuro Re-education,Patient/ Caregiver Education,Therapeutic Activities, Therapeutic Exercise PT Services Indicated Yes Treatment Frequency and Continue skilled PT for 5 additional visits Duration These treatments will address the objective and functional deficits as defined above. The patient will be advanced safely and appropriately in order for the patient to progress towards his/her prior level of function. Additional exercises will be introduced and as well as a comprehensive home exercise program upon discharge, if needed, ?to ensure carryover of functional gains achieved in the clinic. This treatment plan has been reviewed and agreement upon by the patient.
--- NOTE | 2025-06-19 16:42 | OPREHPOC ---
Outpatient Therapy Plan of Care This is a Multidisciplinary Plan of Care that may contain components documented by all disciplines (PT, OT, and ST.) PT Problem 1 PT Problem #1 Knowledge Deficit PT Goal 1 Goal / Goal Update independent and compliant with HEP Target Visit 6 Progress Met PT Problem 2 PT Problem #2 Pain PT Goal 1 Goal / Goal Update no pain in the R ankle Target Visit 12 Progress Partially Met PT Problem 3 PT Problem #3 Impaired Functional Mobility PT Goal 1 Goal / Goal Update 5/5 toe flex and ext of the R foot. -not met patient to transition to ambulation with no boot and no AD. -met patient to ambulate up steps with reciprocal mechanics and down steps with marked time pattern. met Target Visit 12 Progress Partially Met
--- NOTE | 2025-06-19 16:42 | PTOPDC ---
Assessment and note entered by JT File, PT Evaluation Information Assessment Status Discharge Diagnosis s/p R ankle fusion ICD-10 Condition Codes (PT) Pain in right ankle and joints of right foot M25. 571 Onset 03/15/25 Subjective Information patient reports he is feeling good, and especially has been feeling good since he was able to get out of his boot. he reports he does have a slight bit of pain today, but believes it is his shoes and is going to get new ones soon. Assessment PT Clinical Summary mr. mims presents to skilled PT for his 15th skilled PT visit. he displays improved strength, ambulation, and stair ambulation today. he has met more than 50% of his goals, and partially met the others. as of this date, he will DC skilled PT, and continue with HEP independent at home. Plan of Care PT Services Indicated No
== END 2025-06-16 20:00 | disposition home or self-care (01) ==
LOC: CHSPT 08:54
DX: M25.571 Pain in right ankle and joints of right foot (principal)
CPT/HCPCS: 97110; 97116; 97140; 97150; 97161; 97530